=== PATIENT | female | born 1945 | race Caucasian/White ===

== ENCOUNTER 2016-10-26 14:13 | Inpatient (IN) ==
--- NOTE | 2016-10-26 16:13 | Emergency Department Note ---
Disposition Clinical Impression: Fracture of right tibia Qualifiers: Encounter type: initial encounter Tibia location: distal Fracture type: closed Fracture morphology: unspecified fracture morphology Qualified Code(s): S82.301A - Unspecified fracture of lower end of right tibia, initial encounter for closed fracture Disposition: Admitted As Inpatient Condition: Fair Referrals: Krystle Oseguera MD [Primary Care Provider] - Forms: ED Satisfaction Letter Time of Disposition: 16:28 Lower Extremity Injury HPI - General Chief Complaint: ED Extremity Problem,Nontraumatic Stated Complaint: right foot/ankle injury Time Seen by Provider: 10/26/16 16:11 Source: patient, EMS Mode of arrival: wheelchair Limitations: altered mental status Nursing Notes Reviewed: Yes Vital Signs Reviewed: Yes - History of Present Illness HPI Narrative: 71-year-old female brought to the emergency department for evaluation of the right ankle/right lower extremity injury sustained 3 days ago. The patient states that she "just rolled out of bed onto the floor". She complains of pain and swelling that is well localized to the right ankle and right lower extremity. She denies any numbness or tingling distal to the area of injury. She has not taken any [id number] or prescription medications up to this point in an attempt to alleviate her symptoms. She states that she has been unable to bear weight on the affected extremity since the time of injury. Her friend that accompanies her states that she has laid in bed the entire time since the injury occurred. She denies any head injury or loss of consciousness. She denies any other injuries. Pt Subjective Complaint: leg injury, ankle injury Injury location: Right Leg, Right ankle Onset (ago): day(s) (3 days ago) Mechanism of Injury: fall Context: fell out of bed Place: home Pain Severity: severe Improves with: nothing Worsens with: weight bearing, movement, palpation Associated symptoms: Reports: unable to bear weight - Related Data Previous Rx's Medication Instructions Recorded Nicotine Patch [Nicoderm] 1 each TD DAILY #14 patch.td24 11/02/14 Omeprazole [PriLOSEC] 20 mg PO DAILY 30 Days 11/02/14 Potassium Chloride Elixir 20 meq PO DAILY #7 mls 11/02/14 [Potassium Chloride] Albuterol Neb [Proventil Neb] 2.5 mg IH Q4HR #30 vial.neb 06/17/15 Azithromycin [Zithromax] 250 mg PO DAILY #4 tablet 06/17/15 predniSONE [PredniSONE] 40 mg PO DAILY #8 tablet 06/17/15 Ondansetron ODT [Zofran ODT] 1 - 2 tab SL Q4HR #20 tab.rapdis 06/26/15 Doxycycline Hyclate 100 mg PO BID #20 capsule 04/01/16 predniSONE [PredniSONE] 60 mg PO DAILY 5 Days 04/01/16 Allergies Allergy/AdvReac Type Severity Reaction Status Date / Time No Known Allergies Allergy Verified 06/17/15 17:44 All systems ED: reviewed and negative except as stated. Constitutional: Denies: fever, chills, weakness, weight change Eyes: Denies: eye pain, eye discharge, vision change ENT ED: Denies: ear pain, throat pain, dental pain, hearing loss, epistaxis, congestion, dysphagia Cardiovascular: Denies: chest pain, palpitations, dyspnea on exertion, edema, syncope Respiratory: Denies: cough, dyspnea, wheezes, hemoptysis, stridor Gastrointestinal: Denies: abdominal pain, nausea, vomiting, diarrhea, constipation, hematemesis, melena, hematochezia Genitourinary: Denies: dysuria, frequency, hematuria, discharge Musculoskeletal: Reports: as per HPI, arthralgia (Right ankle and right lower extremity injury). Denies: back pain, neck pain, myalgia Integumentary: Denies: rash, abrasion, lesions Neurological: Denies: headache, weakness, numbness, paresthesias, confusion, abnormal gait, vertigo Psychiatric: Denies: anxiety, depression, suicidal thoughts, homicidal thoughts , auditory hallucinations, visual hallucinations Endocrine: Denies: fatigue Hematological/Lymphatic: Denies: easy bleeding, easy bruising Allergic/Immunologic: Denies: facial swelling, urticaria Past Medical History - Past Medical History Attestation: Yes The following information was validated with the patient. Source: patient, nursing notes reviewed Medical history: Reports: COPD, hyperlipidemia, hypertension Surgical history: Reports: hysterectomy, other Psychiatric history: Reports: no psych history - Social History Smoking Status: Current every day smoker Smokeless Tobacco Status: No Alcohol use: Reports: none Drug use: Reports: none, other Physical Exam - General Limitations: altered mental status General appearance: alert - Head Head exam: atraumatic, normocephalic, normal inspection - Eye Eye exam: Present: normal appearance, PERRL, EOMI. Absent: nystagmus - ENT ENT exam: mucous membranes moist - Neck Neck exam: Present: normal inspection, full ROM, trachea midline - Respiratory Respiratory exam: Present: normal lung sounds bilaterally - Cardiovascular Cardiovascular exam: Present: regular rate, normal rhythm, normal heart sounds - Abdominal Exam Abdominal exam: Present: soft, Non-Tender, normal bowel sounds - Expanded Lower Extremity Exam Hip/Pelvis exam: Present: normal inspection, full ROM Upper leg exam: Present: normal inspection, full ROM Knee exam: Present: normal inspection, full ROM. Absent: tenderness Lower leg exam: Present: tenderness (Tenderness along the entire distal half of the right lower leg), swelling (Moderate degree of swelling noted, distal one half of the right lower leg), ecchymosis (Moderate degree of ecchymosis Noted, distal one half of the right lower leg). Absent: erythema Ankle exam: Present: tenderness (Right ankle diffusely tender to palpation), swelling (Extensive diffuse swelling noted of the right ankle), ecchymosis ( Moderate to severe ecchymosis noted, right ankle). Absent: full ROM (Right ankle), abrasion, laceration Foot/toe exam: Present: swelling (Moderate degree of edema noted, dorsal aspect of right foot). Absent: calcaneal tenderness, tenderness at base of 5th metatarsal Neurovascular/Tendon exam: Present: normal capillary refill. Absent: pulse deficit, tendon deficit, extremity cold to touch Gait: unable to bear weight - Neurological Exam Neurological exam: Present: alert, oriented X3 - Psychiatric Psychiatric exam: Present: normal affect, normal mood - Skin Skin exam: Present: warm, dry, intact, normal color Course Course Narrative: I have discussed this patient's case with Dr. Bautista. Dr. Sousa has had a face- to-face evaluation with the patient. 1620: I have discussed this patient's case with Dr. Ulloa, orthopedic surgeon budget controller. Dr. Ulola recommends the application of a posterior splint and states that the patient should be admitted to the hospitalist service. He states that he will consult the patient once she is on the floor. Posterior splint applied by the ED engine emission technician. Neurovascular status intact status post splinting. 1625: The patient has declined my offer for pain medication at this time. I have informed her to please advise me if she changes her mind. 810: I spoke with Dipak Biggs, hospitalist, who has accepted the patient to the hospitalist service. Vital Signs Temperature 98.2 F 10/26/16 14:42 Pulse Rate 95 10/26/16 14:42 Respiratory Rate 18 10/26/16 14:42 Blood Pressure 121/73 10/26/16 14:42 O2 Sat by Pulse Oximetry 96 10/26/16 14:42 Temperature 98.2 F 10/26/16 14:42 Pulse Rate 95 10/26/16 14:42 Respiratory Rate 18 10/26/16 14:42 Blood Pressure 121/73 10/26/16 14:42 O2 Sat by Pulse Oximetry 96 10/26/16 14:42 Oxygen Delivery Oxygen Delivery Room Air Extremity Injury, Lower - Medical Records Medical records reviewed: Yes I reviewed the patient's medical records. - Lab Data Lab results reviewed: Yes I reviewed the patient's lab results. Result diagrams: 10/26/16 16:47 Lab Results 10/26/16 Range/Units 16:47 WBC 12.2 H (4.3-11.1) K/mcL RBC 4.01 (3.82-4.97) M/mcL Hgb 12.2 (11.5-15.4) g/dL Hct 36.0 (35.3-44.9) % MCV 89.8 (83.0-100.0) fL MCH 30.4 (28.0-33.3) pg MCHC 33.9 (31.6-35.5) g/dL RDW 12.3 (11.5-14.5) % Plt Count 298 (140-400) K/mcL MPV 8.5 L (9.4-12.4) fL Immature Gran % 0.4 (0-4) % Seg Neutrophils % 76.9 % Lymphocytes % 13.7 % Monocytes % 8.6 % Eosinophils % 0.2 % Basophils % 0.2 % Neutrophils # 9.4 H (1.6-8.9) K/mcL Lymphocytes # 1.7 (0.6-4.6) K/mcL Monocytes # 1.1 (0.0-1.3) K/mcL Eosinophils # 0.0 (0.0-0.6) K/mcL Basophils # 0.0 (0.0-0.2) K/mcL - Radiology Data Radiology results reviewed: Yes I reviewed the patient's radiology results. Ankle X-Ray 10/26/16 14:46 IMPRESSION: 1. Comminuted fracture involving the distal tibial diaphysis. D/ / 10/26/2016 15:56:42 Javier Joyner MD / bcarter Interpreting Provider: Javier Joyner MD - EKG Data EKG attestation: Yes I reviewed and interpreted this EKG. EKG results narrative: EKG reviewed by Dr. Bautista as well. EKG shows a sinus rhythm with short SD interval and a possible anterolateral LA of indeterminate age at a rate of 97 bpm. SD interval 99, QRS duration 82, QT/QTc interval 316/371. No ectopy noted. No STEMI.
[2016-10-26 16:53] LABS: Basophils % 0.2 %; Eosinophils % 0.2 %; Hemoglobin 12.2 g/dL (11.5-15.4); Immature Granulocytes % 0.4 % (0-4); Lymphocytes # 1.7 K/mcL (0.6-4.6); Lymphocytes % 13.7 %; Mean Corpuscular HGB Conc 33.9 g/dL (31.6-35.5); Mean Corpuscular Hemoglobin 30.4 pg (28.0-33.3); Mean Corpuscular Volume 89.8 fL (83.0-100.0); Mean Platelet Volume 8.5 fL (9.4-12.4); Monocytes # 1.1 K/mcL (0.0-1.3); Monocytes % 8.6 %; Neutrophils # 9.4 K/mcL (1.6-8.9); Platelet Count 298 K/mcL (140-400); Red Blood Count 4.01 M/mcL (3.82-4.97); Red Cell Distribution Width 12.3 % (11.5-14.5); Segmented Neutrophils % 76.9 %
[2016-10-26 17:08] LABS: BUN/Creatinine Ratio 30 (6-26); Blood Urea Nitrogen 18 mg/dL (7-20); Calcium 9.4 mg/dL (8.6-10.8); Carbon Dioxide 30 mEq/L (19-29); Chloride 96 mEq/L (98-109); Glucose 105 mg/dL (70-99); Osmolality,Calculated 272 (280-300); Sodium 130 mEq/L (136-145); eGFR For African Americans > 60 (> 60); eGFR For Non-African Americans > 60 (> 60)
[2016-10-26 17:11] LABS: INR 1.1; Prothrombin Time 11.9 Seconds (9.4-12.1)
[2016-10-26 17:14] LABS: Activated Partial Thrombo Time 23.3 Seconds (26.0-36.0)
--- NOTE | 2016-10-26 19:28 | Orthopedic Consult Note ---
Date of Encounter: 10/26/16 Time of Encounter: 19:23 History of Present Illness Chief complaint: Right ankle pain HPI: Ms. Choi is a 71 year old female who sustained an injury to her right ankle at home up probably 3 days ago. She has been unable to ambulate with any weightbearing on the right lower extremity. She was ultimately brought to the emergency room by squad where x-rays taken revealed evidence of a right tibia fracture. She was admitted for further management. Pertinent orthopedic examination to his time reveals the right lower extremity in a posterior splint. There appears to be intact distal neurosensory exam. I reviewed x-rays of the right ankle. This reveals some generalized osteopenia. There is a nondisplaced fracture of the distal metadiaphyseal region of the tibia. Impression: Nondisplaced fracture right distal tibia (metadiaphyseal) Recommendation: With a true nondisplaced fracture and the patient's rather frail condition with multiple underlying medical conditions, would recommend a conservative management. At this time would continue with a posterior splint until swelling has subsided. We will change to a more definitive immobilization at follow-up as an outpatient. In the meantime will start physical therapy and occupational therapy with social security specialist consultation for discharge planning. Thank you very much for allowing me to seen care for Mrs. Choi. Sincerely, Ochoa Ulloa,DO Past Med Surg Social Fam HX - Past Medical History Medical history: COPD, hyperlipidemia, hypertension Psychiatric history: no psych history - Past Surgical History Surgical History: hysterectomy, other - Social History Smoking Status: Current every day smoker Smokeless Tobacco Status: No Alcohol use: none Drug use: none - Family History Mother Family Member Ethnicity: Non- Living Status: Hx Family Cardiac Disorders: No Hx Family Respiratory Disorders: No Hx Family Cancer: Yes Hx Family GI Disorders: No Hx Family Endocrine Disorder: No Hx Family Neuromuscular Disorders: No Hx Family Neurologic Disorders: No Hx Family HEENT Disorders: No Hx Family Autoimmune Disorders: No Father Living Status: Unknown Medications and Allergies Aclidinium [place] [Tudorza Pressair] 1 puff IH BID 10/26/16 [History] Albuterol Sulfate [Ventolin Hfa] 2 puff IH Q4-6H PRN 10/26/16 [History] Alendronate Sodium [Fosamax] 70 mg PO QWEEK 10/26/16 [History] Benztropine [Cogentin] 1 mg PO HS 10/26/16 [History] Calcium Carbonate/Vitamin D2 [Ra Oyster Shell-Vitamin D Tab] 1 tab PO DAILY [History] Fluticasone/Salmeterol [Advair 250-50 Diskus] 1 puff IH BID 10/26/16 [History] Haloperidol Decanoate [Haldol] 50 mg IM QMONTH 10/26/16 [History] Lisinopril [Zestril] 5 mg PO DAILY 10/26/16 [History] Potassium Chloride [Klor-Con 10] 20 meq PO DAILY 10/26/16 [History] Tramadol HCl [Ultram] 50 mg PO QID PRN 10/26/16 [History] 3 Allergy/AdvReac Type Severity Reaction Status Date / Time No Known Allergies Allergy Verified 06/17/15 17:44 All Systems Reviewed: A 10-system review of systems was performed and is negative for pertinent findings except as documented above in the HPI. Physical Exam - Constitutional Vitals: Temp Pulse Resp BP Pulse Ox 98.0 F 91 16 124/83 99 10/26/16 17:57 10/26/16 17:57 10/26/16 17:57 10/26/16 17:57 10/26/16 17:57 Results - Labs Result Diagrams: 10/26/16 16:47 10/26/16 16:47 Labs: Abnormal lab results WBC 12.2 K/mcL (4.3-11.1) H 10/26/16 16:47 MPV 8.5 fL (9.4-12.4) L 10/26/16 16:47 Neutrophils # 9.4 K/mcL (1.6-8.9) H 10/26/16 16:47 APTT 23.3 Seconds (26.0-36.0) L 10/26/16 16:47 Sodium 130 mEq/L (136-145) L 10/26/16 16:47 Potassium 5.0 mEq/L (3.5-4.5) H 10/26/16 16:47 Chloride 96 mEq/L (98-109) L 10/26/16 16:47 Carbon Dioxide 30 mEq/L (19-29) H 10/26/16 16:47 BUN/Creatinine Ratio 30 (6-26) H 10/26/16 16:47 Glucose 105 mg/dL (70-99) H 10/26/16 16:47 Calculated Osmolality 272 (280-300) L 10/26/16 16:47 All other labs normal. - Diagnostic results Ankle/Foot x-ray: image reviewed Consult Discharge Plan - Plan Referrals: Krystle Oseguera MD [Primary Care Provider] -
[2016-10-26] MEDS ORDERED: Naloxone 0.4 MG/ML INJ IVP PRN (20:35)
[2016-10-26] MEDS ORDERED: Acetaminophen 325 MG TABLET PO PRN (20:35)
[2016-10-26] MEDS ORDERED: *HR* Morphine 2 MG/ML SYRINGE IVP PRN (20:35)
[2016-10-26] MEDS ORDERED: Ondansetron 4 MG/2 ML VIAL IVP PRN (20:35)
--- NOTE | 2016-10-26 21:09 | Internal Med History&Physical ---
<Dipak Biggs - Last Filed: 10/26/16 21:56> Date of Encounter: 10/26/16 Time of Encounter: 20:00 Assessment and Plan (1) Fracture of right tibia Current visit: Yes Status: Acute Patient presents with acute fracture of right tibia sustained from falling from bed three days ago. X-ray right ankle today reveals generalized osteopenia and nondisplaced fracture of the distal metadiaphyseal region of the tibia. Orthopedic consult ordered in the ED and patient was seen by Dr. Ulloa whose plan is conservative management with continuation of posterior splint until swelling has subsided. We will change to more definitive immobilization and follow-up as outpatient. Consults for PT/OT/SW ordered for strength assessment and discharge planning. Patient placed as falls precautions/up with assist/bed rest with bedside commode with assist only. Stair-step pain medications ordered for pain management. Will continue patient's Fosamax. Qualifiers: Encounter type: initial encounter Tibia location: distal Fracture type: closed Fracture morphology: unspecified fracture morphology Qualified Code(s ): S82.301A - Unspecified fracture of lower end of right tibia, initial encounter for closed fracture (2) Leukocytosis Current visit: Yes Status: Acute Patient presents with acute leukocytosis with WBC of 12.2. Patient is asymptomatic currently for signs of infection and CXR today does not indicate pneumonia. Urinalysis with reflex microscopic ordered to determine presence of possible UTI. Will consider adding IV antibiotic coverage for patient based on U /A and culture results. Follow-up labs ordered. Patient to be monitored for signs of increasing infection and/or SIRS criteria. Qualifiers: Leukocytosis type: unspecified Qualified Code(s): D72.829 - Elevated white blood cell count, unspecified (3) Acute hyperkalemia Current visit: Yes Status: Acute Patient presents with acute hyperkalemia with current potassium level of 5.0. Will hold patient's PO potassium and monitor patient's potassium level through follow-up lab work. (4) Tobacco abuse counseling Current visit: Yes Status: Acute Patient counseled regarding tobacco abuse and smoking cessation greater than 10 minutes. Discussed the dangers of continued tobacco abuse, especially since patient reports smoking 2 packs per day. Also covered smoking cessation options and techniques as well as effects of tobacco abuse and patient's bones and vasculature. Patient requested nicotine patch while inpatient. (5) HTN (hypertension) Current visit: Yes Status: Chronic Patient presents with history of chronic hypertension. Will monitor patient and vital signs and continue patient's lisinopril. Qualifiers: Hypertension type: essential hypertension Qualified Code(s): I10 - Essential (primary) hypertension (6) HLD (hyperlipidemia) Current visit: Yes Status: Chronic Patient presents with history of chronic hyperlipidemia. Patient does not currently take any antihyperlipidemic medications. Lipid panel ordered. Will consider adding Lipitor to patient's medications based on lipid panel results. Qualifiers: Hyperlipidemia type: pure hypercholesterolemia Qualified Code(s): E78.00 - Pure hypercholesterolemia, unspecified; E78.0 - Pure hypercholesterolemia (7) Malnutrition of moderate degree Current visit: Yes Status: Chronic Patient presents with chronic malnutrition of moderate degree. Patient appears malnourished on examination and has current BMI of 18.9 and weight of 43.998 kg. Nutrition consult ordered. (8) Mobility impaired Current visit: Yes Status: Chronic Patient presents with report of long-term wheelchair use. Patient was seen in ED today for fall at home sustained three days ago that resulted in a fracture of her right distal tibial diaphysis. Patient to be placed as falls precautions/ up with assist/bed rest with bedside commode with assist only. SW/PT/OT consults ordered to assess patient for strength and post-discharge needs. (9) COPD (chronic obstructive pulmonary disease) Current visit: Yes Status: Chronic Patient presents with history of chronic COPD. Patient reports she currently smokes 2 PPD. Patient counseled on tobacco cessation. Patient to be placed on supplemental O2 with SpO2 monitoring. DuoNebs Q4 scheduled ordered. Qualifiers: COPD type: unspecified COPD Qualified Code(s): J44.9 - Chronic obstructive pulmonary disease, unspecified (10) Osteopenia Current visit: Yes Status: Chronic Patient presents with chronic osteopenia as confirmed by X-ray of patient's ankle today. Will continue patient's Fosamax. Qualifiers: Osteopenia location: ankle Qualified Code(s): M85.871 - Other specified disorders of bone density and structure, right ankle and foot (11) DVT prophylaxis Current visit: Yes Status: Acute Patient to be placed on DVT prophylaxis due to current admission protocol and current bed rest status. Order for bilateral foot pumps and JEISON hose placed by Dr. Ulloa. Internal Medicine - H&P: HPI Chief complaint: Right ankle/foot injury from fall Admitted From: Emergency Dept Plans for Post Hospital Care: Transfer Inp Rehab Fac History of present illness: Ms. Choi is a 71 year old female who presents from the ED with chief complaint of an injury to her right foot and ankle that she sustained from falling out of bed three days ago. She denies hitting her head or blacking out. Patient appears mildly altered in mental status during examination. She states she is not experiencing any pain and she has not taken any pain medications for the injury. She denies any numbness and tingling to the area, chest pain, shortness of breath, recent illness, chills, fever, nausea, vomiting, abdominal pain, headache, lightheadedness, dizziness, pre-syncope, or syncope. She states that she cannot put weight on the right foot at this time. Ankle x-ray today shows comminuted fracture involving the distal tibial diaphysis. Patient has no known allergies at this time. Ms. Choi appears moderately malnourished during this examination. Patient's medical history includes osteopenia, COPD, hyperlipidemia, and hypertension. Orthopedic consult ordered in the ED and patient was seen by Dr. Ulloa with plans for conservative management with continuation of posterior splint until swelling has subsided. More definitive immobilization will be done on swelling is reduced with follow-up as outpatient. Consults for social work, PT, OT, and nutrition ordered. Ms. Choi is at moderate risk for further morbidity due to current fracture, safety concerns, and risk for continued falls due to AMS and will be placed as inpatient status with orders for continuous cardiac telemetry due to patient's current EKG which shows sinus rhythm with short AR interval with possible anterolateral myocardial infarction of indeterminate age, stair-step pain medications for pain management, dysphagia screen due to AMS, cardiac diet once dysphagia screen is passed, and falls/safety precautions. Patient currently has leukocytosis with WBC of 12.2 but currently has no symptoms of infection or fever with temperature of 98.2 and respiratory rate of 18. Urinalysis with reflex microscopic ordered to determine presence of UTI. Patient's 1-view CXR today shows COPD without acute abnormality. Patient will not be NPO due to no planned surgical intervention at this time. Patient to be monitored for signs of increasing pain, infection, cardiac, and/or respiratory distress. Patient is a current smoker reporting she smokes 2 PPD. Patient was counseled for >10 minutes regarding the dangers of smoking, smoking cessation techniques, and the effect of tobacco abuse on her heart and bones. Patient requested nicotine patch while inpatient. Time spent with patient >40 minutes. Past Med Surg Social Fam HX - Past Medical History Source: patient Medical history: COPD, hyperlipidemia, hypertension Psychiatric history: no psych history - Past Surgical History Surgical History: hysterectomy (Total), other - Social History Smoking Status: Current every day smoker Packs per day: 2 PPD Smokeless Tobacco Status: No Alcohol use: none Drug use: none Current living situation: Home Activity Level: Wheelchair bound Recent Out of Country Travel Within the Last 8 Weeks: No Exposure or Possible Exposure to Illness During Travel: No - Family History Mother Race: Family Member Ethnicity: Non- Living Status: Hx Family Cardiac Disorders: Yes (HD) Father History Unknown: Yes Race: Family Member Ethnicity: Non- Living Status: Brother Race: Family Member Ethnicity: Non- Living Status: Still Living Hx Family Medical Disorders: No Sister Race: Family Member Ethnicity: Non- Living Status: Still Living Hx Family Medical Disorders: No Internal Medicine - H&P: Meds Aclidinium [place] [Tudorza Pressair] 1 puff IH BID 10/26/16 [History] Albuterol Sulfate [Ventolin Hfa] 2 puff IH Q4-6H PRN 10/26/16 [History] Alendronate Sodium [Fosamax] 70 mg PO QWEEK 10/26/16 [History] Benztropine [Cogentin] 1 mg PO HS 10/26/16 [History] Calcium Carbonate/Vitamin D2 [Ra Oyster Shell-Vitamin D Tab] 1 tab PO DAILY [History] Fluticasone/Salmeterol [Advair 250-50 Diskus] 1 puff IH BID 10/26/16 [History] Haloperidol Decanoate [Haldol] 50 mg IM QMONTH 10/26/16 [History] Lisinopril [Zestril] 5 mg PO DAILY 10/26/16 [History] Potassium Chloride [Klor-Con 10] 20 meq PO DAILY 10/26/16 [History] Tramadol HCl [Ultram] 50 mg PO QID PRN 10/26/16 [History] 3 Allergy/AdvReac Type Severity Reaction Status Date / Time No Known Allergies Allergy Verified 06/17/15 17:44 All Systems PM: A 10-system review of systems was performed and is negative for pertinent findings except as documented above in the HPI. - Constitutional Constitutional: as per HPI, falls, no chills, no fever(s), no night sweats - EENT Eyes: no change in vision, no discharge, no pain, no photophobia Ears: no ear discharge, no ear pain, no tinnitus Nose, mouth and throat: no dysphagia, no nasal discharge, no neck pain, no sore throat - Breasts Breasts: as per HPI - Cardiovascular Cardiovascular ROS IM: no chest pain, no diaphoresis, no dyspnea, no lightheadedness, no palpitations, no syncope - Respiratory Respiratory: no cough, no dyspnea, no wheezing, no excessive phlegm production - Gastrointestinal Gastrointestinal: no abdominal pain, no diarrhea, no hematemesis, no hematochezia, no melena, no nausea, no vomiting - Genitourinary Genitourinary: no change in urinary stream, no dysuria, no flank pain, no hematuria Menstruation: as per HPI, post hysterectomy - Musculoskeletal Musculoskeletal ROS IM: no numbness, no tingling - Integumentary Integumentary IM: no rash, no unusual bruising - Neurological Neurological ROS: no confusion, no convulsions, no focal weakness, no numbness, no tingling, no tremor(s) - Psychiatric Psychiatric: as per HPI - Endocrine Endocrine IM: as per HPI - Hematologic/Lymphatic Hematologic/Lymphatic: no easy bruising - Allergic/Immunologic Allergic/Immunologic: as per HPI - Constitutional Vitals: Temp Pulse Resp BP Pulse Ox 98.1 F 93 23 155/89 99 10/26/16 20:16 10/26/16 20:16 10/26/16 20:16 10/26/16 20:16 10/26/16 20:16 General appearance: Present: A&O X 2, no acute distress, underweight, answers questions appropriately - Head Head exam: Present: atraumatic, normocephalic - Eye Eye exam: Present: PERRL, conjuntiva pink, sclera anicteric Pupils: Present: PERRL - ENT ENT exam: Present: normal exam, normal external ear exam - Neck Neck exam general surgery: Present: normal inspection, supple, trachea midline. Absent: lymphadenopathy - Respiratory Respiratory exam: Present: CTAB. Absent: accessory muscle use, rales, rhonchi, wheezes - Cardiovascular Cardiovascular exam: Present: RRR, +S1, +S2. Absent: diastolic murmur, gallop, rubs, systolic murmur - GI/Abdominal GI/Abdominal exam: Present: normal bowel sounds, soft, no peritoneal signs. Absent: distended, tenderness - Rectal Rectal exam: Present: deferred - Additional comments: exam deferred. - Extremities Exam Extremities exam: Present: joint swelling (Right foot and ankle), tenderness ( Right foot and ankle), warm, radial pulses palpable and symmetrical - Back Exam Back exam: Present: normal inspection - Neurological Exam Neurological exam: Present: alert, altered - Psychiatric Psychiatric exam: Present: flat affect - Skin Skin exam: Present: dry, intact Internal Med - H&P Results - Labs CBC & Chem 7: 10/26/16 16:47 10/26/16 16:47 - EKG Data EKG shows normal: sinus rhythm - EKG Data Prior EKG available for review: no Interpretation IM: suggestive of ischemia EKG comments: 10/26/16 21:24 EKG dated 10/26/16 shows sinus rhythm with short AR interval and possible anterolateral myocardial infarction of indeterminate age. Abnormal ECG. - Diagnostic Studies Chest x-ray Additional comments: Impressions Chest X-Ray 10/26/16 16:20 IMPRESSION: COPD without acute abnormality. D/ / Ebenezer Hatfield MD / Ebenezer Hatfield MD Interpreting Provider: Ebenezer Hatfield MD Other Images Additional comments: Impressions Ankle X-Ray 10/26/16 14:46 IMPRESSION: 1. Comminuted fracture involving the distal tibial diaphysis. D/ / 10/26/2016 15:56:42 Javier Joyner MD / [email or web address] Interpreting Provider: Javier Joyner MD <Ariana Velásquez Raghu - Last Filed: 10/26/16 22:35> Date of Encounter: 10/26/16 Internal Medicine - H&P: HPI History of present illness: Ms. Choi is a 71 year old female All Systems PM: A 10-system review of systems was performed and is negative for pertinent findings except as documented above in the HPI. - Constitutional Vitals: Temp Pulse Resp BP Pulse Ox 98.1 F 93 23 155/89 99 10/26/16 20:16 10/26/16 20:16 10/26/16 20:16 10/26/16 20:16 10/26/16 20:16 Internal Med - H&P Results - Labs CBC & Chem 7: 10/26/16 16:47 10/26/16 16:47 Labs: Urine 10/26/16 Range/Units 21:44 Urine Color Yellow (Yellow) Urine Clarity Cloudy A (Clear) Urine pH 6.5 (5.0-8.0) pH Units Ur Specific [place] 1.022 (1.010-1.025) Urine Protein Negative (Neg-Trace) mg/dL Urine Glucose (UA) Normal (Normal) mg/dL - Attending Attestation I have personally performed a face to face evaluation on this patient. I have reviewed and agree with the care plan. History and Exam by me shows: Patient is a 71-year-old female who is wheelchair bound at baseline. While transferring out of bed into the wheelchair she fell with resultant pain along her right leg, unable to weight-bear, worse with movement, improved with pain meds and rest. She she lives with a friend. X-ray noted a comminuted mutated fracture in the distal tibial. Orthopedic recommend posterior splint for now - pending further evaluation tomorrow General - AAO x 3 Psych - Appropriate affect/speech. No agitation Eyes - MITCHELL. Eye lids intact. No scleral icterus Heart - Sinus. RRR. S1 and S2 present. No added HS/murmurs appreciated. No elevated JVD appreciated. No calf swellings/erythema Lung - Adequate air entry b/l, No crackes/wheezes appreciated GI - Soft, non-tender. No hepatosplenomegaly/ascites. BS+ - No CVA/suprapubic tenderness or palpable bladder distension MSK - right leg in splint ROS 14 point review of systems reviewed as best as possible given presentation. Pertinent positive or negative as per HPI or otherwise reviewed as negative Assessment and plan - Admitted for fracture of distal tibia. Orthopedic consult for evaluation. Splint for now. PT consult, evaluate for placement for now
[2016-10-26 21:54] LABS: Bilirubin,Urine Negative (Negative); Blood,Urine Negative (Negative); Clarity,Urine Cloudy (Clear); Color,Urine Yellow (Yellow); Glucose,Urine (UA) Normal (Normal); Ketones,Urine Trace mg/dL (Negative); Leukocyte Esterase,Urine Moderate (Negative); Nitrite,Urine Negative (Negative); PH,Urine 6.5 pH Units (5.0-8.0); Protein,Urine Negative (Neg-Trace); Specific Gravity,Urine 1.022 (1.010-1.025); Urobilinogen,Urine Normal (Normal)
[2016-10-26 21:56] LABS: Bacteria,Urine None Seen per hpf (None-Few); Hyaline Casts,Urine None Seen per lpf (None-Few); Squamous Epithelial Cell,Urine Many per lpf (None-Few)
[2016-10-26 22:29] LABS: Amorphous Sediment,Urine Few (Few)
[2016-10-26] MEDS: *HR* HYDROcodone/Acet 5/325 mg TABLET PO PRN (22:48)
[2016-10-26] MEDS: Nicotine 21 MG PATCH.TD24 TD SCH (22:51)
[2016-10-26] MEDS: Ipratropium/Albuterol Neb 3 ML IH SCH (23:23)
[2016-10-27] MEDS: Ipratropium/Albuterol Neb 3 ML IH SCH ×6 (04:15→23:00)
[2016-10-27] MEDS ORDERED: Ringers Solution, Lactated 1,000 ML IVC SCH (05:30)
[2016-10-27 06:40] LABS: Basophils % 0.1 %; Eosinophils % 0.3 %; Hematocrit 32.5 % (35.3-44.9); Hemoglobin 11.5 g/dL (11.5-15.4); Immature Granulocytes % 0.3 % (0-4); Lymphocytes # 1.2 K/mcL (0.6-4.6); Lymphocytes % 17.2 %; Mean Corpuscular HGB Conc 35.4 g/dL (31.6-35.5); Mean Corpuscular Hemoglobin 31.4 pg (28.0-33.3); Mean Corpuscular Volume 88.8 fL (83.0-100.0); Monocytes # 0.7 K/mcL (0.0-1.3); Monocytes % 9.5 %; Neutrophils # 5.2 K/mcL (1.6-8.9); Platelet Count 279 K/mcL (140-400); Red Blood Count 3.66 M/mcL (3.82-4.97); Red Cell Distribution Width 12.3 % (11.5-14.5); Segmented Neutrophils % 72.6 %
[2016-10-27 06:52] LABS: INR 1.2; Prothrombin Time 12.5 Seconds (9.4-12.1)
[2016-10-27 06:54] LABS: BUN/Creatinine Ratio 26 (6-26); Blood Urea Nitrogen 15 mg/dL (7-20); Calcium 8.9 mg/dL (8.6-10.8); Carbon Dioxide 29 mEq/L (19-29); Chloride 94 mEq/L (98-109); Chol/HDL Ratio 2.6 (0-4.9); Cholesterol 129 mg/dL (< 200); Glucose 105 mg/dL (70-99); HDL Cholesterol 49 mg/dL (40-59); LDL Cholesterol,Calculated 68 mg/dL (0-99); Magnesium 1.7 mg/dL (1.6-2.6); Osmolality,Calculated 269 (280-300); Potassium 4.2 mEq/L (3.5-4.5); Sodium 129 mEq/L (136-145); Triglycerides 62 mg/dL (< 150); eGFR For African Americans > 60 (> 60); eGFR For Non-African Americans > 60 (> 60)
[2016-10-27] MEDS: Nicotine 21 MG PATCH.TD24 TD SCH (08:37)
[2016-10-27] MEDS: Pantoprazole 40 MG VIAL IVP SCH (08:37)
--- NOTE | 2016-10-27 14:51 | Electrocardiograph Report ---
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
--- NOTE | 2016-10-27 15:32 | Internal Med Progress Note ---
Date of Encounter: 10/27/16 Time of Encounter: 09:15 - Assessment and plan (1) Fracture of right tibia Current Visit: Yes Status: Acute Assessment and plan: Continue supportive care and conservative management with leg splint. Physical therapy. Patient will most likely need placement to skilled rehabilitation. Qualifiers: Encounter type: initial encounter Tibia location: distal Fracture type: closed Fracture morphology: unspecified fracture morphology Qualified Code(s ): S82.301A - Unspecified fracture of lower end of right tibia, initial encounter for closed fracture (2) Acute hyperkalemia Current Visit: Yes Status: Resolved Assessment and plan: This has now resolved (3) COPD (chronic obstructive pulmonary disease) Current Visit: Yes Status: Chronic Assessment and plan: Chronic. continue bronchodilators Qualifiers: COPD type: unspecified COPD Qualified Code(s): J44.9 - Chronic obstructive pulmonary disease, unspecified (4) DVT prophylaxis Current Visit: Yes Status: Acute Assessment and plan: On SCDs. We will add heparin subcutaneous (5) HLD (hyperlipidemia) Current Visit: Yes Status: Chronic Assessment and plan: Normal lipid profile. No indication for medications at this time Qualifiers: Hyperlipidemia type: pure hypercholesterolemia Qualified Code(s): E78.00 - Pure hypercholesterolemia, unspecified; E78.0 - Pure hypercholesterolemia (6) HTN (hypertension) Current Visit: Yes Status: Chronic Assessment and plan: Blood pressure is well controlled Qualifiers: Hypertension type: essential hypertension Qualified Code(s): I10 - Essential (primary) hypertension (7) Leukocytosis Current Visit: Yes Status: Resolved Assessment and plan: WBC count is 7.2 today. Qualifiers: Leukocytosis type: unspecified Qualified Code(s): D72.829 - Elevated white blood cell count, unspecified (8) Malnutrition of moderate degree Current Visit: Yes Status: Chronic Assessment and plan: Nutrition has been consulted. Patient lacks appetite. We will add Remeron to stimulate appetite. (9) Osteopenia Current Visit: Yes Status: Chronic Assessment and plan: Continue fosamax as outpatient Qualifiers: Osteopenia location: ankle Qualified Code(s): M85.871 - Other specified disorders of bone density and structure, right ankle and foot - Subjective Interval history: Patient is awake and alert. Currently lying in bed. Denies any significant pain. Getting ready to participate in physical therapy. No other new complaints at this time. - Constitutional Vitals: Temp Pulse Resp BP Pulse Ox 98.4 F 93 20 119/67 96 10/27/16 15:06 10/27/16 15:06 10/27/16 15:07 10/27/16 15:06 10/27/16 15:07 General appearance: Present: A&O X 2, no acute distress, underweight, answers questions appropriately - Neck Neck exam general surgery: Present: supple, trachea midline. Absent: lymphadenopathy - Respiratory Respiratory exam: Present: CTAB. Absent: accessory muscle use, rales, rhonchi, wheezes - Cardiovascular Cardiovascular exam: Present: RRR, +S1, +S2. Absent: diastolic murmur, gallop, rubs, systolic murmur - GI/Abdominal GI/Abdominal exam: Present: normal bowel sounds, soft, no peritoneal signs. Absent: distended, tenderness - Extremities Exam Extremities exam: Present: warm, radial pulses palpable and symmetrical. Absent : calf tenderness, cyanotic, pedal edema Additional comments: Right foot and ankle in splint. - Neurological Exam Neurological exam: Present: alert, no focal deficits. Absent: speech deficit Internal Medicine: Result - Labs CBC & Chem 7: 10/27/16 05:49 10/27/16 05:49 Labs: Short CBC 10/27/16 Range/Units 05:49 WBC 7.2 (4.3-11.1) K/mcL Hgb 11.5 (11.5-15.4) g/dL Hct 32.5 L (35.3-44.9) % Plt Count 279 (140-400) K/mcL Neutrophils # 5.2 (1.6-8.9) K/mcL BMP 10/27/16 05:49 Sodium 129 L Potassium 4.2 Chloride 94 L Carbon Dioxide 29 BUN 15 Creatinine 0.57 Glucose 105 H Calcium 8.9 Urine 10/26/16 Range/Units 21:44 Urine Color Yellow (Yellow) Urine Clarity Cloudy A (Clear) Urine pH 6.5 (5.0-8.0) pH Units Ur Specific [place] 1.022 (1.010-1.025) Urine Protein Negative (Neg-Trace) mg/dL Urine Glucose (UA) Normal (Normal) mg/dL - ABG Interpretation ABG results: PT/INR, D-dimer PT 12.5 Seconds (9.4-12.1) H 10/27/16 05:49 - VTE Documentation of Mechanical Device: Graduated compression elastic hosiery Consult Discharge Plan - Plan Referrals: Krystle Oseguera MD [Primary Care Provider] -
[2016-10-27] MEDS ORDERED: 0.9 % Sodium Chloride 1,000 ML IVC SCH (17:15)
[2016-10-27] MEDS: *HR* Heparin 5,000 UNIT/ML VIAL SQ SCH (17:16)
[2016-10-27] MEDS: *HR* HYDROcodone/Acet 5/325 mg TABLET PO PRN (18:45)
[2016-10-28] MEDS: Ipratropium/Albuterol Neb 3 ML IH SCH ×3 (04:39→10:58)
[2016-10-28 06:16] LABS: BUN/Creatinine Ratio 21 (6-26); Blood Urea Nitrogen 10 mg/dL (7-20); Calcium 8.2 mg/dL (8.6-10.8); Carbon Dioxide 27 mEq/L (19-29); Chloride 96 mEq/L (98-109); Glucose 87 mg/dL (70-99); Osmolality,Calculated 266 (280-300); Potassium 3.7 mEq/L (3.5-4.5); Sodium 129 mEq/L (136-145); eGFR For African Americans > 60 (> 60); eGFR For Non-African Americans > 60 (> 60)
[2016-10-28] MEDS: *HR* Heparin 5,000 UNIT/ML VIAL SQ SCH (06:47)
--- NOTE | 2016-10-28 09:01 | Discharge Summary ---
Date of Encounter: 10/28/16 Time of Encounter: 08:15 - Discharge Diagnosis (1) Fracture of right tibia Priority: Primary Status: Acute Qualifiers: Encounter type: initial encounter Tibia location: distal Fracture type: closed Fracture morphology: unspecified fracture morphology Qualified Code(s ): S82.301A - Unspecified fracture of lower end of right tibia, initial encounter for closed fracture (2) Acute hyperkalemia Priority: Secondary Status: Resolved (3) COPD (chronic obstructive pulmonary disease) Priority: Secondary Status: Chronic Qualifiers: COPD type: unspecified COPD Qualified Code(s): J44.9 - Chronic obstructive pulmonary disease, unspecified (4) DVT prophylaxis Priority: Secondary Status: Acute (5) HLD (hyperlipidemia) Priority: Secondary Status: Chronic Qualifiers: Hyperlipidemia type: pure hypercholesterolemia Qualified Code(s): E78.00 - Pure hypercholesterolemia, unspecified; E78.0 - Pure hypercholesterolemia (6) HTN (hypertension) Priority: Secondary Status: Chronic Qualifiers: Hypertension type: essential hypertension Qualified Code(s): I10 - Essential (primary) hypertension (7) Leukocytosis Priority: Secondary Status: Resolved Qualifiers: Leukocytosis type: unspecified Qualified Code(s): D72.829 - Elevated white blood cell count, unspecified (8) Malnutrition of moderate degree Priority: Secondary Status: Chronic (9) Osteopenia Priority: Secondary Status: Chronic Qualifiers: Osteopenia location: ankle Laterality: right Qualified Code(s): M85.871 - Other specified disorders of bone density and structure, right ankle and foot - Discharge Medications Prescriptions: HYDROcodone/Acet 5/325 mg [[place] 5-325 mg] 1 tab PO Q6HR PRN #14 tab PRN Reason: Moderate Pain (4-6) Aspirin [Lo-Dose Aspirin EC] 324 mg PO DAILY 30 Days Tramadol HCl [Ultram] 50 mg PO QID PRN #20 PRN Reason: Pain Home Medications: Aclidinium [place] [Tudorza Pressair] 1 puff IH BID 10/26/16 [History] Albuterol Sulfate [Ventolin Hfa] 2 puff IH Q4-6H PRN 10/26/16 [History] Alendronate Sodium [Fosamax] 70 mg PO QWEEK 10/26/16 [History] Benztropine [Cogentin] 1 mg PO HS 10/26/16 [History] Calcium Carbonate/Vitamin D2 [Ra Oyster Shell-Vitamin D Tab] 1 tab PO DAILY [History] Fluticasone/Salmeterol [Advair 250-50 Diskus] 1 puff IH BID 10/26/16 [History] Haloperidol Decanoate [Haldol] 50 mg IM QMONTH 10/26/16 [History] Lisinopril [Zestril] 5 mg PO DAILY 10/26/16 [History] Acetaminophen [Tylenol] 650 mg PO Q6HR PRN #0 tab 10/28/16 [Rx] Aspirin [Lo-Dose Aspirin EC] 324 mg PO DAILY 30 Days 10/28/16 [Rx] HYDROcodone/Acet 5/325 mg [[place] 5-325 mg] 1 tab PO Q6HR PRN #14 tab 10/28/16 [ Rx] Potassium Chloride [Klor-Con 10] 10 meq PO DAILY #30 10/28/16 [Rx] Tramadol HCl [Ultram] 50 mg PO QID PRN #20 10/28/16 [Rx] Allergies/Adverse Reactions: 3 Allergy/AdvReac Type Severity Reaction Status Date / Time No Known Allergies Allergy Verified 06/17/15 17:44 Date of admission: 10/26/16 20:35 Primary care physician: Krystle Oseguera Consults: 10/26/16 20:54 Consult to Nutrition [CONS] Routine Comment: Consulting Provider: NUTRITION Reason for Dietary Consult: Other Other:: Patient has BMI of 18.9 and appears undernourished Discharging clinician: Johanne Genao Anticipated date of discharge: 10/28/16 - Patient Status Disposition: Transfer SNF Condition: Fair Functional capacity at discharge: uses cane/walker Overall status at discharge: patient is progressing back to baseline - Discharge Instructions Follow Up With: Krystle Oseguera MD [Primary Care Provider] - (in 1-2 weeks) Ochoa Ulloa DO [Non-Partnered Physician] - (1-2 weeks) - Diet and Activity Activity: as per physical therapy Diet: low salt diet Hospital course: Ms. Choi is a 71 year old female patient with a history of COPD, hypertension , hyperlipidemia, schizophrenia, and she was hospitalized here after falling with resulting injury to her right foot and ankle. She was diagnosed with acute fracture of the distal right tibia. She was evaluated by orthopedics and recommended conservative management with posterior splint. On presentation she also had mild leukocytosis but no signs of active infection. This was monitored and improved by next day. She was evaluated by physical therapy and recommended placement to skilled rehabilitation. She will be discharged to skilled rehabilitation today. She will be on aspirin 325 mg for DVT prophylaxis due to decreased mobility and acute fracture. - Time Spent with Patient Total time spent providing and/or coordinating discharge services: Greater than 30 minutes (32 min) - Constitutional Vitals: Temp Pulse Resp BP Pulse Ox 98.0 F 88 18 157/75 98 10/28/16 07:06 10/28/16 07:06 10/28/16 08:09 10/28/16 07:06 10/28/16 08:09 General appearance: Present: A&O X 2, no acute distress, underweight, answers questions appropriately - Respiratory Respiratory exam: Present: CTAB. Absent: accessory muscle use, rales, rhonchi, wheezes - Cardiovascular Cardiovascular exam: Present: RRR, +S1, +S2. Absent: diastolic murmur, gallop, rubs, systolic murmur - Extremities Exam Extremities exam: Present: tenderness (right ankle), warm, radial pulses palpable and symmetrical. Absent: calf tenderness, cyanotic, pedal edema - VTE Documentation of Mechanical Device: Venous foot pump, device
[2016-10-28] MEDS: Pantoprazole 40 MG VIAL IVP SCH (09:03)
[2016-10-28] MEDS: Nicotine 21 MG PATCH.TD24 TD SCH (09:03)
--- NOTE | 2016-10-28 09:05 | Physician Discharge Referral ---
ExtendedCare Referral Info Provider in Charge after Transfer: PCP Institutional Level of Care: Skilled - Diagnosis (1) Fracture of right tibia Priority: Primary Status: Acute (2) Acute hyperkalemia Priority: Secondary Status: Resolved (3) COPD (chronic obstructive pulmonary disease) Priority: Secondary Status: Chronic (4) DVT prophylaxis Priority: Secondary Status: Acute (5) HLD (hyperlipidemia) Priority: Secondary Status: Chronic (6) HTN (hypertension) Priority: Secondary Status: Chronic (7) Leukocytosis Priority: Secondary Status: Resolved (8) Malnutrition of moderate degree Priority: Secondary Status: Chronic (9) Osteopenia Priority: Secondary Status: Chronic Prognosis: Fair Aware of Diagnosis: Patient Aware of Prognosis: Patient - Transfer Medications Prescriptions: HYDROcodone/Acet 5/325 mg [[place] 5-325 mg] 1 tab PO Q6HR PRN #14 tab PRN Reason: Moderate Pain (4-6) Aspirin [Lo-Dose Aspirin EC] 324 mg PO DAILY 30 Days Tramadol HCl [Ultram] 50 mg PO QID PRN #20 PRN Reason: Pain Home Medications: Aclidinium [place] [Tudorza Pressair] 1 puff IH BID 10/26/16 [History] Albuterol Sulfate [Ventolin Hfa] 2 puff IH Q4-6H PRN 10/26/16 [History] Alendronate Sodium [Fosamax] 70 mg PO QWEEK 10/26/16 [History] Benztropine [Cogentin] 1 mg PO HS 10/26/16 [History] Calcium Carbonate/Vitamin D2 [Ra Oyster Shell-Vitamin D Tab] 1 tab PO DAILY [History] Fluticasone/Salmeterol [Advair 250-50 Diskus] 1 puff IH BID 10/26/16 [History] Haloperidol Decanoate [Haldol] 50 mg IM QMONTH 10/26/16 [History] Lisinopril [Zestril] 5 mg PO DAILY 10/26/16 [History] Acetaminophen [Tylenol] 650 mg PO Q6HR PRN #0 tab 10/28/16 [Rx] Aspirin [Lo-Dose Aspirin EC] 324 mg PO DAILY 30 Days 10/28/16 [Rx] HYDROcodone/Acet 5/325 mg [[place] 5-325 mg] 1 tab PO Q6HR PRN #14 tab 10/28/16 [ Rx] Potassium Chloride [Klor-Con 10] 10 meq PO DAILY #30 10/28/16 [Rx] Tramadol HCl [Ultram] 50 mg PO QID PRN #20 10/28/16 [Rx] Allergies/Adverse Reactions: 3 Allergy/AdvReac Type Severity Reaction Status Date / Time No Known Allergies Allergy Verified 06/17/15 17:44 - Respiratory Orders Smoking Cessation: Smoking cessation has been advised. For more information, call the [place] Tobacco Quit Line at 5-653-JGEE-NOW. - Ancillary Orders May consult with Dentist, Car Dryer, Stockroom Associate PRN - Advance Directives Code Status: Full Code - Mobility Orders Ambulate (per PT) - Rehabiliation Orders Rehab Potential: Fair Rehab Orders: Evaluation for Physical Therapy, Evaluation for Occupational Therapy - Diet Orders Cardiac CERTIFICATION: I certify that the transfer of the above named patient to an Extended Care Facility is necessary for the continuing treatment of the diagnosis listed. The above information is true and accurate reflection of patient's current condition. Confidential - Redisclosure prohibited without a patient's written consent.
[2016-10-28 11:45] VITALS: BP 178/83
== END 2016-10-28 12:53 | DRG 563 ==
LOC: 3NENU 14:13 → EMEROO 14:13 → 3NENU 17:51
PROVIDERS: ADMIT Nurse Practitioner Family; ATTEND Internal Medicine

== ENCOUNTER 2017-01-13 08:26 | Inpatient (IN) ==
--- NOTE | 2017-01-13 09:04 | Emergency Department Note ---
Disposition Clinical Impression: Fall Qualifiers: Encounter type: initial encounter Qualified Code(s): W19.XXXA - Unspecified fall, initial encounter C2 cervical fracture Qualifiers: Encounter type: initial encounter Fracture type: closed Fracture morphology: other fracture Fracture alignment: displaced Qualified Code(s): S12.190A - Other displaced fracture of second cervical vertebra, initial encounter for closed fracture Malnutrition Qualifiers: Malnutrition type: protein-calorie malnutrition Protein-calorie malnutrition severity: severe Qualified Code(s): E43 - Unspecified severe protein-calorie malnutrition Disposition: Admitted As Inpatient Time of Disposition: 11:31 Fall HPI - General Chief Complaint: ED Fall Stated Complaint: fall Time Seen by Provider: 01/13/17 08:33 Nursing Notes Reviewed: Yes Vital Signs Reviewed: Yes - History of Present Illness HPI Narrative: Mrs. Choi, a 71yo female, presents from home for evaluation of fall. She rolled out of bed and hit her head. She also has continuing RLE pain from her prior fall; unchanged after todays fall. Patient is a poor historian; she is unable to answer basic questions consistently. Example: She states she has not seen an orthopedic surgeon for her right lower extremity. I reminded her she had an appointment scheduled Tuesday. She then said she did see the orthopedic surgeon. She does not know the decision from that appointment. Patient is unable to inform you of her past medical history; she generally denies everything. PMH (chart check): COPD, hypertension, hyperlipidemia, osteopenia - Related Data Home Medications Medication Instructions Recorded Confirmed Aclidinium [place] [Tudorza 1 puff IH BID 10/26/16 01/13/17 [place]air] Albuterol Sulfate [Ventolin Hfa] 2 puff IH Q4-6H PRN 10/26/16 01/13/17 Alendronate Sodium [Fosamax] 70 mg PO QWEEK 10/26/16 01/13/17 Benztropine [Cogentin] 1 mg PO HS 10/26/16 01/13/17 Calcium Carbonate/Vitamin D2 [Ra 1 tab PO DAILY 10/26/16 01/13/17 Oyster Shell-Vitamin D Tab] Fluticasone/Salmeterol [Advair 1 puff IH BID 10/26/16 01/13/17 250-50 Diskus] Haloperidol Decanoate [Haldol] 50 mg IM QMONTH 10/26/16 01/13/17 Lisinopril [Zestril] 5 mg PO DAILY 10/26/16 01/13/17 Omeprazole [PriLOSEC] 20 mg PO DAILY 01/13/17 01/13/17 Previous Rx's Medication Instructions Recorded Acetaminophen [Tylenol] 650 mg PO Q6HR PRN #0 tab 10/28/16 Aspirin [Lo-Dose Aspirin EC] 324 mg PO DAILY 30 Days tablet. 10/28/16 Potassium Chloride [Klor-Con 10] 10 meq PO DAILY #30 10/28/16 Tramadol HCl [Ultram] 50 mg PO QID PRN #20 10/28/16 HYDROcodone/Acet 5/325 mg [[place] 1 tab PO Q6H PRN #12 tab 01/02/17 5-325 mg] Allergies Allergy/AdvReac Type Severity Reaction Status Date / Time No Known Allergies Allergy Verified 01/13/17 08:27 All systems ED: reviewed and negative except as stated. Fall PMH - Past Medical History Medical history: Reports: COPD, hyperlipidemia, hypertension Surgical history: Reports: hysterectomy (Total), other Psychiatric history: Reports: no psych history - Social History Smoking Status: Current every day smoker Alcohol use: Reports: none Drug use: Reports: none Physical Exam Vital Signs Reviewed General: Patient is alert, oriented to self, location, situation. In no acute distress. HEENT: No facial asymmetry. Head is normocephalic. Ecchymosis surrounding left orbit. Superficial abrasion above left brow. PERRLA, EOMI. oral mucosa tacky. Trachea midline. Cardiovascular: Heart regular rate and rhythm without clicks, rubs, gallops, or murmurs. No JVD. PMI nondisplaced. No pedal edema. Bilateral radial and left posterior tibial pulses 2/4 and equal. Respiratory: Symmetric chest rise with poor respiratory effort. Bilateral breath sounds are clear without wheezing, crackles, or rhonchi. Abdomen: Scaphoid. Bowel sounds present normoactive. Abdomen is soft, nondistended, and nontender. No organomegaly noted. Musculoskeletal: Patient is spontaneously moving all extremities. Right lower extremity in splint which was placed Tuesday. Right toes exposed, pink, warm, dry. Neuro: Cranial nerves II through XII without deficit. Sensation light touch intact. Psych: Patient's affect is appropriate for situation. Course Course Narrative: In reviewing patient's chart from Tuesday, she had an appointment scheduled with orthopedics Tuesday at 10 AM. There is no documented encounter from that appointment inferring the patient did not present orthopedics for next a follow- up. Nursing spoke with the sister who is LEYDA. Patient was in skilled nursing for 50 days for unknown reason, has been home for 2 weeks. Slides herself out of bed; this caused the fall Tuesday and today. Sister refuses to come out to the hospital at this time. The left eye ecchymosis is new. Patient appears confused; she does not remember much of her medical history it is uncertain as to whether she presented to the appointment with [facility] on Tuesday. Her answers in general are , "no" or "I do not know". CT head and facial bones is negative for acute fracture or intracranial pathology. CT cervical spine shows a small chip fracture in the anterior inferior aspect of C2 vertebral body. I discussed this finding with spinal surgeon, Dr. Mcrae , who advises no surgical intervention and no need for any bracing at this time. Repeat x-ray of the patient's right tib-fib and knee show no change in fracture from her previous fall Tuesday. I discussed the patient with on-call orthopedics , Dr. Mckinley, who will see the patient with admission to medicine. 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 Patient has multiple resources available to her however appears to be malnourished, cachectic, and she has missed her outpatient orthopedic follow-up appointment. I discussed the patient with the admitting physician, Dr. Stapleton, who agrees to accept the patient for continued evaluation and management. Vital Signs Pulse Rate 101 01/13/17 08:37 Respiratory Rate 16 01/13/17 08:37 Blood Pressure 110/67 01/13/17 08:37 O2 Sat by Pulse Oximetry 99 01/13/17 08:37 Temperature 97.5 F L 01/14/17 10:27 Pulse Rate 84 01/14/17 10:27 Respiratory Rate 16 01/14/17 10:27 Blood Pressure 138/78 01/14/17 10:27 O2 Sat by Pulse Oximetry 94 01/14/17 10:27 Oxygen Delivery Oxygen Delivery Room Air Procedures - Orthopedic Splinting/Casting Injury #1 Side: right Lower Extremity Injury Location: lower leg Additional Comments: Custom Ortho-Glass long leg posterior splint with sugar tong placed on the right side by ski technician Fall - Medical Records Medical records reviewed: Yes I reviewed the patient's medical records. - Lab Data Lab results reviewed: Yes I reviewed the patient's lab results. Result diagrams: 01/14/17 05:15 01/14/17 05:15 Lab Results 01/13/17 01/13/17 01/13/17 Range/Units 09:08 10:03 10:03 WBC 10.5 (4.3-11.1) K/mcL RBC 4.48 (3.82-4.97) M/mcL Hgb 12.3 (11.5-15.4) g/dL Hct 38.5 (35.3-44.9) % MCV 85.9 (83.0-100.0) fL MCH 27.5 L (28.0-33.3) pg MCHC 31.9 (31.6-35.5) g/dL RDW 13.8 (11.5-14.5) % Plt Count 503 H (140-400) K/mcL MPV 8.3 L (9.4-12.4) fL Immature Gran % 0.4 (0-4) % Seg Neutrophils % 67.4 % Lymphocytes % 23.3 % Monocytes % 7.6 % Eosinophils % 1.0 % Basophils % 0.3 % Neutrophils # 7.1 (1.6-8.9) K/mcL Lymphocytes # 2.5 (0.6-4.6) K/mcL Monocytes # 0.8 (0.0-1.3) K/mcL Eosinophils # 0.1 (0.0-0.6) K/mcL Basophils # 0.0 (0.0-0.2) K/mcL Immature Plt Fraction 1.1 (1.1-6.1) % PT (9.4-12.1) Seconds INR Sodium 135 L (136-145) mEq/L Potassium 4.3 (3.5-4.5) mEq/L Chloride 100 (98-109) mEq/L Carbon Dioxide 26 (19-29) mEq/L BUN 18 (7-20) mg/dL Creatinine 0.59 (0.57-1.11) mg/dL Est GFR ( Amer) > 60 (> 60) Est GFR (Non-Af Amer) > 60 (> 60) BUN/Creatinine Ratio 31 H (6-26) Glucose 105 H (70-99) mg/dL POC Glucose 91 H (58-89) Calculated Osmolality 282 (280-300) Lactic Acid (0.5-2.2) mmol/L Calcium 9.0 (8.6-10.8) mg/dL 01/13/17 01/13/17 Range/Units 10:03 10:03 WBC (4.3-11.1) K/mcL RBC (3.82-4.97) M/mcL Hgb (11.5-15.4) g/dL Hct (35.3-44.9) % MCV (83.0-100.0) fL MCH (28.0-33.3) pg MCHC (31.6-35.5) g/dL RDW (11.5-14.5) % Plt Count (140-400) K/mcL MPV (9.4-12.4) fL Immature Gran % (0-4) % Seg Neutrophils % % Lymphocytes % % Monocytes % % Eosinophils % % Basophils % % Neutrophils # (1.6-8.9) K/mcL Lymphocytes # (0.6-4.6) K/mcL Monocytes # (0.0-1.3) K/mcL Eosinophils # (0.0-0.6) K/mcL Basophils # (0.0-0.2) K/mcL Immature Plt Fraction (1.1-6.1) % PT 12.5 H (9.4-12.1) Seconds INR 1.2 Sodium (136-145) mEq/L Potassium (3.5-4.5) mEq/L Chloride (98-109) mEq/L Carbon Dioxide (19-29) mEq/L BUN (7-20) mg/dL Creatinine (0.57-1.11) mg/dL Est GFR ( Amer) (> 60) Est GFR (Non-Af Amer) (> 60) BUN/Creatinine Ratio (6-26) Glucose (70-99) mg/dL POC Glucose (58-89) Calculated Osmolality (280-300) Lactic Acid 1.1 (0.5-2.2) mmol/L Calcium (8.6-10.8) mg/dL - Radiology Data Radiology results reviewed: Yes I reviewed the patient's radiology results. Chest X-Ray 01/13/17 09:02 IMPRESSION: No acute cardiopulmonary process. Severe emphysematous changes are similar to prior. D/ / 01/13/2017 09:43:47 Vishal Walton MD / Betsy Silverio Interpreting Provider: Vishal Walton MD Head CT 01/13/17 09:02 IMPRESSION: Left forehead scalp subcutaneous soft tissue swelling extending to the left periorbital region. No acute intracranial abnormality. Mild parenchymal volume loss. Mild chronic microvascular disease. D/ / Jose Machuca MD / Jose Machuca MD Interpreting Provider: Jose Machuca MD Cervical Spine CT 01/13/17 09:17 IMPRESSION: Small fracture of C2 as discussed. New right upper lobe pulmonary nodule in a patient with smoking history/emphysema. Recommend further evaluation with a CT of the chest the D/ / Tommy Nobles MD / Tommy Nobles MD Interpreting Provider: Tommy Nobles MD Face CT 01/13/17 09:17 IMPRESSION: No acute traumatic injury of the facial bones. Please refer to CT imaging of the cervical spine for assessment of the anterior inferior margin C2 fracture. D/ / 01/13/2017 11:14:46 Stu Johnson MD / bcapedro Interpreting Provider: Stu Johnson MD Knee X-Ray 01/13/17 09:18 IMPRESSION: Studies of the right knee and right tibia/fibula demonstrate no acute abnormalities. Stable alignment to subacute appearing nondisplaced fractures of the distal femoral metadiaphysis, proximal fibular metadiaphysis and distal tibial metadiaphysis from prior right tibia/fibula x-rays 01/02/2017. Diffuse bone demineralization. D/ /13/2017 09:54:35 El Cartagena MD / martinez Interpreting Provider: El Cartagena MD Tibia/Fibula X-Ray 01/13/17 09:18 IMPRESSION: Studies of the right knee and right tibia/fibula demonstrate no acute abnormalities. Stable alignment to subacute appearing nondisplaced fractures of the distal femoral metadiaphysis, proximal fibular metadiaphysis and distal tibial metadiaphysis from prior right tibia/fibula x-rays 01/02/2017. Diffuse bone demineralization. D/ /13/2017 09:54:35 El Cartagena MD / martinez Interpreting Provider: El Cartagena MD - EKG Data EKG attestation: Yes I reviewed and interpreted this EKG. EKG results narrative: EKG dated 13 January 2017 at 11:40 and interpreted as sinus rhythm with a rate of 99. Short [place] interval 106. Otherwise normal intervals of QRS 65, QT/QTC 313 /370. Normal axis. Nonspecific ST-T changes. No previous EKG for comparison. Attestation Statement - Attestation Attestation: I examined this patient and my medical decision-making was reviewed with the Resident Physician. I agree with the documented findings, disposition and treatment plan as described except to the extent set forth below. Patient to ED after fall. Patient was started on the floor apparently rolled out of bed. Patient lives a home with a friend. She has home health services who apparently have not been coming. She was seen at the end of December for a fall. She was diagnosed with a tib-fib fracture at that time. She is yet to follow up with orthopedics. On examination she is awake alert. Confused. She has a splint to her lower right leg. Lungs clear. She is in no acute distress. Plan. The patient definitely was social concerns. She had another fall. We will image her head and neck and face. We will reimage her leg. We will replace splint. Will discuss with orthopedics. Likely admission as patient is unsafe for discharge home. Patient with fracture of her C2. She has been discussed with spine. Orthopaedics aware of the tib-fib fractures. We will see in consult. Admit to medicine.
[2017-01-13 10:09] LABS: Basophils % 0.3 %; Eosinophils # 0.1 K/mcL (0.0-0.6); Hematocrit 38.5 % (35.3-44.9); Hemoglobin 12.3 g/dL (11.5-15.4); Immature Granulocytes % 0.4 % (0-4); Immature Platelets 1.1 % (1.1-6.1); Lymphocytes # 2.5 K/mcL (0.6-4.6); Lymphocytes % 23.3 %; Mean Corpuscular HGB Conc 31.9 g/dL (31.6-35.5); Mean Corpuscular Hemoglobin 27.5 pg (28.0-33.3); Mean Corpuscular Volume 85.9 fL (83.0-100.0); Mean Platelet Volume 8.3 fL (9.4-12.4); Monocytes # 0.8 K/mcL (0.0-1.3); Monocytes % 7.6 %; Neutrophils # 7.1 K/mcL (1.6-8.9); Platelet Count 503 K/mcL (140-400); Red Blood Count 4.48 M/mcL (3.82-4.97); Red Cell Distribution Width 13.8 % (11.5-14.5); Segmented Neutrophils % 67.4 %
[2017-01-13 10:13] LABS: INR 1.2; Prothrombin Time 12.5 Seconds (9.4-12.1)
[2017-01-13 10:20] LABS: BUN/Creatinine Ratio 31 (6-26); Blood Urea Nitrogen 18 mg/dL (7-20); Carbon Dioxide 26 mEq/L (19-29); Chloride 100 mEq/L (98-109); Glucose 105 mg/dL (70-99); Osmolality,Calculated 282 (280-300); Potassium 4.3 mEq/L (3.5-4.5); Sodium 135 mEq/L (136-145); eGFR For African Americans > 60 (> 60); eGFR For Non-African Americans > 60 (> 60)
[2017-01-13] MEDS ORDERED: Naloxone 0.4 MG/ML INJ IVP PRN (14:35)
[2017-01-13] MEDS ORDERED: Acetaminophen 325 MG TABLET PO PRN (14:35)
[2017-01-13] MEDS ORDERED: Ondansetron ODT 4 MG TAB.RAPDIS SL PRN (14:35)
[2017-01-13] MEDS ORDERED: *HR* HYDROcodone/Acet 5/325 mg TABLET PO PRN (14:42)
[2017-01-13] MEDS ORDERED: 0.9 % Sodium Chloride 1,000 ML IVC SCH (14:45)
--- NOTE | 2017-01-13 14:46 | Internal Med History&Physical ---
<Kat Powell - Last Filed: 01/13/17 18:49> Date of Encounter: 01/13/17 Time of Encounter: 13:00 Assessment and Plan (1) C2 cervical fracture Current visit: Yes Status: Acute The patient sustained C2 fracture from a fall. ER physician did speak with Dr. Mcrae who advised no surgical intervention at this time as well as no splinting needed. Patient does have a soft collar which we will continue Fall precautions Qualifiers: Encounter type: initial encounter Fracture type: closed Fracture morphology: other fracture Fracture alignment: displaced Qualified Code(s): S12.190A - Other displaced fracture of second cervical vertebra, initial encounter for closed fracture (2) Fall Current visit: Yes Status: Acute 1 patient is high risk for falls she has had multiple falls in the past few weeks she sustained a tib-fib fracture as well as C2 fracture. We will continue fall precautions 2 consult PT and OT 3 did consult transition social worker for possible ECF placement-due to safety issues at home-patient lives alone and is immobile Qualifiers: Encounter type: initial encounter Qualified Code(s): W19.XXXA - Unspecified fall, initial encounter (3) Malnutrition Current visit: Yes Status: Chronic 1 patient is presently 32 kg, family reports that she consumes approximately 3 cans of ensure daily despite receiving Meals on Wheels, family does bring her some food 2 we will consult dietary 3 we will give IV fluids Qualifiers: Malnutrition type: protein-calorie malnutrition Protein-calorie malnutrition severity: severe Qualified Code(s): E43 - Unspecified severe protein-calorie malnutrition (4) DVT prophylaxis Current visit: No Status: Acute lovenox subcutaneous (5) Fracture of right tibia Current visit: No Status: Acute 1 orthopedics has been consulted will keep patient nothing by mouth for now until orthopedics sees patient in case they are preparing take to surgery Qualifiers: Encounter type: initial encounter Tibia location: distal Fracture type: closed Fracture morphology: unspecified fracture morphology Qualified Code(s ): S82.301A - Unspecified fracture of lower end of right tibia, initial encounter for closed fracture (6) COPD (chronic obstructive pulmonary disease) Current visit: No Status: Chronic Continue with bronchodilators as well as oxygen Qualifiers: COPD type: unspecified COPD Qualified Code(s): J44.9 - Chronic obstructive pulmonary disease, unspecified (7) HTN (hypertension) Current visit: No Status: Chronic 1 presently stable we will hold lisinopril for now Qualifiers: Hypertension type: essential hypertension Qualified Code(s): I10 - Essential (primary) hypertension (8) Schizophrenia Current visit: Yes Status: Acute 1 presently stable we will continue with home medications Qualifiers: Schizophrenia type: unspecified Qualified Code(s): F20.9 - Schizophrenia, unspecified Internal Medicine - H&P: HPI Chief complaint: fall Admitted From: Emergency Dept Plans for Post Hospital Care: Home History of present illness: Ms. Choi is a 71 year old female past medical history of COPD hypertension hyperlipidemia schizophrenia, Alzheimer's dementia. Information obtained from POA who is at bedside as well as medical records due to patient's cognitive state. Upon review of medical records it appears the patient had a fall was seen in this emergency department diagnosed with fracture of proximal end of right fibula fracture distal end of right tibia. She was to follow-up with Dr. Bae when orthopedics on 01/03/2017 however did not. The patient also had a admission to residential for 50 days, during that time the patient fell 4 times within a residential. The patient was discharged and has been home for 2 weeks and has fallen at least 3-4 times according to her sister who is at bedside. According to the sister the patient is not ambulatory due to a previous hip fracture and that she utilizes a wheelchair at home. The patient lives by herself in transfers herself into the wheelchair. She does have home health and her son who lives in apartment in front of her gives her her medications. She also receives Meals on Wheels however she does not have any appetite and mainly consumes 3 cans of ensure daily. On questioning POA concerning why patient did not go to follow-up appointment she said she does not know when she was not aware of the appointment. Today the patient was attempting to transfer herself out of bed into her wheelchair when she fell. Apparently this is what happened on Tuesday when she sustained a tib-fib fracture. Today she struck her head and was brought to the ER for evaluation. Patient does have ecchymosis to left eye CT of head was obtained which was negative for any intracranial abnormalities to CT cervical spine showed small chip fracture in the anterior inferior aspect of C2 vertebral body. This finding was discussed with Dr. Mcrae per ER physician who advised no surgical intervention and no need for bracing at that time. Repeat x-ray of right tib- fib and knee shows no change in fracture for previous fall. Orthopedics was consulted who will see patient, with admission to medicine. Patient has been admitted for further workup and evaluation. Presently the patient appears very cachectic she is disheveled with feces on her hands. She is oriented to name only has some difficulty following commands. Power of technical sales advisor does admit that the patient has episodes of hallucinations however she has not had any since being discharged from the [facility]. ER physician has consulted transition social worker in the emergency department concerning the patient's malnourished state as well as home safety. Past Med Surg Social Fam HX - Past Medical History Medical history: COPD, hyperlipidemia, hypertension Psychiatric history: no psych history - Past Surgical History Surgical History: hysterectomy, other - Social History Smoking Status: Current every day smoker Smokeless Tobacco Status: No Alcohol use: none Drug use: none - Family History Brother History Unknown: Yes Family Member Ethnicity: Non- Living Status: Still Living Sister History Unknown: Yes Family Member Ethnicity: Non- Living Status: Still Living Mother History Unknown: Yes Family Member Ethnicity: Non- Living Status: Hx Family Cardiac Disorders: Yes (HD) Hx Family Respiratory Disorders: No Hx Family Cancer: Yes Hx Family GI Disorders: No Hx Family Endocrine Disorder: No Hx Family Neuromuscular Disorders: No Hx Family Neurologic Disorders: No Hx Family HEENT Disorders: No Hx Family Autoimmune Disorders: No Father History Unknown: Yes Family Member Ethnicity: Non- Living Status: Internal Medicine - H&P: Meds Aclidinium [place] [Tudorza Pressair] 1 puff IH BID 10/26/16 [History] Albuterol Sulfate [Ventolin Hfa] 2 puff IH Q4-6H PRN 10/26/16 [History] Alendronate Sodium [Fosamax] 70 mg PO QWEEK 10/26/16 [History] Benztropine [Cogentin] 1 mg PO HS 10/26/16 [History] Calcium Carbonate/Vitamin D2 [Ra Oyster Shell-Vitamin D Tab] 1 tab PO DAILY [History] Fluticasone/Salmeterol [Advair 250-50 Diskus] 1 puff IH BID 10/26/16 [History] Haloperidol Decanoate [Haldol] 50 mg IM QMONTH 10/26/16 [History] Lisinopril [Zestril] 5 mg PO DAILY 10/26/16 [History] Acetaminophen [Tylenol] 650 mg PO Q6HR PRN #0 tab 10/28/16 [Rx] Aspirin [Lo-Dose Aspirin EC] 324 mg PO DAILY 30 Days tablet. 10/28/16 [Rx] Potassium Chloride [Klor-Con 10] 10 meq PO DAILY #30 10/28/16 [Rx] Tramadol HCl [Ultram] 50 mg PO QID PRN #20 10/28/16 [Rx] HYDROcodone/Acet 5/325 mg [[place] 5-325 mg] 1 tab PO Q6H PRN #12 tab 01/02/17 [Rx ] Omeprazole [PriLOSEC] 20 mg PO DAILY 01/13/17 [History] 3 Allergy/AdvReac Type Severity Reaction Status Date / Time No Known Allergies Allergy Verified 01/13/17 08:27 ROS unobtainable: due to mental status All Systems PM: A 10-system review of systems was performed and is negative for pertinent findings except as documented above in the HPI. - Constitutional Vitals: Temp Pulse Resp BP Pulse Ox 97.3 F L 91 21 130/77 98 01/13/17 13:56 01/13/17 13:56 01/13/17 13:56 01/13/17 13:56 01/13/17 13:56 General appearance: Present: cachectic, A&O X 1 - Head Head exam: Present: atraumatic, normocephalic - Eye Eye exam: Present: PERRL, conjuntiva pink, sclera anicteric Pupils: Present: PERRL - Neck Neck exam general surgery: Present: supple, trachea midline. Absent: lymphadenopathy - Respiratory Respiratory exam: Present: CTAB. Absent: accessory muscle use, rales, rhonchi, wheezes - Cardiovascular Cardiovascular exam: Present: RRR, +S1, +S2. Absent: diastolic murmur, gallop, rubs, systolic murmur - GI/Abdominal GI/Abdominal exam: Present: normal bowel sounds, soft, no peritoneal signs. Absent: distended, tenderness - Extremities Exam Extremities exam: Present: warm, radial pulses palpable and symmetrical. Absent : calf tenderness, cyanotic, pedal edema - Neurological Exam Neurological exam: Present: CN II-XII intact, no focal deficits. Absent: pronater drift, facial droop, speech deficit - Skin Skin exam: Present: dry, intact Internal Med - H&P Results - Labs CBC & Chem 7: 01/13/17 10:03 01/13/17 10:03 - Diagnostic Studies Other Images Additional comments: Chest X-Ray 01/13/17 09:02 IMPRESSION: No acute cardiopulmonary process. Severe emphysematous changes are similar to prior. D/ / 01/13/2017 09:43:47 Vishal Walton MD / Betsy Silverio Interpreting Provider: Vishal Walton MD Head CT 01/13/17 09:02 IMPRESSION: Left forehead scalp subcutaneous soft tissue swelling extending to the left periorbital region. No acute intracranial abnormality. Mild parenchymal volume loss. Mild chronic microvascular disease. D/ / Jose Machuca MD / Jose Machuca MD Interpreting Provider: Jose Machuca MD Cervical Spine CT 01/13/17 09:17 IMPRESSION: Small fracture of C2 as discussed. New right upper lobe pulmonary nodule in a patient with smoking history/emphysema. Recommend further evaluation with a CT of the chest the D/ / Tommy Nobles MD / Tommy Nobles MD Interpreting Provider: Tommy Nobles MD Face CT 01/13/17 09:17 IMPRESSION: No acute traumatic injury of the facial bones. Please refer to CT imaging of the cervical spine for assessment of the anterior inferior margin C2 fracture. D/ / 01/13/2017 11:14:46 Stu Johnson MD / shubham Interpreting Provider: Stu Johnson MD Knee X-Ray 01/13/17 09:18 IMPRESSION: Studies of the right knee and right tibia/fibula demonstrate no acute abnormalities. Stable alignment to subacute appearing nondisplaced fractures of the distal femoral metadiaphysis, proximal fibular metadiaphysis and distal tibial metadiaphysis from prior right tibia/fibula x-rays 01/02/2017. Diffuse bone demineralization. D/ /13/2017 09:54:35 El Cartagena MD / martinez Interpreting Provider: El Cartagena MD Tibia/Fibula X-Ray 01/13/17 09:18 IMPRESSION: Studies of the right knee and right tibia/fibula demonstrate no acute abnormalities. Stable alignment to subacute appearing nondisplaced fractures of the distal femoral metadiaphysis, proximal fibular metadiaphysis and distal tibial metadiaphysis from prior right tibia/fibula x-rays 01/02/2017. Diffuse bone demineralization. D/ : / 01/13/2017 09:54:35 El Cartagena MD / martinez Interpreting Provider: El Cartagena MD <Mikal Stapleton P - Last Filed: 01/17/17 14:02> Date of Encounter: 01/17/17 Internal Medicine - H&P: HPI History of present illness: Ms. Choi is a 71 year old female All Systems PM: A 10-system review of systems was performed and is negative for pertinent findings except as documented above in the HPI. - Constitutional Vitals: Temp Pulse Resp BP Pulse Ox 98.1 F 86 15 138/84 97 01/17/17 11:00 01/17/17 11:00 01/17/17 11:00 01/17/17 11:00 01/17/17 11:00 Internal Med - H&P Results - Labs CBC & Chem 7: 01/17/17 05:19 01/14/17 05:15 Labs: Short CBC 01/17/17 Range/Units 05:19 WBC 5.8 (4.3-11.1) K/mcL Hgb 10.2 L (11.5-15.4) g/dL Hct 31.1 L (35.3-44.9) % Plt Count 331 (140-400) K/mcL Neutrophils # 3.5 (1.6-8.9) K/mcL - Impressions ITS Impressions Chest CT 01/14/17 12:30 IMPRESSION: The area of nodularity in the right apex seen on neck CT is elongated and likely related to scar. There does appear to be a more spiculated appearing area inferiorly. Although this is likely related to scarring, given the patient's history of emphysema follow-up recommended with dedicated chest CT in 3 months. D/ / Tabatha Hurley MD / Tabatha Hurley MD Interpreting Provider: Tabatha Hurley MD - Attending Attestation I examined this patient and my medical decision-making was reviewed with the Resident Physician/ROOM CLEANER. I agree with the documented findings, disposition and treatment plan as described except to the extent set forth below.
[2017-01-13] MEDS: 0.9 % Sodium Chloride 1,000 ML IVC SCH (18:07)
--- NOTE | 2017-01-13 18:31 | Electrocardiograph Report ---
[place] [id number] Test Date: 2017-01-13 Pat Name: Lauren Choi Department: 103 Room: 3A52 Gender: F Division Order Technician: : 1945 Requested By: Monty Sharp Order Number: [id number] Reading MD: Lindsey Conn Measurements Intervals [place] Rate: 99 P: 84 DE: 106 QRS: 88 QRSD: 65 T: 83 QT: 313 QTc: 370 Interpretive Statements SINUS RHYTHM WITH SHORT DE INTERVAL POSSIBLE RIGHT ATRIAL ENLARGEMENT [0.25mV P WAVE] Electronically Signed On 01-13-2017 18:30:12 EST by Lindsey Conn
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
[2017-01-13] MEDS: Budesonide/Formoterol 80/4.5 MDI IH SCH (20:16)
[2017-01-13] MEDS: (Aclidinium Bromide [Tudorza Pressair] 1 PUFF) IH SCH (21:23)
[2017-01-14] MEDS: 0.9 % Sodium Chloride 1,000 ML IVC SCH ×2 (03:45→13:28)
[2017-01-14 05:25] LABS: Basophils % 0.3 %; Eosinophils # 0.1 K/mcL (0.0-0.6); Eosinophils % 1.3 %; Hematocrit 33.1 % (35.3-44.9); Immature Granulocytes % 0.3 % (0-4); Lymphocytes % 25.9 %; Mean Corpuscular HGB Conc 31.7 g/dL (31.6-35.5); Mean Corpuscular Hemoglobin 27.4 pg (28.0-33.3); Mean Corpuscular Volume 86.4 fL (83.0-100.0); Mean Platelet Volume 8.4 fL (9.4-12.4); Monocytes # 0.6 K/mcL (0.0-1.3); Monocytes % 7.4 %; Neutrophils # 4.9 K/mcL (1.6-8.9); Platelet Count 365 K/mcL (140-400); Red Blood Count 3.83 M/mcL (3.82-4.97); Red Cell Distribution Width 13.8 % (11.5-14.5); Segmented Neutrophils % 64.8 %
[2017-01-14 05:32] LABS: Hemoglobin 10.5 g/dL (11.5-15.4)
[2017-01-14] MEDS: *HR* Enoxaparin 40 MG/0.4 ML SYRINGE SQ SCH (05:43)
[2017-01-14 05:54] LABS: BUN/Creatinine Ratio 30 (6-26); Blood Urea Nitrogen 16 mg/dL (7-20); Calcium 7.7 mg/dL (8.6-10.8); Carbon Dioxide 26 mEq/L (19-29); Chloride 107 mEq/L (98-109); Glucose 109 mg/dL (70-99); Magnesium 1.6 mg/dL (1.6-2.6); Osmolality,Calculated 288 (280-300); Potassium 3.5 mEq/L (3.5-4.5); Sodium 138 mEq/L (136-145); eGFR For African Americans > 60 (> 60); eGFR For Non-African Americans > 60 (> 60)
[2017-01-14] MEDS: Budesonide/Formoterol 80/4.5 MDI IH SCH ×2 (08:21→21:55)
[2017-01-14] MEDS: Aspirin Enteric Coated 325 MG Tablet PO SCH (09:17)
[2017-01-14] MEDS: (Aclidinium Bromide [Tudorza Pressair] 1 PUFF) IH SCH (09:19)
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
[2017-01-14] MEDS: Nicotine 7 MG PATCH.TD24 TD SCH (13:27)
[2017-01-15] MEDS: (Aclidinium Bromide [Tudorza Pressair] 1 PUFF) IH SCH ×2 (00:16→10:15)
[2017-01-15] MEDS: *HR* Enoxaparin 40 MG/0.4 ML SYRINGE SQ SCH (05:42)
[2017-01-15 06:21] LABS: Basophils % 0.3 %; Eosinophils # 0.2 K/mcL (0.0-0.6); Hematocrit 31.2 % (35.3-44.9); Hemoglobin 10.1 g/dL (11.5-15.4); Immature Granulocytes % 0.3 % (0-4); Lymphocytes # 2.2 K/mcL (0.6-4.6); Lymphocytes % 29.4 %; Mean Corpuscular HGB Conc 32.4 g/dL (31.6-35.5); Mean Corpuscular Hemoglobin 27.3 pg (28.0-33.3); Mean Corpuscular Volume 84.3 fL (83.0-100.0); Mean Platelet Volume 8.4 fL (9.4-12.4); Monocytes # 0.6 K/mcL (0.0-1.3); Monocytes % 8.1 %; Neutrophils # 4.5 K/mcL (1.6-8.9); Platelet Count 355 K/mcL (140-400); Red Cell Distribution Width 13.7 % (11.5-14.5); Segmented Neutrophils % 59.9 %
[2017-01-15] MEDS: Budesonide/Formoterol 80/4.5 MDI IH SCH ×2 (07:46→20:16)
[2017-01-15] MEDS: Nicotine 7 MG PATCH.TD24 TD SCH (10:01)
[2017-01-15] MEDS: Aspirin Enteric Coated 325 MG Tablet PO SCH (10:01)
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
[2017-01-15] MEDS: cefTRIAXone 1,000 MG in Water for inj. (sterile) 10 ML IVPB SCH (12:40)
[2017-01-16] MEDS: (Aclidinium Bromide [Tudorza Pressair] 1 PUFF) IH SCH ×3 (04:37→21:03)
[2017-01-16 05:19] LABS: Basophils % 0.2 %; Eosinophils # 0.1 K/mcL (0.0-0.6); Eosinophils % 1.2 %; Hematocrit 30.6 % (35.3-44.9); Hemoglobin 9.9 g/dL (11.5-15.4); Immature Granulocytes % 0.2 % (0-4); Lymphocytes # 1.9 K/mcL (0.6-4.6); Lymphocytes % 33.2 %; Mean Corpuscular HGB Conc 32.4 g/dL (31.6-35.5); Mean Corpuscular Volume 83.4 fL (83.0-100.0); Mean Platelet Volume 8.3 fL (9.4-12.4); Monocytes # 0.5 K/mcL (0.0-1.3); Neutrophils # 3.3 K/mcL (1.6-8.9); Platelet Count 324 K/mcL (140-400); Red Blood Count 3.67 M/mcL (3.82-4.97); Red Cell Distribution Width 13.7 % (11.5-14.5); Segmented Neutrophils % 57.2 %
[2017-01-16] MEDS: *HR* Enoxaparin 40 MG/0.4 ML SYRINGE SQ SCH (05:32)
[2017-01-16] MEDS: Budesonide/Formoterol 80/4.5 MDI IH SCH ×2 (08:10→23:48)
[2017-01-16] MEDS: Nicotine 7 MG PATCH.TD24 TD SCH (08:13)
[2017-01-16] MEDS: Aspirin Enteric Coated 325 MG Tablet PO SCH (08:13)
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
[2017-01-16] MEDS ORDERED: Meropenem 500 MG in 0.9 % Sodium Chloride Mini Bag 100 ML IVPB SCH (16:00)
[2017-01-16] MEDS: Meropenem 500 MG in Water for inj. (sterile) 10 ML IVP SCH (16:23)
[2017-01-16] MEDS: cefTRIAXone 1,000 MG in Water for inj. (sterile) 10 ML IVPB SCH (21:15)
[2017-01-17] MEDS: Meropenem 500 MG in Water for inj. (sterile) 10 ML IVP SCH ×2 (00:05→09:57)
[2017-01-17] MEDS: *HR* Enoxaparin 40 MG/0.4 ML SYRINGE SQ SCH (05:31)
[2017-01-17 05:34] LABS: Basophils % 0.2 %; Eosinophils # 0.1 K/mcL (0.0-0.6); Hematocrit 31.1 % (35.3-44.9); Hemoglobin 10.2 g/dL (11.5-15.4); Immature Granulocytes % 0.3 % (0-4); Lymphocytes # 1.8 K/mcL (0.6-4.6); Mean Corpuscular HGB Conc 32.8 g/dL (31.6-35.5); Mean Corpuscular Hemoglobin 27.4 pg (28.0-33.3); Mean Corpuscular Volume 83.6 fL (83.0-100.0); Mean Platelet Volume 8.4 fL (9.4-12.4); Monocytes # 0.5 K/mcL (0.0-1.3); Monocytes % 7.9 %; Neutrophils # 3.5 K/mcL (1.6-8.9); Platelet Count 331 K/mcL (140-400); Red Blood Count 3.72 M/mcL (3.82-4.97); Red Cell Distribution Width 13.8 % (11.5-14.5); Segmented Neutrophils % 60.6 %
[2017-01-17] MEDS: Aspirin Enteric Coated 325 MG Tablet PO SCH (08:50)
[2017-01-17] MEDS: Nicotine 7 MG PATCH.TD24 TD SCH (08:51)
[2017-01-17] MEDS: (Aclidinium Bromide [Tudorza Pressair] 1 PUFF) IH SCH (08:51)
[2017-01-17] MEDS: Budesonide/Formoterol 80/4.5 MDI IH SCH ×2 (10:43→22:37)
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
[2017-01-17] MEDS: Cholecalciferol (D-3) 1,000 UNIT TABLET PO SCH (12:30)
[2017-01-17] MEDS ORDERED: Ertapenem 1,000 MG in Water for inj. (sterile) 10 ML IVP SCH (14:00)
[2017-01-17] MEDS: Ertapenem 1,000 MG in Water for inj. (sterile) 10 ML IVP SCH (17:16)
[2017-01-17] MEDS ORDERED: Meropenem 1,000 MG in Water for inj. (sterile) 10 ML IVP SCH (18:00)
[2017-01-18] MEDS: *HR* Enoxaparin 40 MG/0.4 ML SYRINGE SQ SCH (06:12)
[2017-01-18 07:23] LABS: Basophils % 0.2 %; Eosinophils # 0.1 K/mcL (0.0-0.6); Eosinophils % 1.6 %; Hemoglobin 10.5 g/dL (11.5-15.4); Immature Granulocytes % 0.2 % (0-4); Lymphocytes # 1.7 K/mcL (0.6-4.6); Lymphocytes % 39.9 %; Mean Corpuscular HGB Conc 31.8 g/dL (31.6-35.5); Mean Corpuscular Hemoglobin 26.9 pg (28.0-33.3); Mean Corpuscular Volume 84.4 fL (83.0-100.0); Mean Platelet Volume 8.8 fL (9.4-12.4); Monocytes # 0.4 K/mcL (0.0-1.3); Monocytes % 8.5 %; Neutrophils # 2.1 K/mcL (1.6-8.9); Platelet Count 327 K/mcL (140-400); Red Blood Count 3.91 M/mcL (3.82-4.97); Segmented Neutrophils % 49.6 %
[2017-01-18] MEDS: Budesonide/Formoterol 80/4.5 MDI IH SCH (07:41)
[2017-01-18] MEDS ORDERED: VITAMIN D2 PO SCH (09:00)
[2017-01-18] MEDS ORDERED: CALCIUM CARBONATE PO SCH (09:00)
[2017-01-18] MEDS ORDERED: [UNRECOGNIZED DRUG - OTHER] PO SCH (09:00)
[2017-01-18] MEDS ORDERED: Aspirin 81 MG TAB.CHEW PO SCH (09:00)
[2017-01-18] MEDS: Nicotine 7 MG PATCH.TD24 TD SCH (09:29)
[2017-01-18] MEDS: Ertapenem 1,000 MG in Water for inj. (sterile) 10 ML IVP SCH (09:30)
[2017-01-18] MEDS: (Aclidinium Bromide [Tudorza Pressair] 1 PUFF) IH SCH (09:30)
[2017-01-18] MEDS: Cholecalciferol (D-3) 1,000 UNIT TABLET PO SCH (09:30)
[2017-01-18] MEDS ORDERED: Megestrol Acetate 400 MG/10 ML UDC PO SCH (12:15)
[2017-01-18] MEDS ORDERED: Tiotropium 18 MCG inhalation IH SCH (12:15)
--- NOTE | 2017-01-18 15:54 | Discharge Summary ---
Date of Encounter: 01/18/17 Time of Encounter: 15:52 - Discharge Diagnosis (1) C2 cervical fracture Priority: Primary Status: Acute Qualifiers: Encounter type: initial encounter Fracture type: closed Fracture morphology: other fracture Fracture alignment: displaced Qualified Code(s): S12.190A - Other displaced fracture of second cervical vertebra, initial encounter for closed fracture (2) Fracture of right tibia Priority: Secondary Status: Acute Qualifiers: Encounter type: initial encounter Tibia location: distal Fracture type: closed Fracture morphology: unspecified fracture morphology Qualified Code(s ): S82.301A - Unspecified fracture of lower end of right tibia, initial encounter for closed fracture (3) Cachexia Priority: Secondary Status: Chronic (4) COPD (chronic obstructive pulmonary disease) Priority: Secondary Status: Chronic Qualifiers: COPD type: unspecified COPD Qualified Code(s): J44.9 - Chronic obstructive pulmonary disease, unspecified (5) DVT prophylaxis Priority: Secondary Status: Acute (6) HTN (hypertension) Priority: Secondary Status: Chronic Qualifiers: Hypertension type: essential hypertension Qualified Code(s): I10 - Essential (primary) hypertension (7) Malnutrition Priority: Secondary Status: Chronic Qualifiers: Malnutrition type: protein-calorie malnutrition Protein-calorie malnutrition severity: severe Qualified Code(s): E43 - Unspecified severe protein-calorie malnutrition (8) Pulmonary nodule Priority: Secondary Status: Acute (9) Schizophrenia Priority: Secondary Status: Chronic Qualifiers: Schizophrenia type: unspecified Qualified Code(s): F20.9 - Schizophrenia, unspecified (10) Tobacco abuse Priority: Secondary Status: Chronic (11) UTI (urinary tract infection) Priority: Secondary Status: Acute Qualifiers: Urinary tract infection type: acute cystitis Hematuria presence: without hematuria Qualified Code(s): N30.00 - Acute cystitis without hematuria - Discharge Medications Prescriptions: Ertapenem [INVanz] 1,000 mg IVPB DAILY #11 vial HYDROcodone/Acet 5/325 mg [Mcdonald 5-325 mg] 1 tab PO Q6H PRN #14 tab PRN Reason: Pain Megestrol Acetate [Megace] 400 mg PO DAILY #30 udc Home Medications: Aclidinium [place] [Tudorza Pressair] 1 puff IH BID 10/26/16 [History] Albuterol Sulfate [Ventolin Hfa] 2 puff IH Q4-6H PRN 10/26/16 [History] Alendronate Sodium [Fosamax] 70 mg PO QWEEK 10/26/16 [History] Benztropine [Cogentin] 1 mg PO HS 10/26/16 [History] Calcium Carbonate/Vitamin D2 [Ra Oyster Shell-Vitamin D Tab] 1 tab PO DAILY [History] Fluticasone/Salmeterol [Advair 250-50 Diskus] 1 puff IH BID 10/26/16 [History] Haloperidol Decanoate [Haldol] 50 mg IM QMONTH 10/26/16 [History] Lisinopril [Zestril] 5 mg PO DAILY 10/26/16 [History] Acetaminophen [Tylenol] 650 mg PO Q6HR PRN #0 tab 10/28/16 [Rx] Aspirin [Lo-Dose Aspirin EC] 324 mg PO DAILY 30 Days tablet. 10/28/16 [Rx] Potassium Chloride [Klor-Con 10] 10 meq PO DAILY #30 10/28/16 [Rx] Omeprazole [PriLOSEC] 20 mg PO DAILY 01/13/17 [History] Ertapenem [INVanz] 1,000 mg IVPB DAILY #11 vial 01/18/17 [Rx] HYDROcodone/Acet 5/325 mg [Mcdonald 5-325 mg] 1 tab PO Q6H PRN #14 tab 01/18/17 [Rx ] Megestrol Acetate [Megace] 400 mg PO DAILY #30 udc 01/18/17 [Rx] Allergies/Adverse Reactions: 3 Allergy/AdvReac Type Severity Reaction Status Date / Time No Known Allergies Allergy Verified 01/13/17 08:27 Date of admission: 01/13/17 14:35 Primary care physician: PCP NONE Consults: 01/13/17 14:41 Consult to Nutrition [CONS] Routine Comment: Consulting Provider: NUTRITION Reason for Dietary Consult: Other Other:: malnourished 01/13/17 14:45 Consult to Senior Marketing Specialist [CONS] Routine Reason for SW Consult: malnourished, frequent falls, bruising on face Discharging clinician: Johanne Genao Anticipated date of discharge: 01/18/17 - Patient Status Disposition: Transfer SNF Condition: Fair Functional capacity at discharge: bed bound Overall status at discharge: patient is not back to baseline - Discharge Instructions Follow Up With: NONE,PCP [Primary Care Provider] - (at SNF) - Diet and Activity Activity: as per physical therapy Diet: advance to your usual diet, low fat, low cholesterol, low salt diet Hospital course: Ms. Choi is a 71 year old female patient with history of essential hypertension, schizophrenia, COPD and Alzheimer's dementia who was hospitalized here after a fall resulting in fracture of the C2 cervical vertebra. She also had recently fractured her right tibia and fibula. She was evaluated by orthopedics and recommended splint for her right lower extremity. Spine surgery was consulted and according to their recommendations, she has been placed in the soft collar around her neck. She does not have any neurologic deficits. During her workup, she was found to have acute urinary tract infection. Urine culture is positive for ESBL Escherichia coli. She has been started on treatment for this with ertapenem and will complete 14 day antibiotic course. She was evaluated by physical therapy and recommended placement to skilled rehabilitation. She will be discharged from the hospital when she has been accepted to a detention facility for further management. Patient does have protein calorie malnutrition and has been placed on Megace to stimulate appetite. - Time Spent with Patient Total time spent providing and/or coordinating discharge services: Greater than 30 minutes (40 min) - Constitutional Vitals: Temp Pulse Resp BP Pulse Ox 97.4 F L 83 16 121/72 96 01/18/17 11:54 01/18/17 11:54 01/18/17 11:54 01/18/17 11:54 01/18/17 11:54 General appearance: Present: cachectic, cooperative, A&O X 2, pleasant, no acute distress, underweight, answers questions appropriately - Neck Neck exam general surgery: Present: supple, trachea midline. Absent: lymphadenopathy - Respiratory Respiratory exam: Present: CTAB. Absent: accessory muscle use, rales, rhonchi, wheezes - Cardiovascular Cardiovascular exam: Present: RRR, +S1, +S2. Absent: diastolic murmur, gallop, rubs, systolic murmur
[2017-01-18 15:57] VITALS: BP 112/69
--- NOTE | 2017-01-18 16:03 | Physician Discharge Referral ---
ExtendedCare Referral Info Provider in Charge after Transfer: PCP Institutional Level of Care: Skilled - Diagnosis (1) C2 cervical fracture Priority: Primary Status: Acute (2) Fracture of right tibia Priority: Secondary Status: Acute (3) Cachexia Priority: Secondary Status: Chronic (4) COPD (chronic obstructive pulmonary disease) Priority: Secondary Status: Chronic (5) DVT prophylaxis Priority: Secondary Status: Acute (6) HTN (hypertension) Priority: Secondary Status: Chronic (7) Malnutrition Priority: Secondary Status: Chronic (8) Pulmonary nodule Priority: Secondary Status: Acute (9) Schizophrenia Priority: Secondary Status: Chronic (10) Tobacco abuse Priority: Secondary Status: Chronic (11) UTI (urinary tract infection) Priority: Secondary Status: Acute Prognosis: Poor Aware of Diagnosis: Patient, Family Aware of Prognosis: Patient, Family - Transfer Medications Prescriptions: Ertapenem [INVanz] 1,000 mg IVPB DAILY #11 vial HYDROcodone/Acet 5/325 mg [Bartlett 5-325 mg] 1 tab PO Q6H PRN #14 tab PRN Reason: Pain Megestrol Acetate [Megace] 400 mg PO DAILY #30 [facility] Home Medications: Aclidinium [place] [Tudorza Pressair] 1 puff IH BID 10/26/16 [History] Albuterol Sulfate [Ventolin Hfa] 2 puff IH Q4-6H PRN 10/26/16 [History] Alendronate Sodium [Fosamax] 70 mg PO QWEEK 10/26/16 [History] Benztropine [Cogentin] 1 mg PO HS 10/26/16 [History] Calcium Carbonate/Vitamin D2 [Ra Oyster Shell-Vitamin D Tab] 1 tab PO DAILY [History] Fluticasone/Salmeterol [Advair 250-50 Diskus] 1 puff IH BID 10/26/16 [History] Haloperidol Decanoate [Haldol] 50 mg IM QMONTH 10/26/16 [History] Lisinopril [Zestril] 5 mg PO DAILY 10/26/16 [History] Acetaminophen [Tylenol] 650 mg PO Q6HR PRN #0 tab 10/28/16 [Rx] Aspirin [Lo-Dose Aspirin EC] 324 mg PO DAILY 30 Days tablet. 10/28/16 [Rx] Potassium Chloride [Klor-Con 10] 10 meq PO DAILY #30 10/28/16 [Rx] Omeprazole [PriLOSEC] 20 mg PO DAILY 01/13/17 [History] Ertapenem [INVanz] 1,000 mg IVPB DAILY #11 vial 01/18/17 [Rx] HYDROcodone/Acet 5/325 mg [Bartlett 5-325 mg] 1 tab PO Q6H PRN #14 tab 01/18/17 [Rx ] Megestrol Acetate [Megace] 400 mg PO DAILY #30 udc 01/18/17 [Rx] Allergies/Adverse Reactions: 3 Allergy/AdvReac Type Severity Reaction Status Date / Time No Known Allergies Allergy Verified 01/13/17 08:27 - Respiratory Orders Smoking Cessation: Smoking cessation has been advised. For more information, call the [employer] Tobacco Quit Line at 1-834-ANUC-NOW. - Lab Orders Lab Orders: Other (include drug levels w/frequency) (Please check CBC, basic panel on 01/21/17) - Ancillary Orders May consult with Dentist, Scoreboard Operator, Cyber Reverse Engineer PRN - Advance Directives Code Status: Full Code - Diet Orders Cardiac (Supplement with Ensure 3 times a day) CERTIFICATION: I certify that the transfer of the above named patient to an Extended Care Facility is necessary for the continuing treatment of the diagnosis listed. The above information is true and accurate reflection of patient's current condition. Confidential - Redisclosure prohibited without a patient's written consent.
== END 2017-01-18 18:39 | DRG 551 ==
LOC: 3ANU 08:26 → EMEROO 08:26 → 3ANU 13:37 → SUATTDRO 14:35
PROVIDERS: ADMIT Nurse Practitioner Acute Care; ATTEND Internal Medicine

== ENCOUNTER 2017-02-08 10:41 | Inpatient (IN) ==
[2017-02-08] MEDS ORDERED: Ipratropium/Albuterol Neb 3 ML IH ONE (10:54)
[2017-02-08] MEDS ORDERED: predniSONE 20 MG TABLET PO ONE (10:55)
--- NOTE | 2017-02-08 11:04 | Emergency Department Note ---
Disposition Clinical Impression: Esophagitis Atrial flutter Qualifiers: Atrial flutter type: unspecified Qualified Code(s): I48.92 - Unspecified atrial flutter Disposition: Admitted As Inpatient Condition: Undetermined Referrals: Krystle Oseguera MD [Primary Care Provider] - Forms: ED Satisfaction Letter, Work/School Release Time of Disposition: 15:58 General Adult HPI - General Chief complaint: ED General Medical Stated complaint: General Time Seen by Provider: 02/08/17 10:51 Source: patient, EMS Mode of arrival: EMS Limitations: no limitations Nursing Notes Reviewed: Yes Vital Signs Reviewed: Yes - History of Present Illness HPI Narrative: 71-year-old female with history of dementia and schizophrenia, COPD arrives [facility] emergency department from the nursing facility where the patient was noted to have been coughing some frothy sputum and be short of breath. The patient had a choking episode where she coughed up some sputum. Patient was noted then to be tachycardic and mildly hypoxic with an O2 saturation 93% on 2 L. The patient was transported subsequently to the emergency department for evaluation. The patient arrives to the emergency department in no respiratory distress with an O2 saturation of 99% on room air and the patient has coarse breath sounds on auscultation. Patient denies any complaints at this time. She is answering person and place and able to follow commands without difficulty. Onset (ago): Just [employer]SEM[employer] Pain Scale: 0 Associated symptoms: Reports: denies other symptoms Treatments Prior to Arrival: none - Related Data Home Medications Medication Instructions Recorded Confirmed Aclidinium [place] [Tudorza 1 puff IH BID 10/26/16 02/08/17 Pressair] Albuterol Sulfate [Ventolin Hfa] 2 puff IH Q4-6H PRN 10/26/16 02/08/17 Alendronate Sodium [Fosamax] 70 mg PO QWEEK 10/26/16 02/08/17 Benztropine [Cogentin] 1 mg PO HS 10/26/16 02/08/17 Calcium Carbonate/Vitamin D2 [Ra 1 tab PO DAILY 10/26/16 02/08/17 Oyster Shell-Vitamin D Tab] Fluticasone/Salmeterol [Advair 1 puff IH BID 10/26/16 02/08/17 250-50 Diskus] Haloperidol Decanoate [Haldol] 50 mg IM QMONTH 10/26/16 02/08/17 Omeprazole [PriLOSEC] 20 mg PO DAILY 01/13/17 02/08/17 Guaifenesin [Mucinex] 600 mg PO Q12H 02/08/17 02/08/17 Lisinopril [Zestril] 10 mg PO DAILY 02/08/17 02/08/17 Previous Rx's Medication Instructions Recorded Acetaminophen [Tylenol] 650 mg PO Q6HR PRN #0 tab 10/28/16 Aspirin [Lo-Dose Aspirin EC] 324 mg PO DAILY 30 Days tablet. 10/28/16 Potassium Chloride [Klor-Con 10] 10 meq PO DAILY #30 10/28/16 Megestrol Acetate [Megace] 400 mg PO DAILY #30 udc 01/18/17 Allergies Allergy/AdvReac Type Severity Reaction Status Date / Time No Known Allergies Allergy Verified 01/13/17 08:27 All systems ED: reviewed and negative except as stated. Constitutional: Denies: fever, chills, weakness Cardiovascular: Denies: chest pain Respiratory: Reports: cough, sputum production. Denies: dyspnea, wheezes, hemoptysis, stridor Gastrointestinal: Denies: abdominal pain, nausea, vomiting Genitourinary: Denies: dysuria Musculoskeletal: Denies: back pain, neck pain, myalgia Neurological: Reports: confusion (Baseline dementia.). Denies: headache Past Medical History - Past Medical History Attestation: Yes The following information was validated with the patient. Source: old records reviewed Medical history: Reports: COPD, dementia, hyperlipidemia, hypertension Surgical history: Reports: hysterectomy (Total), other Psychiatric history: Reports: no psych history - Social History Smoking Status: Current every day smoker Smokeless Tobacco Status: No Alcohol use: Reports: none Drug use: Reports: none Physical Exam - General Limitations: no limitations General appearance: alert, in no apparent distress - Head Head exam: atraumatic, normocephalic, normal inspection - Eye Eye exam: Present: normal appearance, PERRL, EOMI, other (Patient has a small healing ecchymotic region just inferior to the left orbit associated with previous fall and subsequent admission to [facility].) - ENT ENT exam: normal exam, normal oropharynx, mucous membranes moist - Neck Neck exam: Present: normal inspection, full ROM, trachea midline - Chest Chest inspection: Present: normal inspection, symmetric chest wall rise - Respiratory Respiratory exam: Present: other (Coarse breath sounds) - Cardiovascular Cardiovascular exam: Present: regular rate, normal rhythm, normal heart sounds - Abdominal Exam Abdominal exam: Present: soft, Non-Tender. Absent: tenderness, distention, guarding, rebound, rigidity - Extremities Exam Extremities exam: Present: normal inspection, full ROM. Absent: tenderness, pedal edema Course Vital Signs Temperature 98.1 F 02/08/17 10:48 Pulse Rate 89 02/08/17 10:48 Respiratory Rate 14 02/08/17 10:48 Blood Pressure 115/70 02/08/17 10:48 O2 Sat by Pulse Oximetry 98 02/08/17 10:48 Temperature 98.1 F 02/08/17 10:48 Pulse Rate 111 02/08/17 16:17 Respiratory Rate 18 02/08/17 16:17 Blood Pressure 86/62 02/08/17 16:17 O2 Sat by Pulse Oximetry 98 02/08/17 16:17 Oxygen Delivery Oxygen Delivery Room Air Medical Decision Making - [facility] Narrative Medical decision making narrative: His workup here in the emergency department demonstrated an esophagitis on CTA of the chest. In addition the patient was noted to have intermittent A. flutter which is a new diagnosis for her. The patient's heart rate would go into the 170s and then dropped into the 110s. The patient was administered 1 dose of Cardizem which did lower her heart rate into the 110s. It appears to be sinus tachycardia at this time after evaluation. The patient's urinalysis and CTA are otherwise unremarkable. The patient has no abdominal pain. Given the patient's tachycardia and intermittent A. fib flutter I will admit the patient to the hospitalist at this time. The patient received 80 mg IV Protonix. Accepted by Dr. Haile. - Lab Data Lab results reviewed: Yes I reviewed the patient's lab results. Result diagrams: 02/08/17 11:05 02/08/17 11:05 Lab Results 02/08/17 02/08/17 02/08/17 Range/Units 11:04 11:05 11:05 Hgb 10.6 L (11.5-15.4) g/dL Hct 32.9 L (35.3-44.9) % D-Dimer 1261 H (0-500) ng/mLFEU Sodium (136-145) mEq/L Potassium (3.5-4.5) mEq/L Chloride (98-109) mEq/L Carbon Dioxide (19-29) mEq/L BUN (7-20) mg/dL Creatinine (0.57-1.11) mg/dL Est GFR ( Amer) (> 60) Est GFR (Non-Af Amer) (> 60) BUN/Creatinine Ratio (6-26) Glucose (70-99) mg/dL Calculated Osmolality (280-300) Lactic Acid 2.0 (0.5-2.2) mmol/L Calcium (8.6-10.8) mg/dL Urine Color (Yellow) Urine Clarity (Clear) Urine pH (5.0-8.0) pH Units Ur Specific [place] (1.010-1.025) Urine Protein (Neg-Trace) mg/dL Urine Glucose (UA) (Normal) mg/dL Urine Ketones (Negative) mg/dL Urine Blood (Negative) Urine Nitrite (Negative) Urine Bilirubin (Negative) Urine Urobilinogen (Normal) mg/dL Ur Leukocyte Esterase (Negative) Urine Microscopic RBC (0-3) per hpf Urine Microscopic WBC (0-3) per hpf Ur Squamous Epith Cells (None-Few) per lpf Urine Bacteria (None-Few) per hpf Hyaline Casts (None-Few) per lpf Ur Culture Indicated? (NO) 02/08/17 02/08/17 Range/Units 11:05 13:12 Hgb (11.5-15.4) g/dL Hct (35.3-44.9) % D-Dimer (0-500) ng/mLFEU Sodium 133 L (136-145) mEq/L Potassium 3.7 (3.5-4.5) mEq/L Chloride 100 (98-109) mEq/L Carbon Dioxide 26 (19-29) mEq/L BUN 12 (7-20) mg/dL Creatinine 0.55 L (0.57-1.11) mg/dL Est GFR ( Amer) > 60 (> 60) Est GFR (Non-Af Amer) > 60 (> 60) BUN/Creatinine Ratio 22 (6-26) Glucose 132 H (70-99) mg/dL Calculated Osmolality 278 L (280-300) Lactic Acid (0.5-2.2) mmol/L Calcium 8.8 (8.6-10.8) mg/dL Urine Color Yellow (Yellow) Urine Clarity Cloudy A (Clear) Urine pH 6.5 (5.0-8.0) pH Units Ur Specific [place] 1.017 (1.010-1.025) Urine Protein Negative (Neg-Trace) mg/dL Urine Glucose (UA) Normal (Normal) mg/dL Urine Ketones Negative (Negative) mg/dL Urine Blood Trace H (Negative) Urine Nitrite Negative (Negative) Urine Bilirubin Negative (Negative) Urine Urobilinogen Normal (Normal) mg/dL Ur Leukocyte Esterase Negative (Negative) Urine Microscopic RBC 5-15 H (0-3) per hpf Urine Microscopic WBC 0-3 (0-3) per hpf Ur Squamous Epith Cells Many H (None-Few) per lpf Urine Bacteria None Seen (None-Few) per hpf Hyaline Casts Few (None-Few) per lpf Ur Culture Indicated? NO (NO) - Radiology Data Radiology results reviewed: Yes I reviewed the patient's radiology results. - EKG Data EKG #1 EKG attestation: Yes I reviewed and interpreted this EKG. EKG results narrative: Heart rate 96 bpm. NH interval 118 ms. QTC 366 ms. No sinus rhythm. No ST elevation or ST depression noted. EKG #2: Heart rate 1 36 bpm. NH interval 107 ms. QTC 347 ms. What appears to be sinus tachycardia with no ST elevation or ST depression noted. EKG #3: Heart rate 1 22 bpm. NH interval 148 ms. QTC 361 ms. Sinus tachycardia. No ST elevation or ST depression noted. Attestation Statement - Attestation Attestation: I examined this patient and my medical decision-making was reviewed with the Resident Physician. I agree with the documented findings, disposition and treatment plan as described.
[2017-02-08 11:12] LABS: Hematocrit 32.9 % (35.3-44.9); Hemoglobin 10.6 g/dL (11.5-15.4)
[2017-02-08 11:23] LABS: BUN/Creatinine Ratio 22 (6-26); Blood Urea Nitrogen 12 mg/dL (7-20); Calcium 8.8 mg/dL (8.6-10.8); Carbon Dioxide 26 mEq/L (19-29); Chloride 100 mEq/L (98-109); Glucose 132 mg/dL (70-99); Osmolality,Calculated 278 (280-300); Potassium 3.7 mEq/L (3.5-4.5); Sodium 133 mEq/L (136-145); eGFR For African Americans > 60 (> 60); eGFR For Non-African Americans > 60 (> 60)
[2017-02-08] MEDS ORDERED: dilTIAZem HCl 100 MG in D5% in Water 50 ML IVC SCH (12:30)
[2017-02-08 13:28] LABS: Bilirubin,Urine Negative (Negative); Blood,Urine Trace (Negative); Clarity,Urine Cloudy (Clear); Color,Urine Yellow (Yellow); Glucose,Urine (UA) Normal (Normal); Ketones,Urine Negative (Negative); Leukocyte Esterase,Urine Negative (Negative); Nitrite,Urine Negative (Negative); PH,Urine 6.5 pH Units (5.0-8.0); Protein,Urine Negative (Neg-Trace); Specific Gravity,Urine 1.017 (1.010-1.025); Urobilinogen,Urine Normal (Normal)
[2017-02-08 13:29] LABS: Bacteria,Urine None Seen per hpf (None-Few); Hyaline Casts,Urine Few per lpf (None-Few); Squamous Epithelial Cell,Urine Many per lpf (None-Few); WBC,Urine 0-3 per hpf (0-3)
[2017-02-08] MEDS ORDERED: Pantoprazole 80 MG in Water for inj. (sterile) 10 ML IVP ONE (15:35)
[2017-02-08] MEDS ORDERED: 0.9 % Sodium Chloride 500 ML IVC ONE (15:56)
[2017-02-08] MEDS ORDERED: Pantoprazole 80 MG in 0.9 % Sodium Chloride 50 ML IVP ONE (16:30)
[2017-02-08] MEDS ORDERED: Naloxone 0.4 MG/ML INJ IVP PRN (23:11)
[2017-02-08] MEDS ORDERED: Acetaminophen 325 MG TABLET PO PRN (23:11)
[2017-02-08] MEDS ORDERED: Ondansetron 4 MG/2 ML VIAL IVP PRN (23:11)
[2017-02-08] MEDS ORDERED: Albuterol 2.5 MG/3 ML NEBULIZER IH PRN (23:15)
[2017-02-08] MEDS ORDERED: Nitroglycerin 0.4 MG TAB.SUBL SL PRN (23:15)
[2017-02-08] MEDS ORDERED: Aspirin 81 MG TAB.CHEW PO SCH (23:30)
[2017-02-08] MEDS: Ipratropium/Albuterol Neb 3 ML IH SCH (23:43)
[2017-02-09] MEDS ORDERED: methylPREDNISolone 125 MG/2 ML VIAL IVP SCH ×2
[2017-02-09] MEDS: cefTRIAXone 1,000 MG in Water for inj. (sterile) 10 ML IVP SCH ×2 (00:06→22:02)
[2017-02-09 00:41] LABS: Hemoglobin 9.4 g/dL (11.5-15.4); Immature Granulocytes % 0.3 % (0-4); Lymphocytes # 0.8 K/mcL (0.6-4.6); Lymphocytes % 21.7 %; Mean Corpuscular HGB Conc 32.4 g/dL (31.6-35.5); Mean Corpuscular Hemoglobin 26.6 pg (28.0-33.3); Mean Corpuscular Volume 82.2 fL (83.0-100.0); Mean Platelet Volume 8.7 fL (9.4-12.4); Monocytes # 0.2 K/mcL (0.0-1.3); Neutrophils # 2.7 K/mcL (1.6-8.9); Platelet Count 276 K/mcL (140-400); Red Blood Count 3.53 M/mcL (3.82-4.97); Red Cell Distribution Width 14.5 % (11.5-14.5)
[2017-02-09 00:56] LABS: BUN/Creatinine Ratio 22 (6-26); Blood Urea Nitrogen 12 mg/dL (7-20); Calcium 8.5 mg/dL (8.6-10.8); Carbon Dioxide 26 mEq/L (19-29); Chloride 102 mEq/L (98-109); Glucose 122 mg/dL (70-99); Osmolality,Calculated 279 (280-300); Potassium 4.4 mEq/L (3.5-4.5); Sodium 134 mEq/L (136-145); eGFR For African Americans > 60 (> 60); eGFR For Non-African Americans > 60 (> 60)
--- NOTE | 2017-02-09 02:46 | Internal Med History&Physical ---
Date of Encounter: 02/09/17 Time of Encounter: 02:43 Assessment and Plan (1) COPD (chronic obstructive pulmonary disease) Current visit: No Status: Chronic Primary problem seems to be COPD exacerbation for which 2 nebs will be started as well as Mucinex. Probably COPD has triggered atrial flutter however now patient is converted to sinus rhythm Qualifiers: COPD type: COPD with acute exacerbation Qualified Code(s): J44.1 - Chronic obstructive pulmonary disease with (acute) exacerbation (2) Atrial flutter Current visit: Yes Status: Acute Came in with atrial flutter. Started on IV Cardizem and now converted to sinus rhythm. Check cardiac enzymes in the morning. Please consult cardiology in the morning Qualifiers: Atrial flutter type: unspecified Qualified Code(s): I48.92 - Unspecified atrial flutter (3) Esophagitis Current visit: Yes Status: Acute Shown on CT scan. Add PPI Internal Medicine - H&P: HPI Chief complaint: Cough and shortness of breath Admitted From: Home Plans for Post Hospital Care: Home History of present illness: Ms. Choi is a 71 year old female sent from retirement for productive cough and shortness of breath. She has underlying his schizophrenia and dementia due to which she could provide very little information about herself. Essentially she denies any symptoms. She seems quite comfortable though. No further information could be obtained except that in the ER she was noted to be in a flutter and IV Cardizem given. But now I have noted she is in sinus rhythm. She denies any chest pain Past Med Surg Social Fam HX - Past Medical History Medical history: COPD, dementia, hyperlipidemia, hypertension Psychiatric history: no psych history - Past Surgical History Surgical History: hysterectomy, other - Social History Smoking Status: Current every day smoker Smokeless Tobacco Status: No Alcohol use: none Drug use: none - Family History Brother Family Member Ethnicity: Non- Living Status: Still Living Sister Family Member Ethnicity: Non- Living Status: Still Living Mother Family Member Ethnicity: Non- Living Status: Hx Family Cardiac Disorders: Yes (HD) Hx Family Respiratory Disorders: No Hx Family Cancer: Yes Hx Family GI Disorders: No Hx Family Endocrine Disorder: No Hx Family Neuromuscular Disorders: No Hx Family Neurologic Disorders: No Hx Family HEENT Disorders: No Hx Family Autoimmune Disorders: No Father Family Member Ethnicity: Non- Living Status: Internal Medicine - H&P: Meds Aclidinium [place] [Tudorza Pressair] 1 puff IH BID 10/26/16 [History] Albuterol Sulfate [Ventolin Hfa] 2 puff IH Q4-6H PRN 10/26/16 [History] Alendronate Sodium [Fosamax] 70 mg PO QWEEK 10/26/16 [History] Benztropine [Cogentin] 1 mg PO HS 10/26/16 [History] Calcium Carbonate/Vitamin D2 [Ra Oyster Shell-Vitamin D Tab] 1 tab PO DAILY [History] Fluticasone/Salmeterol [Advair 250-50 Diskus] 1 puff IH BID 10/26/16 [History] Haloperidol Decanoate [Haldol] 50 mg IM QMONTH 10/26/16 [History] Acetaminophen [Tylenol] 650 mg PO Q6HR PRN #0 tab 10/28/16 [Rx] Aspirin [Lo-Dose Aspirin EC] 324 mg PO DAILY 30 Days tablet. 10/28/16 [Rx] Potassium Chloride [Klor-Con 10] 10 meq PO DAILY #30 10/28/16 [Rx] Omeprazole [PriLOSEC] 20 mg PO DAILY 01/13/17 [History] Megestrol Acetate [Megace] 400 mg PO DAILY #30 udc 01/18/17 [Rx] Guaifenesin [Mucinex] 600 mg PO Q12H 02/08/17 [History] Lisinopril [Zestril] 10 mg PO DAILY 02/08/17 [History] 3 Allergy/AdvReac Type Severity Reaction Status Date / Time No Known Allergies Allergy Verified 01/13/17 08:27 All Systems PM: A 10-system review of systems was performed and is negative for pertinent findings except as documented above in the HPI. - Constitutional Constitutional: no chills, no fever(s), no night sweats - EENT Eyes: no change in vision, no discharge, no pain, no photophobia Ears: no ear discharge, no ear pain, no tinnitus Nose, mouth and throat: no dysphagia, no nasal discharge, no neck pain, no sore throat - Cardiovascular Cardiovascular ROS IM: no chest pain, no diaphoresis, no dyspnea, no lightheadedness, no palpitations, no syncope - Respiratory Respiratory: no cough, no dyspnea, no wheezing, no excessive phlegm production - Gastrointestinal Gastrointestinal: no abdominal pain, no diarrhea, no hematemesis, no hematochezia, no melena, no nausea, no vomiting - Genitourinary Genitourinary: no change in urinary stream, no dysuria, no flank pain, no hematuria - Musculoskeletal Musculoskeletal ROS IM: no numbness, no tingling - Integumentary Integumentary IM: no rash, no unusual bruising - Neurological Neurological ROS: no confusion, no convulsions, no focal weakness, no numbness, no tingling, no tremor(s) - Hematologic/Lymphatic Hematologic/Lymphatic: no easy bruising - Constitutional Vitals: Temp Pulse Resp BP Pulse Ox 97.8 F 81 20 123/70 100 02/09/17 00:40 02/09/17 00:40 02/09/17 00:40 02/09/17 00:40 02/09/17 00:40 - Head Head exam: Present: atraumatic, normocephalic - Eye Eye exam: Present: PERRL, conjuntiva pink, sclera anicteric Pupils: Present: PERRL - Neck Neck exam general surgery: Present: supple, trachea midline. Absent: lymphadenopathy - Respiratory Respiratory exam: Present: decreased breath sounds, prolonged expiratory phase, wheezes. Absent: accessory muscle use, rales, rhonchi - Cardiovascular Cardiovascular exam: Present: RRR, +S1, +S2. Absent: diastolic murmur, gallop, rubs, systolic murmur - GI/Abdominal GI/Abdominal exam: Present: normal bowel sounds, soft, no peritoneal signs. Absent: distended, tenderness - Extremities Exam Extremities exam: Present: warm, radial pulses palpable and symmetrical. Absent : calf tenderness, cyanotic, pedal edema - Neurological Exam Neurological exam: Present: CN II-XII intact, oriented X3, no focal deficits. Absent: pronater drift, facial droop, speech deficit - Skin Skin exam: Present: dry, intact Internal Med - H&P Results - Labs CBC & Chem 7: 02/09/17 00:08 02/09/17 00:08 Labs: Short CBC 02/09/17 Range/Units 00:08 WBC 3.7 L (4.3-11.1) K/mcL Hgb 9.4 L (11.5-15.4) g/dL Hct 29.0 L (35.3-44.9) % Plt Count 276 (140-400) K/mcL Neutrophils # 2.7 (1.6-8.9) K/mcL BMP 02/09/17 00:08 Sodium 134 L Potassium 4.4 Chloride 102 Carbon Dioxide 26 BUN 12 Creatinine 0.54 L Glucose 122 H Calcium 8.5 L Cardiac Enzymes 02/09/17 Range/Units 00:08 Troponin I 0.02 (0-0.03) ng/mL
[2017-02-09] MEDS: Ipratropium/Albuterol Neb 3 ML IH SCH ×4 (04:25→22:54)
[2017-02-09] MEDS: *HR* Enoxaparin 30 MG/0.3 ML SYRINGE SQ SCH (06:00)
--- NOTE | 2017-02-09 07:23 | Electrocardiograph Report ---
[facility] Test Date: 2017-02-08 Pat Name: Lauren Choi Department: 103 Room: 2NE35 Gender: F Log Marker: PRANAY : 1945 Requested By: Dipak Moore Order Number: [id number] Reading MD: Aneesh Reese DO Measurements Intervals [place] Rate: 136 P: 75 ID: 107 QRS: 81 QRSD: 67 T: 80 QT: 267 QTc: 347 Interpretive Statements SINUS TACHYCARDIA WITH SHORT ID INTERVAL WITH OCCASIONAL VENTRICULAR PREMATURE COMPLEXES MODERATE ST DEPRESSION [0.05+ mV ST DEPRESSION] Electronically Signed On 02-09-2017 7:21:36 EST by Aneesh Reese DO
--- NOTE | 2017-02-09 10:59 | Event Note ---
Date of Encounter: 02/09/17 Time of Encounter: 10:30 Patient is a 71y/o female with PMH of HTN, Schizophrenia, Alzheimer's dementia, COPD who was transferred from [place] for evaluation of shortness of breath and productive cough. Pt seen and examined at bedside. Admitted for COPD exacerbation. Was found to have new onset Aflutter in the ER and received a one time dose of Cardizem 8mg IVP in the ER. Currently in NSR No wheezing noted on physical exam. Pt started on BB and tolerating therapy mental status waxes and wanes at baseline as per reports, currently only oriented to self and place. Saturating well on room air. Will continue Prednisone, bronchodilator support, O2 supplementation as needed f/u sputum and resp viral panel Aflutter resolved, currently in NSR. f/u 2D echo Cardiology f/u requested vitals and labs reviewed restarted patient's home medications
[2017-02-09] MEDS: predniSONE 20 MG TABLET PO SCH ×2 (12:27→16:23)
[2017-02-09] MEDS: Megestrol Acetate 400 MG/10 ML UDC PO SCH ×2 (12:28→16:23)
[2017-02-09] MEDS: Aspirin Enteric Coated 81 MG Tablet PO SCH ×2 (12:28→16:22)
--- NOTE | 2017-02-09 17:12 | Event Note ---
Date of Encounter: 02/09/17 Time of Encounter: 17:08 - Cardiology Event Note 71 YOM with multiple comorbidities presents with likely COPD exacerbation and tachycardia. EKG with a HR 140 bpm sinus tachycardia, currently also in NSR. Reviewed EKGs unable to find atrial flutter, discussed with primary team. Currently unable to find atrial flutter, will be happy to evaluate in consult if any further suspicious EKGs for arrythmia.
--- NOTE | 2017-02-09 19:13 | Electrocardiograph Report ---
[place] [address] Test Date: 2017-02-08 Pat Name: Lauren Choi Department: 103 Room: 2NE35 Gender: F Contact Centre Supervisor: : 1945 Requested By: Mariya Emery Order Number: [id number] Reading MD: Lukas Ramirez DO Measurements Intervals [place] Rate: 122 P: 88 [place]: 148 QRS: 81 QRSD: 68 T: 78 QT: 289 QTc: 361 Interpretive Statements SINUS TACHYCARDIA WITH FREQUENT SUPRAVENTRICULAR PREMATURE COMPLEXES ABNORMAL RHYTHM ECG Electronically Signed On 02-09-2017 19:12:03 EST by Lukas Ramirez DO
[2017-02-10 03:43] LABS: Basophils % 0.1 %; Eosinophils % 0.5 %; Hematocrit 32.1 % (35.3-44.9); Hemoglobin 10.5 g/dL (11.5-15.4); Immature Granulocytes % 0.2 % (0-4); Lymphocytes # 2.6 K/mcL (0.6-4.6); Lymphocytes % 31.9 %; Mean Corpuscular HGB Conc 32.7 g/dL (31.6-35.5); Mean Corpuscular Hemoglobin 26.5 pg (28.0-33.3); Mean Corpuscular Volume 81.1 fL (83.0-100.0); Mean Platelet Volume 8.9 fL (9.4-12.4); Monocytes # 0.7 K/mcL (0.0-1.3); Neutrophils # 4.9 K/mcL (1.6-8.9); Platelet Count 311 K/mcL (140-400); Red Blood Count 3.96 M/mcL (3.82-4.97); Red Cell Distribution Width 14.3 % (11.5-14.5); Segmented Neutrophils % 59.3 %
[2017-02-10 04:03] LABS: BUN/Creatinine Ratio 24 (6-26); Blood Urea Nitrogen 13 mg/dL (7-20); Calcium 7.9 mg/dL (8.6-10.8); Carbon Dioxide 24 mEq/L (19-29); Chloride 100 mEq/L (98-109); Glucose 82 mg/dL (70-99); Magnesium 1.5 mg/dL (1.6-2.6); Osmolality,Calculated 275 (280-300); Phosphorous 2.8 mg/dL (2.3-4.7); Potassium 3.6 mEq/L (3.5-4.5); Sodium 133 mEq/L (136-145); eGFR For African Americans > 60 (> 60); eGFR For Non-African Americans > 60 (> 60)
[2017-02-10] MEDS: Ipratropium/Albuterol Neb 3 ML IH SCH ×3 (04:34→16:20)
[2017-02-10] MEDS: *HR* Enoxaparin 30 MG/0.3 ML SYRINGE SQ SCH (05:58)
[2017-02-10 08:13] LABS: Adenovirus Not Detected (Not Detect); Bordetella Pertussis Not Detected (Not Detect); Chlamydophila pneumoniae Not Detected (Not Detect); Coronavirus 229E Not Detected (Not Detect); Coronavirus HKU1 Not Detected (Not Detect); Coronavirus NL63 Not Detected (Not Detect); Coronavirus OC43 Not Detected (Not Detect); Human Metapneumovirus Not Detected (Not Detect); Human Rhinovirus/Enterovirus Not Detected (Not Detect); Influenza A Subtype 2009 H1 Not Detected (Not Detect); Influenza A Untypeable Not Detected (Not Detect); Influenza B Not Detected (Not Detect); Mycoplasma pneumoniae Not Detected (Not Detect); Parainfluenza Virus 1 Not Detected (Not Detect); Parainfluenza Virus 2 Not Detected (Not Detect); Parainfluenza Virus 3 Not Detected (Not Detect); Parainfluenza Virus 4 Not Detected (Not Detect); Respiratory Syncytial Virus Not Detected (Not Detect)
[2017-02-10] MEDS ORDERED: Magnesium Sulfate 1 GM in D5% in Water 100 ML IVPB ONE (08:33)
[2017-02-10] MEDS: Megestrol Acetate 400 MG/10 ML UDC PO SCH (09:18)
[2017-02-10] MEDS: Aspirin Enteric Coated 81 MG Tablet PO SCH (09:28)
[2017-02-10] MEDS: predniSONE 20 MG TABLET PO SCH (09:28)
--- NOTE | 2017-02-10 14:29 | Discharge Summary ---
Date of Encounter: 02/10/17 Time of Encounter: 14:05 - Discharge Diagnosis (1) COPD exacerbation Priority: Primary Status: Acute (2) C2 cervical fracture Priority: Secondary Status: Chronic Qualifiers: Encounter type: initial encounter Fracture type: closed Fracture morphology: other fracture Fracture alignment: displaced Qualified Code(s): S12.190A - Other displaced fracture of second cervical vertebra, initial encounter for closed fracture (3) DVT prophylaxis Priority: Secondary Status: Acute (4) Esophagitis Priority: Secondary Status: Chronic (5) HLD (hyperlipidemia) Priority: Secondary Status: Chronic Qualifiers: Hyperlipidemia type: pure hypercholesterolemia Qualified Code(s): E78.00 - Pure hypercholesterolemia, unspecified; E78.0 - Pure hypercholesterolemia (6) HTN (hypertension) Priority: Secondary Status: Chronic Qualifiers: Hypertension type: essential hypertension Qualified Code(s): I10 - Essential (primary) hypertension (7) Schizophrenia Priority: Secondary Status: Chronic Qualifiers: Schizophrenia type: unspecified Qualified Code(s): F20.9 - Schizophrenia, unspecified - Discharge Medications Home Medications: Aclidinium [place] [Tudorza Pressair] 1 puff IH BID 10/26/16 [History] Albuterol Sulfate [Ventolin Hfa] 2 puff IH Q4-6H PRN 10/26/16 [History] Alendronate Sodium [Fosamax] 70 mg PO QWEEK 10/26/16 [History] Benztropine [Cogentin] 1 mg PO HS 10/26/16 [History] Calcium Carbonate/Vitamin D2 [Ra Oyster Shell-Vitamin D Tab] 1 tab PO DAILY [History] Fluticasone/Salmeterol [Advair 250-50 Diskus] 1 puff IH BID 10/26/16 [History] Haloperidol Decanoate [Haldol] 50 mg IM QMONTH 10/26/16 [History] Acetaminophen [Tylenol] 650 mg PO Q6HR PRN #0 tab 10/28/16 [Rx] Aspirin [Lo-Dose Aspirin EC] 324 mg PO DAILY 30 Days tablet. 10/28/16 [Rx] Potassium Chloride [Klor-Con 10] 10 meq PO DAILY #30 10/28/16 [Rx] Megestrol Acetate [Megace] 400 mg PO DAILY #30 udc 01/18/17 [Rx] Guaifenesin [Mucinex] 600 mg PO Q12H 02/08/17 [History] Lisinopril [Zestril] 10 mg PO DAILY 02/08/17 [History] Metoprolol [Lopressor] 12.5 mg PO BID tablet 02/10/17 [Rx] Omeprazole [PriLOSEC] 20 mg PO BID #0 02/10/17 [Rx] predniSONE [PredniSONE] 40 mg PO DAILY #2 tablet 02/10/17 [Rx] Allergies/Adverse Reactions: 3 Allergy/AdvReac Type Severity Reaction Status Date / Time No Known Allergies Allergy Verified 01/13/17 08:27 Procedures/tests Complete & Pending: Procedures Performed prior 72 hours Category Date Time Status ECG 12 lead ECG [ECG] Routine Y 02/08/17 12:54 Completed EV echocardiogram Routine Y 02/09/17 07:00 Completed Date of admission: 02/08/17 23:11 Primary care physician: Krystle Oseguera Consults: 02/08/17 23:14 Consult to Nutrition [CONS] Routine Comment: Consulting Provider: NUTRITION Reason for Dietary Consult: MST Score 02/09/17 09:43 Consult to Air Bag Buffer [CONS] Routine Reason for SW Consult: Return to [facility] (bed hold) 02/09/17 12:43 Consult to Speech Therapy [CONS] Stat Comment: Evaluate, develop and implement POC Reason for Consult: patient coughing and vomitting after taking medications Call Completed: No Discharging clinician: Mariya Emery Anticipated date of discharge: 02/10/17 - Patient Status Disposition: Transfer LTC Condition: Undetermined Overall status at discharge: patient is back to baseline - Discharge Instructions Follow Up With: Krystle Oseguera MD [Primary Care Provider] - Additional Instructions: Please follow up with your primary care physician within five days after your discharge from the hospital. Please continue oral Prednisone as prescribed. Please ask your PCP about continuation of Aspirin 325mg once daily Metoprolol has been added to your home medications. Resume all other home medications as prescribed by your primary care physician Please continue with mechanically altered soft and honey thickened liquids - Diet and Activity Activity: increase activity as tolerated, wear oxygen at all times Diet: other ( mechanically altered soft and honey thickened liquids ) Hospital course: Ms. Choi is a 71 year old female from [place] who was sent to the hospital for evaluation of shortness of breath. She was admitted for COPD exacerbation and started on PO Prednisone. She was initially found to have EKG concerning for Aflutter however upon further evaluation, it appeared to be Vtach. Pt responded well to steroids. BB was added for rate control. Pt currently back to baseline and will be returning back to the NH. pt was noted to have a wet cough with feedings due to which speech therapy evaluation was requested. As per speech therapist's recommendations, she was started on mechanically altered soft and honey thickened liquids At baseline patient's mental status waxes and wanes. She is currently AAO x 3. - Time Spent with Patient Total time spent providing and/or coordinating discharge services: Less than 30 minutes - Constitutional Vitals: Temp Pulse Resp BP Pulse Ox 98.1 F 78 14 155/82 99 02/10/17 12:00 02/10/17 12:00 02/10/17 12:00 02/10/17 12:00 02/10/17 12:00 General appearance: Present: A&O X 3, no acute distress, answers questions appropriately - Head Head exam: Present: atraumatic, normocephalic - Eye Eye exam: Present: conjuntiva pink, sclera anicteric - Respiratory Respiratory exam: Present: CTAB. Absent: respiratory distress, wheezes - Cardiovascular Cardiovascular exam: Present: RRR, +S1, +S2. Absent: diastolic murmur, gallop, rubs, systolic murmur - GI/Abdominal GI/Abdominal exam: Present: normal bowel sounds, soft, no peritoneal signs. Absent: distended, tenderness - Extremities Exam Extremities exam: Present: warm, radial pulses palpable and symmetrical. Absent : calf tenderness, cyanotic, pedal edema - Neurological Exam Neurological exam: Present: alert, oriented X3 - VTE Documentation of Mechanical Device: Intermittent pneumatic compression device
--- NOTE | 2017-02-10 15:59 | Physician Discharge Referral ---
[facility] Referral Info Transfer To: f Provider in Charge after Transfer: PCP Institutional Level of Care: Skilled - Diagnosis (1) COPD exacerbation Priority: Primary Status: Acute (2) C2 cervical fracture Priority: Secondary Status: Chronic (3) DVT prophylaxis Priority: Secondary Status: Acute (4) Esophagitis Priority: Secondary Status: Chronic (5) HLD (hyperlipidemia) Priority: Secondary Status: Chronic (6) HTN (hypertension) Priority: Secondary Status: Chronic (7) Schizophrenia Priority: Secondary Status: Chronic - Transfer Medications Home Medications: Aclidinium [place] [Tudorza Pressair] 1 puff IH BID 10/26/16 [History] Albuterol Sulfate [Ventolin Hfa] 2 puff IH Q4-6H PRN 10/26/16 [History] Alendronate Sodium [Fosamax] 70 mg PO QWEEK 10/26/16 [History] Benztropine [Cogentin] 1 mg PO HS 10/26/16 [History] Calcium Carbonate/Vitamin D2 [Ra Oyster Shell-Vitamin D Tab] 1 tab PO DAILY [History] Fluticasone/Salmeterol [Advair 250-50 Diskus] 1 puff IH BID 10/26/16 [History] Haloperidol Decanoate [Haldol] 50 mg IM QMONTH 10/26/16 [History] Acetaminophen [Tylenol] 650 mg PO Q6HR PRN #0 tab 10/28/16 [Rx] Aspirin [Lo-Dose Aspirin EC] 324 mg PO DAILY 30 Days tablet. 10/28/16 [Rx] Potassium Chloride [Klor-Con 10] 10 meq PO DAILY #30 10/28/16 [Rx] Megestrol Acetate [Megace] 400 mg PO DAILY #30 udc 01/18/17 [Rx] Guaifenesin [Mucinex] 600 mg PO Q12H 02/08/17 [History] Lisinopril [Zestril] 10 mg PO DAILY 02/08/17 [History] Metoprolol [Lopressor] 12.5 mg PO BID tablet 02/10/17 [Rx] Omeprazole [PriLOSEC] 20 mg PO BID #0 02/10/17 [Rx] predniSONE [PredniSONE] 40 mg PO DAILY #2 tablet 02/10/17 [Rx] Allergies/Adverse Reactions: 3 Allergy/AdvReac Type Severity Reaction Status Date / Time No Known Allergies Allergy Verified 01/13/17 08:27 - Respiratory Orders Smoking Cessation: Smoking cessation has been advised. For more information, call the [place] Tobacco Quit Line at 5-690-KONS-NOW. - Diet Orders House Supplement per Dietary: Please follow up with your primary care physician within five days after your discharge from the hospital. Please continue oral Prednisone as prescribed. Please ask your PCP about continuation of Aspirin 325mg once daily Metoprolol has been added to your home medications. Resume all other home medications as prescribed by your primary care physician Please continue with mechanically altered soft and honey thickened liquids Please crush medications prior to administration CERTIFICATION: I certify that the transfer of the above named patient to an Extended Care Facility is necessary for the continuing treatment of the diagnosis listed. The above information is true and accurate reflection of patient's current condition. Confidential - Redisclosure prohibited without a patient's written consent.
[2017-02-10 16:00] VITALS: BP 114/57
== END 2017-02-10 17:45 | DRG 191 ==
LOC: 2NENU 10:41 → EMEROO 10:41 → 2NENU 17:57
PROVIDERS: ADMIT Hospitalist; ATTEND Internal Medicine

== ENCOUNTER 2017-08-17 10:03 | Inpatient (IN) ==
[2017-08-17] MEDS ORDERED: 0.9 % Sodium Chloride 1,000 ML IVC ONE (10:11)
--- NOTE | 2017-08-17 10:16 | Emergency Department Note ---
Disposition Clinical Impression: Sepsis Qualifiers: Sepsis type: sepsis due to unspecified organism Qualified Code(s): A41.9 - Sepsis, unspecified organism Pneumonia Qualifiers: Pneumonia type: due to unspecified organism Laterality: left Lung location: lower lobe of lung Qualified Code(s): J18.1 - Lobar pneumonia, unspecified organism Dementia Qualifiers: Dementia type: unspecified type Dementia behavioral disturbance: without behavioral disturbance Qualified Code(s): F03.90 - Unspecified dementia without behavioral disturbance Disposition: Admitted As Inpatient Condition: Undetermined Time of Disposition: 11:58 Fever HPI - General Chief Complaint: ED Fever Stated Complaint: fever/cough Time Seen by Provider: 08/17/17 10:06 Source: patient, EMS Mode of arrival: EMS Limitations: altered mental status Nursing Notes Reviewed: Yes Vital Signs Reviewed: Yes - History of Present Illness HPI Narrative: 72-year-old female who comes from long term facility who is baseline oriented to person, arrives to the emergency department with concern for fevers high as 103 degrees Fahrenheit, cough. The patient is currently being treated for urinary tract infection with antibiotic that is not listed in her paperwork. The patient is more confused than her baseline. She is unable to answer any questions or give history at this time. She has coarse breath sounds on auscultation of the left side. She is very cachectic. Patient according to her paperwork is currently full code. - Related Data Home Medications Medication Instructions Recorded Confirmed RX: Aclidinium [place] [Tudorza 1 puff IH BID 10/26/16 02/08/17 Pressair] RX: Albuterol Sulfate [Ventolin 2 puff IH Q4-6H PRN 10/26/16 02/08/17 Hfa] RX: Alendronate Sodium [Fosamax] 70 mg PO QWEEK 10/26/16 02/08/17 RX: Benztropine [Cogentin] 1 mg PO HS 10/26/16 02/08/17 RX: Calcium Carbonate/Vitamin D2 1 tab PO DAILY 10/26/16 02/08/17 [Ra Oyster Shell-Vitamin D Tab] RX: Fluticasone/Salmeterol [Advair 1 puff IH BID 10/26/16 02/08/17 250-50 Diskus] RX: Haloperidol Decanoate [Haldol] 50 mg IM QMONTH 10/26/16 02/08/17 RX: Guaifenesin [Mucinex] 600 mg PO Q12H 02/08/17 02/08/17 RX: Lisinopril [Zestril] 10 mg PO DAILY 02/08/17 02/08/17 Previous Rx's Medication Instructions Recorded RX: Acetaminophen [Tylenol] 650 mg PO Q6HR PRN #0 tab 10/28/16 RX: Aspirin [Lo-Dose Aspirin EC] 324 mg PO DAILY 30 Days tablet. 10/28/16 RX: Potassium Chloride [Klor-Con 10 meq PO DAILY #30 10/28/16 10] RX: Megestrol Acetate [Megace] 400 mg PO DAILY #30 udc 01/18/17 RX: Metoprolol [Lopressor] 12.5 mg PO BID tablet 02/10/17 RX: Omeprazole [PriLOSEC] 20 mg PO BID #0 02/10/17 RX: predniSONE [PredniSONE] 40 mg PO DAILY #2 tablet 02/10/17 Allergies Allergy/AdvReac Type Severity Reaction Status Date / Time No Known Allergies Allergy Verified 01/13/17 08:27 All systems ED: reviewed and negative except as stated. Constitutional: Reports: fever, weakness ENT ED: Denies: congestion Cardiovascular: Denies: chest pain Respiratory: Reports: cough. Denies: dyspnea, wheezes Gastrointestinal: Denies: abdominal pain, nausea, vomiting, diarrhea, constipation, hematochezia Genitourinary: Denies: urgency, dysuria, frequency Neurological: Reports: confusion Fever PMH - Past Medical History Medical history: Reports: dementia, hyperlipidemia, hypertension, COPD Surgical history: Reports: non-contributory Surgical history: Reports: other, hysterectomy Psychiatric history: Reports: no psych history - Social History Smoking Status: Current every day smoker Alcohol use: Reports: none Drug use: Reports: none Physical Exam - General Limitations: altered mental status General appearance: lethargic, cachectic - Head Head exam: atraumatic, normocephalic, normal inspection - Eye Eye exam: Present: normal appearance - ENT ENT exam: normal exam, normal oropharynx, mucous membranes moist - Neck Neck exam: Present: normal inspection, full ROM, trachea midline - Chest Chest inspection: Present: normal inspection, symmetric chest wall rise - Respiratory Respiratory exam: Present: other (Coarse breath sounds on left) - Cardiovascular Cardiovascular exam: Present: normal rhythm, tachycardia, normal heart sounds - Abdominal Exam Abdominal exam: Present: soft, Non-Tender. Absent: tenderness, distention, guarding, rebound, rigidity - Extremities Exam Extremities exam: Present: normal inspection, full ROM, other (Mild bruising noted on all 4 extremities). Absent: tenderness, pedal edema - Expanded Neurological Exam Patient oriented to: Absent: person, place, time Coma Scale Eye Opening: To Voice Coma Scale Motor Response: Localizes to Pain Coma Scale Verbal Response: None Coma Scale Total: 9 - Skin Skin exam: Present: warm, dry, intact, normal color Course Vital Signs Temperature 99.8 F H 08/17/17 10:05 Pulse Rate 107 08/17/17 10:05 Respiratory Rate 22 08/17/17 10:05 Blood Pressure 122/80 08/17/17 10:05 O2 Sat by Pulse Oximetry 95 08/17/17 10:05 Temperature 99.8 F H 08/17/17 10:05 Pulse Rate 107 08/17/17 10:05 Respiratory Rate 20 08/17/17 12:41 Blood Pressure 124/82 08/17/17 12:41 O2 Sat by Pulse Oximetry 95 08/17/17 10:05 Oxygen Delivery Oxygen Delivery Room Air Fever - MDM Narrative Medical decision making narrative: Patient's workup in the emergency department demonstrates findings consistent with sepsis. The patient appears to have a left lower lobe pneumonia. She was started on cefepime and vancomycin given the long term facility from which she came. The patient was noted be tachycardic without hypotension. The patient is a leukocytosis. Lactic acid is within normal limits. Blood cultures were obtained. The patient was given a 30 more milk per kilo bolus at 1000 mL due to weight. The patient will be admitted to the hospital at this time. The patient's family member was notified and agrees to plan. Patient does note to have an elevated troponin at 0.04. Given the mildly elevation and sepsis, this is likely the etiology. There are no acute changes noted on EKG noted. Accepted by Dr. Zazueta. - Lab Data Lab results reviewed: Yes I reviewed the patient's lab results. Result diagrams: 08/17/17 10:28 08/17/17 10:28 Lab Results 08/17/17 08/17/17 08/17/17 Range/Units 10:28 10:28 10:28 WBC 9.8 (4.3-11.1) K/mcL RBC 3.65 L (3.82-4.97) M/mcL Hgb 8.5 L (11.5-15.4) g/dL Hct 27.9 L (35.3-44.9) % MCV 76.4 L (83.0-100.0) fL MCH 23.3 L (28.0-33.3) pg MCHC 30.5 L (31.6-35.5) g/dL RDW 18.9 H (11.5-14.5) % Plt Count 331 (140-400) K/mcL MPV 8.6 L (9.4-12.4) fL Seg Neutrophils % 62.0 % Band Neutrophils % 32.0 H (0-4) % Lymphocytes % 2.0 % Monocytes % 2.0 % Basophils % 2.0 % Neutrophils # 9.2 H (1.6-8.9) K/mcL Lymphocytes # 0.2 L (0.6-4.6) K/mcL Monocytes # 0.2 (0.0-1.3) K/mcL Basophils # 0.2 (0.0-0.2) K/mcL Toxic Granulation Present A (Not Present) Dohle Bodies Present A (Not Present) Platelet Estimate Normal (Normal) Anisocytosis 1+ A (Not Present) PT 16.0 H (9.4-12.1) Seconds INR 1.5 APTT 24.0 L (26.0-36.0) Seconds Sodium 141 (136-145) mEq/L Potassium 3.6 (3.5-5.1) mEq/L Chloride 106 (98-107) mEq/L Carbon Dioxide 26 (23-29) mEq/L BUN 22 (8-23) mg/dL Creatinine 0.52 L (0.60-1.20) mg/dL Est GFR ( Amer) > 60 (> 60) Est GFR (Non-Af Amer) > 60 (> 60) BUN/Creatinine Ratio 42 H (6-26) Glucose 166 H (70-105) mg/dL Calculated Osmolality 299 (280-300) Lactic Acid (0.5-2.2) mmol/L Calcium 8.6 (8.6-10.3) mg/dL Magnesium 2.1 (1.6-2.6) mg/dL Total Bilirubin 0.5 (0.3-1.0) mg/dL Direct Bilirubin 0.1 (0.0-0.2) mg/dL Indirect Bilirubin 0.4 (0.0-1.2) mg/dL AST 13 (13-39) Units/L ALT 10 (7-52) Units/L Alkaline Phosphatase 72 (34-104) Units/L Troponin I 0.04 H* (< 0.04) ng/mL Serum Total Protein 5.9 L (6.4-8.9) g/dL Albumin 2.9 L (3.5-5.7) g/dL Globulin 3.0 (2.4-3.5) g/dL Albumin/Globulin Ratio 1.0 L (1.1-2.2) Urine Color (Yellow) Urine Clarity (Clear) Urine pH (5.0-8.0) pH Units Ur Specific [place] (1.010-1.025) Urine Protein (Neg-Trace) mg/dL Urine Glucose (UA) (Normal) mg/dL Urine Ketones (Negative) mg/dL Urine Blood (Negative) Urine Nitrite (Negative) Urine Bilirubin (Negative) Urine Urobilinogen (Normal) mg/dL Ur Leukocyte Esterase (Negative) Urine Microscopic RBC (0-3) per hpf Urine Microscopic WBC (0-3) per hpf Ur Squamous Epith Cells (None-Few) per lpf Urine Bacteria (None-Few) per hpf Hyaline Casts (None-Few) per lpf Ur Culture Indicated? (NO) 08/17/17 08/17/17 Range/Units 10:28 10:53 WBC (4.3-11.1) K/mcL RBC (3.82-4.97) M/mcL Hgb (11.5-15.4) g/dL Hct (35.3-44.9) % MCV (83.0-100.0) fL MCH (28.0-33.3) pg MCHC (31.6-35.5) g/dL RDW (11.5-14.5) % Plt Count (140-400) K/mcL MPV (9.4-12.4) fL Seg Neutrophils % % Band Neutrophils % (0-4) % Lymphocytes % % Monocytes % % Basophils % % Neutrophils # (1.6-8.9) K/mcL Lymphocytes # (0.6-4.6) K/mcL Monocytes # (0.0-1.3) K/mcL Basophils # (0.0-0.2) K/mcL Toxic Granulation (Not Present) Dohle Bodies (Not Present) Platelet Estimate (Normal) Anisocytosis (Not Present) PT (9.4-12.1) Seconds INR APTT (26.0-36.0) Seconds Sodium (136-145) mEq/L Potassium (3.5-5.1) mEq/L Chloride (98-107) mEq/L Carbon Dioxide (23-29) mEq/L BUN (8-23) mg/dL Creatinine (0.60-1.20) mg/dL Est GFR ( Amer) (> 60) Est GFR (Non-Af Amer) (> 60) BUN/Creatinine Ratio (6-26) Glucose (70-105) mg/dL Calculated Osmolality (280-300) Lactic Acid 1.2 (0.5-2.2) mmol/L Calcium (8.6-10.3) mg/dL Magnesium (1.6-2.6) mg/dL Total Bilirubin (0.3-1.0) mg/dL Direct Bilirubin (0.0-0.2) mg/dL Indirect Bilirubin (0.0-1.2) mg/dL AST (13-39) Units/L ALT (7-52) Units/L Alkaline Phosphatase (34-104) Units/L Troponin I (< 0.04) ng/mL Serum Total Protein (6.4-8.9) g/dL Albumin (3.5-5.7) g/dL Globulin (2.4-3.5) g/dL Albumin/Globulin Ratio (1.1-2.2) Urine Color Yellow (Yellow) Urine Clarity Hazy A (Clear) Urine pH 5.5 (5.0-8.0) pH Units Ur Specific [place] 1.022 (1.010-1.025) Urine Protein 30 H (Neg-Trace) mg/dL Urine Glucose (UA) Normal (Normal) mg/dL Urine Ketones Trace H (Negative) mg/dL Urine Blood Moderate H (Negative) Urine Nitrite Negative (Negative) Urine Bilirubin Negative (Negative) Urine Urobilinogen Normal (Normal) mg/dL Ur Leukocyte Esterase Moderate H (Negative) Urine Microscopic RBC 0-3 (0-3) per hpf Urine Microscopic WBC 50-100 H (0-3) per hpf Ur Squamous Epith Cells Many H (None-Few) per lpf Urine Bacteria Many H (None-Few) per hpf Hyaline Casts None Seen (None-Few) per lpf Ur Culture Indicated? NO. A (NO) - Radiology Data Radiology results reviewed: Yes I reviewed the patient's radiology results. Chest X-Ray 08/17/17 10:12 IMPRESSION: Possible left lower lobe pneumonia D/ / Joao Mustafa MD / oJao Mustafa MD Interpreting Provider: Joao Mustafa MD - EKG Data EKG attestation: Yes I reviewed and interpreted this EKG. EKG results narrative: Heart rate [address] elevation or ST depression. Normal sinus rhythm.
[2017-08-17] MEDS ORDERED: Acetaminophen 325 MG RECTAL SUPP RC ONE (10:22)
--- NOTE | 2017-08-17 10:23 | Emergency Department Note ---
Disposition Clinical Impression: Sepsis, Pneumonia, Dementia Disposition: Admitted As Inpatient Condition: Undetermined General Adult HPI - General Chief complaint: ED Fever Stated complaint: fever/cough Time Seen by Provider: 08/17/17 10:06 Source: patient, EMS Mode of arrival: EMS Limitations: altered mental status - History of Present Illness Pain Scale: 0 - Related Data Home Medications Medication Instructions Recorded Confirmed Aclidinium [place] [Tudorza 1 puff IH BID 10/26/16 02/08/17 Pressair] Albuterol Sulfate [Ventolin Hfa] 2 puff IH Q4-6H PRN 10/26/16 02/08/17 Alendronate Sodium [Fosamax] 70 mg PO QWEEK 10/26/16 02/08/17 Benztropine [Cogentin] 1 mg PO HS 10/26/16 02/08/17 Calcium Carbonate/Vitamin D2 [Ra 1 tab PO DAILY 10/26/16 02/08/17 Oyster Shell-Vitamin D Tab] Fluticasone/Salmeterol [Advair 1 puff IH BID 10/26/16 02/08/17 250-50 Diskus] Haloperidol Decanoate [Haldol] 50 mg IM QMONTH 10/26/16 02/08/17 Guaifenesin [Mucinex] 600 mg PO Q12H 02/08/17 02/08/17 Lisinopril [Zestril] 10 mg PO DAILY 02/08/17 02/08/17 Previous Rx's Medication Instructions Recorded Acetaminophen [Tylenol] 650 mg PO Q6HR PRN #0 tab 10/28/16 Aspirin [Lo-Dose Aspirin EC] 324 mg PO DAILY 30 Days tablet. 10/28/16 Potassium Chloride [Klor-Con 10] 10 meq PO DAILY #30 10/28/16 Megestrol Acetate [Megace] 400 mg PO DAILY #30 udc 01/18/17 Metoprolol [Lopressor] 12.5 mg PO BID tablet 02/10/17 Omeprazole [PriLOSEC] 20 mg PO BID #0 02/10/17 predniSONE [PredniSONE] 40 mg PO DAILY #2 tablet 02/10/17 Allergies Allergy/AdvReac Type Severity Reaction Status Date / Time No Known Allergies Allergy Verified 01/13/17 08:27 Constitutional: Reports: fever, weakness ENT ED: Denies: congestion Cardiovascular: Denies: chest pain Respiratory: Reports: cough. Denies: dyspnea, wheezes Gastrointestinal: Denies: abdominal pain, nausea, vomiting, diarrhea, constipation, hematochezia Genitourinary: Denies: urgency, dysuria, frequency Neurological: Reports: confusion Past Medical History - Past Medical History Medical history: Reports: dementia, hyperlipidemia, hypertension, COPD Surgical history: Reports: other, hysterectomy Psychiatric history: Reports: no psych history - Social History Smoking Status: Current every day smoker Smokeless Tobacco Status: No Alcohol use: Reports: none Drug use: Reports: none Physical Exam - General Limitations: altered mental status General appearance: lethargic, cachectic Course Vital Signs Temperature 99.8 F H 08/17/17 10:05 Pulse Rate 107 08/17/17 10:05 Respiratory Rate 22 08/17/17 10:05 Blood Pressure 122/80 08/17/17 10:05 O2 Sat by Pulse Oximetry 95 08/17/17 10:05 Temperature 99.8 F H 08/17/17 10:05 Pulse Rate 107 08/17/17 10:05 Respiratory Rate 22 08/17/17 10:05 Blood Pressure 122/80 08/17/17 10:05 O2 Sat by Pulse Oximetry 95 08/17/17 10:05 Oxygen Delivery Oxygen Delivery Nasal Cannula Medical Decision Making - Lab Data Result diagrams: 08/17/17 10:28 08/17/17 10:28 Lab Results 08/17/17 08/17/17 08/17/17 Range/Units 10:28 10:28 10:28 WBC 9.8 (4.3-11.1) K/mcL RBC 3.65 L (3.82-4.97) M/mcL Hgb 8.5 L (11.5-15.4) g/dL Hct 27.9 L (35.3-44.9) % MCV 76.4 L (83.0-100.0) fL MCH 23.3 L (28.0-33.3) pg MCHC 30.5 L (31.6-35.5) g/dL RDW 18.9 H (11.5-14.5) % Plt Count 331 (140-400) K/mcL MPV 8.6 L (9.4-12.4) fL Seg Neutrophils % 62.0 % Band Neutrophils % 32.0 H (0-4) % Lymphocytes % 2.0 % Monocytes % 2.0 % Basophils % 2.0 % Neutrophils # 9.2 H (1.6-8.9) K/mcL Lymphocytes # 0.2 L (0.6-4.6) K/mcL Monocytes # 0.2 (0.0-1.3) K/mcL Basophils # 0.2 (0.0-0.2) K/mcL Toxic Granulation Present A (Not Present) Dohle Bodies Present A (Not Present) Platelet Estimate Normal (Normal) Anisocytosis 1+ A (Not Present) PT 16.0 H (9.4-12.1) Seconds INR 1.5 APTT 24.0 L (26.0-36.0) Seconds Sodium 141 (136-145) mEq/L Potassium 3.6 (3.5-5.1) mEq/L Chloride 106 (98-107) mEq/L Carbon Dioxide 26 (23-29) mEq/L BUN 22 (8-23) mg/dL Creatinine 0.52 L (0.60-1.20) mg/dL Est GFR ( Amer) > 60 (> 60) Est GFR (Non-Af Amer) > 60 (> 60) BUN/Creatinine Ratio 42 H (6-26) Glucose 166 H (70-105) mg/dL Calculated Osmolality 299 (280-300) Lactic Acid (0.5-2.2) mmol/L Calcium 8.6 (8.6-10.3) mg/dL Magnesium 2.1 (1.6-2.6) mg/dL Total Bilirubin 0.5 (0.3-1.0) mg/dL Direct Bilirubin 0.1 (0.0-0.2) mg/dL Indirect Bilirubin 0.4 (0.0-1.2) mg/dL AST 13 (13-39) Units/L ALT 10 (7-52) Units/L Alkaline Phosphatase 72 (34-104) Units/L Troponin I 0.04 H* (< 0.04) ng/mL Serum Total Protein 5.9 L (6.4-8.9) g/dL Albumin 2.9 L (3.5-5.7) g/dL Globulin 3.0 (2.4-3.5) g/dL Albumin/Globulin Ratio 1.0 L (1.1-2.2) Urine Color (Yellow) Urine Clarity (Clear) Urine pH (5.0-8.0) pH Units Ur Specific [place] (1.010-1.025) Urine Protein (Neg-Trace) mg/dL Urine Glucose (UA) (Normal) mg/dL Urine Ketones (Negative) mg/dL Urine Blood (Negative) Urine Nitrite (Negative) Urine Bilirubin (Negative) Urine Urobilinogen (Normal) mg/dL Ur Leukocyte Esterase (Negative) Urine Microscopic RBC (0-3) per hpf Urine Microscopic WBC (0-3) per hpf Ur Squamous Epith Cells (None-Few) per lpf Urine Bacteria (None-Few) per hpf Hyaline Casts (None-Few) per lpf Ur Culture Indicated? (NO) 08/17/17 08/17/17 Range/Units 10:28 10:53 WBC (4.3-11.1) K/mcL RBC (3.82-4.97) M/mcL Hgb (11.5-15.4) g/dL Hct (35.3-44.9) % MCV (83.0-100.0) fL MCH (28.0-33.3) pg MCHC (31.6-35.5) g/dL RDW (11.5-14.5) % Plt Count (140-400) K/mcL MPV (9.4-12.4) fL Seg Neutrophils % % Band Neutrophils % (0-4) % Lymphocytes % % Monocytes % % Basophils % % Neutrophils # (1.6-8.9) K/mcL Lymphocytes # (0.6-4.6) K/mcL Monocytes # (0.0-1.3) K/mcL Basophils # (0.0-0.2) K/mcL Toxic Granulation (Not Present) Dohle Bodies (Not Present) Platelet Estimate (Normal) Anisocytosis (Not Present) PT (9.4-12.1) Seconds INR APTT (26.0-36.0) Seconds Sodium (136-145) mEq/L Potassium (3.5-5.1) mEq/L Chloride (98-107) mEq/L Carbon Dioxide (23-29) mEq/L BUN (8-23) mg/dL Creatinine (0.60-1.20) mg/dL Est GFR ( Amer) (> 60) Est GFR (Non-Af Amer) (> 60) BUN/Creatinine Ratio (6-26) Glucose (70-105) mg/dL Calculated Osmolality (280-300) Lactic Acid 1.2 (0.5-2.2) mmol/L Calcium (8.6-10.3) mg/dL Magnesium (1.6-2.6) mg/dL Total Bilirubin (0.3-1.0) mg/dL Direct Bilirubin (0.0-0.2) mg/dL Indirect Bilirubin (0.0-1.2) mg/dL AST (13-39) Units/L ALT (7-52) Units/L Alkaline Phosphatase (34-104) Units/L Troponin I (< 0.04) ng/mL Serum Total Protein (6.4-8.9) g/dL Albumin (3.5-5.7) g/dL Globulin (2.4-3.5) g/dL Albumin/Globulin Ratio (1.1-2.2) Urine Color Yellow (Yellow) Urine Clarity Hazy A (Clear) Urine pH 5.5 (5.0-8.0) pH Units Ur Specific [place] 1.022 (1.010-1.025) Urine Protein 30 H (Neg-Trace) mg/dL Urine Glucose (UA) Normal (Normal) mg/dL Urine Ketones Trace H (Negative) mg/dL Urine Blood Moderate H (Negative) Urine Nitrite Negative (Negative) Urine Bilirubin Negative (Negative) Urine Urobilinogen Normal (Normal) mg/dL Ur Leukocyte Esterase Moderate H (Negative) Urine Microscopic RBC 0-3 (0-3) per hpf Urine Microscopic WBC 50-100 H (0-3) per hpf Ur Squamous Epith Cells Many H (None-Few) per lpf Urine Bacteria Many H (None-Few) per hpf Hyaline Casts None Seen (None-Few) per lpf Ur Culture Indicated? NO. A (NO) Critical Care Time Critical Care Time: Yes Total Critical Care Time: 40 Attestation: Critical care performed: Time is exclusive of separately billable procedures. Time includes: direct patient care, patient reassessment, coordination of patient care, interpretation of data (laboratory data, radiology data, and respiratory data), review of patient's medical records, medical consultation and documentation of patient care. Procedures included in critical care time: Procedures excluded from critical care time: Attestation Statement - Attestation Attestation: I examined this patient and my medical decision-making was reviewed with the Resident Physician. I agree with the documented findings, disposition and treatment plan as described except to the extent set forth below. Patient to the ED with a chief complaint of fever. Cough. Recently treated for UTI with unknown antibiotic. On examination patient is cachectic. Laying on her side in the bed. Abdomen soft. Lungs coarse left greater than right. Sleeping but arousable. Plan. Septic workup. Patient with UTI. Left lower lobe pneumonia. Starting IV antibiotics. Patient meets sepsis criteria without severe sepsis or shock.
[2017-08-17 10:43] LABS: Hematocrit 27.9 % (35.3-44.9); Hemoglobin 8.5 g/dL (11.5-15.4); Mean Corpuscular HGB Conc 30.5 g/dL (31.6-35.5); Mean Corpuscular Hemoglobin 23.3 pg (28.0-33.3); Mean Corpuscular Volume 76.4 fL (83.0-100.0); Mean Platelet Volume 8.6 fL (9.4-12.4); Platelet Count 331 K/mcL (140-400); Red Blood Count 3.65 M/mcL (3.82-4.97); Red Cell Distribution Width 18.9 % (11.5-14.5)
[2017-08-17 10:57] LABS: INR 1.5
[2017-08-17 11:04] LABS: Bilirubin,Urine Negative (Negative); Blood,Urine Moderate (Negative); Color,Urine Yellow (Yellow); Glucose,Urine (UA) Normal (Normal); Ketones,Urine Trace mg/dL (Negative); Leukocyte Esterase,Urine Moderate (Negative); Nitrite,Urine Negative (Negative); PH,Urine 5.5 pH Units (5.0-8.0); Protein,Urine 30 mg/dL (Neg-Trace); Specific Gravity,Urine 1.022 (1.010-1.025); Urobilinogen,Urine Normal (Normal)
[2017-08-17 11:04] LABS: Alanine Aminotransferase 10 Units/L (7-52); Albumin 2.9 g/dL (3.5-5.7); Alkaline Phosphatase 72 Units/L (34-104); Aspartate Amino Transferase 13 Units/L (13-39); BUN/Creatinine Ratio 42 (6-26); Bilirubin,Direct 0.1 mg/dL (0.0-0.2); Bilirubin,Indirect 0.4 mg/dL (0.0-1.2); Bilirubin,Total 0.5 mg/dL (0.3-1.0); Blood Urea Nitrogen 22 mg/dL (8-23); Calcium 8.6 mg/dL (8.6-10.3); Carbon Dioxide 26 mEq/L (23-29); Chloride 106 mEq/L (98-107); Glucose 166 mg/dL (70-105); Magnesium 2.1 mg/dL (1.6-2.6); Osmolality,Calculated 299 (280-300); Potassium 3.6 mEq/L (3.5-5.1); Sodium 141 mEq/L (136-145); Total Protein 5.9 g/dL (6.4-8.9); eGFR For African Americans > 60 (> 60); eGFR For Non-African Americans > 60 (> 60)
[2017-08-17 11:05] LABS: Bacteria,Urine Many per hpf (None-Few); Hyaline Casts,Urine None Seen per lpf (None-Few); RBC,Urine 0-3 per hpf (0-3); Squamous Epithelial Cell,Urine Many per lpf (None-Few); WBC,Urine 50-100 per hpf (0-3)
[2017-08-17 11:09] LABS: Troponin I 0.04 ng/mL (< 0.04)
[2017-08-17] MEDS ORDERED: Vancomycin 500 MG in 0.9 % Sodium Chloride 250 ML IVPB ONE ×2 (11:21→12:45)
[2017-08-17] MEDS ORDERED: Cefepime HCl 1,000 MG in Water for inj. (sterile) 20 ML 10 ML IVP STA (11:21)
[2017-08-17 11:22] LABS: Clarity,Urine Hazy (Clear)
[2017-08-17 11:43] LABS: Basophils # 0.2 K/mcL (0.0-0.2); Lymphocytes # 0.2 K/mcL (0.6-4.6); Monocytes # 0.2 K/mcL (0.0-1.3); Neutrophils # 9.2 K/mcL (1.6-8.9)
[2017-08-17 11:45] LABS: Anisocytosis 1+ (Not Present); Platelet Estimate Normal (Normal)
[2017-08-17 11:50] LABS: Dohle Bodies Present (Not Present); Toxic Granulation Present (Not Present)
[2017-08-17] MEDS ORDERED: Naloxone 0.4 MG/ML INJ IVP PRN (13:16)
--- NOTE | 2017-08-17 13:22 | Internal Med History&Physical ---
Date of Encounter: 08/17/17 Time of Encounter: 13:20 Internal Medicine - H&P: HPI Chief complaint: Fever 100.3, not eating History of present illness: Ms. Choi is a 72 year old female who presents from a assisted with Fever 100.3, not eating. On possible pneumonia, FTT in the setting of dementia, possible UTI. He has been in assisted for the last one half years at least now. She started to decline after falling 4 years ago and broke her right hip that was managed conservatively. At baseline she is able to communicate but is bed bound immobile and his wheelchair dependent. He is a full code. She was brought into the hospital due to several days history of decreased appetite, not eating, lethargy with a temperature of 100.3 today. In discussion with family at bedside, she appears to exhibit a subacute decline in the last 2 months with decreased by mouth intake and progressive malnutrition. Family reports that the staff at assisted wanted her family to feed her. EKG personally reviewed with rate of 106, sinus tachycardia FINDINGS: The cardiomediastinal silhouette is stable. Airspace disease in the left lower lobe. No other airspace disease. No pulmonary vascular congestion. No pulmonary edema. XR/XR chest 1V portable IMPRESSION: Possible left lower lobe pneumonia Past Med Surg Social Fam HX - Past Medical History Medical history: dementia, hyperlipidemia, hypertension, COPD Psychiatric history: no psych history - Past Surgical History Surgical History: other, hysterectomy Additional surgical history: gallbladder removal - Social History Smoking Status: Current every day smoker Smokeless Tobacco Status: No Alcohol use: none Drug use: none - Family History Brother Family Member Ethnicity: Non- Living Status: Still Living Sister Family Member Ethnicity: Non- Living Status: Still Living Mother Family Member Ethnicity: Non- Living Status: Hx Family Cardiac Disorders: Yes (HD) Hx Family Respiratory Disorders: No Hx Family Cancer: Yes Hx Family GI Disorders: No Hx Family Endocrine Disorder: No Hx Family Neuromuscular Disorders: No Hx Family Neurologic Disorders: No Hx Family HEENT Disorders: No Hx Family Autoimmune Disorders: No Father Family Member Ethnicity: Non- Living Status: Internal Medicine - H&P: Meds Aclidinium Rugby [Tudorza Pressair] 1 puff IH BID 10/26/16 [History] Albuterol Sulfate [Ventolin Hfa] 2 puff IH Q4-6H PRN 10/26/16 [History] Alendronate Sodium [Fosamax] 70 mg PO QWEEK 10/26/16 [History] Benztropine [Cogentin] 1 mg PO HS 10/26/16 [History] Calcium Carbonate/Vitamin D2 [Ra Oyster Shell-Vitamin D Tab] 1 tab PO DAILY [History] Fluticasone/Salmeterol [Advair 250-50 Diskus] 1 puff IH BID 10/26/16 [History] Haloperidol Decanoate [Haldol] 50 mg IM QMONTH 10/26/16 [History] Acetaminophen [Tylenol] 650 mg PO Q6HR PRN #0 tab 10/28/16 [Rx] Aspirin [Lo-Dose Aspirin EC] 324 mg PO DAILY 30 Days tablet. 10/28/16 [Rx] Potassium Chloride [Klor-Con 10] 10 meq PO DAILY #30 10/28/16 [Rx] Megestrol Acetate [Megace] 400 mg PO DAILY #30 udc 01/18/17 [Rx] Guaifenesin [Mucinex] 600 mg PO Q12H 02/08/17 [History] Lisinopril [Zestril] 10 mg PO DAILY 02/08/17 [History] Metoprolol [Lopressor] 12.5 mg PO BID tablet 02/10/17 [Rx] Omeprazole [PriLOSEC] 20 mg PO BID #0 02/10/17 [Rx] predniSONE [PredniSONE] 40 mg PO DAILY #2 tablet 02/10/17 [Rx] 3 Allergy/AdvReac Type Severity Reaction Status Date / Time No Known Allergies Allergy Verified 01/13/17 08:27 All Systems PM: A 10-system review of systems was performed and is negative for pertinent findings except as documented above in the HPI. Review of systems: ROS 14 point review of systems reviewed as best as possible given presentation. Pertinent positive or negative as per HPI or otherwise reviewed as negative - Constitutional Vitals: Temp Pulse Resp BP Pulse Ox 99.8 F H 107 20 124/82 95 08/17/17 10:05 08/17/17 10:05 08/17/17 12:41 08/17/17 12:41 06/13/18 10:05 Exam: General - Alert Psych - Appropriate affect/speech. No agitation Eyes - MITCHELL. Eye lids intact. No scleral icterus Heart - Sinus. RRR. S1 and S2 present. No added HS/murmurs appreciated. No elevated JVD appreciated. Lung - Decrease air entry b/l, bibasal crackles , no wheezes appreciated GI - Soft, non-tender. No hepatosplenomegaly/ascites. BS+ - No CVA/suprapubic tenderness or palpable bladder distension Skin - Intact. Skin scab on haro. Warm extremities Internal Med - H&P Results - Labs CBC & Chem 7: 08/17/17 10:28 08/17/17 10:28 - Assessment and plan (1) Pneumonia Current Visit: Yes Status: Acute Assessment and plan: treat as HAP No overt evidence of sepsis on examination and clinical findings send serologies dysphagia diet , aspiration precautions, speech eval IVF - gentle to avoid overload incentive spirometry IV vanc and cefepime, pharmacy to assist, check van level with dosing Qualifiers: Pneumonia type: due to unspecified organism Laterality: left Lung location: lower lobe of lung Qualified Code(s): J18.1 - Lobar pneumonia, unspecified organism (2) Pyuria Current Visit: Yes Status: Acute Assessment and plan: send urine cx unsure if this is UTI already on empiric IV antibiotics (3) Dementia Current Visit: Yes Status: Acute Assessment and plan: dementia - progressive with FTT - decline consider further goals of care this inpatient Qualifiers: Dementia type: unspecified type Dementia behavioral disturbance: without behavioral disturbance Qualified Code(s): F03.90 - Unspecified dementia without behavioral disturbance (4) COPD (chronic obstructive pulmonary disease) Current Visit: No Status: Chronic Assessment and plan: chronic stable no acute flare on BID 10mg pred - looks like chronic (from SNF home paper work) Qualifiers: COPD type: chronic bronchitis Chronic bronchitis type: simple Qualified Code(s): J41.0 - Simple chronic bronchitis (5) HTN (hypertension) Current Visit: No Status: Chronic Assessment and plan: hold med given normotensive Qualifiers: Hypertension type: essential hypertension Qualified Code(s): I10 - Essential (primary) hypertension (6) Malnutrition Current Visit: No Status: Chronic Assessment and plan: FTT, decrease PO intake , likely related to progressive dementia, consult copper tapper Qualifiers: Malnutrition type: protein-calorie malnutrition Protein-calorie malnutrition severity: severe Qualified Code(s): E43 - Unspecified severe protein-calorie malnutrition (7) Elevated troponin Current Visit: Yes Status: Acute Assessment and plan: no acs. Likely type 2. Trend for now - Time Spent With Patient Total time spent is greater than 50% in coordination of care (as documented) at patient's floor/unit and/or counseling patient:
[2017-08-17] MEDS ORDERED: Ringers Solution, Lactated 1,000 ML ONE (13:37)
[2017-08-17] MEDS: Ringers Solution, Lactated 1,000 ML IVC SCH (14:48)
[2017-08-17] MEDS: Budesonide/Formoterol 80/4.5 MDI IH SCH (19:35)
[2017-08-17] MEDS ORDERED: (Aclidinium Bromide [Tudorza Pressair] 1 PUFF) IH SCH (21:00)
[2017-08-17] MEDS: predniSONE 20 MG TABLET PO SCH (22:26)
[2017-08-17] MEDS: Cefepime HCl 2,000 MG in Water for inj. (sterile) 20 ML 10 ML IVP SCH (22:29)
[2017-08-18 05:51] LABS: Hematocrit 25.6 % (35.3-44.9); Hemoglobin 7.7 g/dL (11.5-15.4); Immature Granulocytes % 0.3 % (0-4); Lymphocytes # 0.7 K/mcL (0.6-4.6); Lymphocytes % 8.3 %; Mean Corpuscular HGB Conc 30.1 g/dL (31.6-35.5); Mean Corpuscular Volume 76.4 fL (83.0-100.0); Mean Platelet Volume 9.2 fL (9.4-12.4); Monocytes # 0.3 K/mcL (0.0-1.3); Monocytes % 3.6 %; Platelet Count 245 K/mcL (140-400); Red Blood Count 3.35 M/mcL (3.82-4.97); Red Cell Distribution Width 18.8 % (11.5-14.5); Segmented Neutrophils % 87.8 %
[2017-08-18] MEDS ORDERED: *HR* Enoxaparin 40 MG/0.4 ML SYRINGE SQ SCH (06:00)
[2017-08-18] MEDS: Cefepime HCl 2,000 MG in Water for inj. (sterile) 20 ML 10 ML IVP SCH ×2 (06:06→16:54)
[2017-08-18 06:20] LABS: BUN/Creatinine Ratio 56 (6-26); Blood Urea Nitrogen 19 mg/dL (8-23); Calcium 7.9 mg/dL (8.6-10.3); Carbon Dioxide 22 mEq/L (23-29); Chloride 109 mEq/L (98-107); Ferritin 97 ng/mL (10-120); Glucose 157 mg/dL (70-105); Iron < 10 mcg/dL (50-170); Magnesium 1.8 mg/dL (1.6-2.6); Osmolality,Calculated 292 (280-300); Potassium 3.5 mEq/L (3.5-5.1); Sodium 138 mEq/L (136-145); Transferrin 199 mg/dL (203-362); eGFR For African Americans > 60 (> 60); eGFR For Non-African Americans > 60 (> 60)
[2017-08-18 06:24] LABS: Folate > 22.3 ng/mL (3.0-16.0); Vitamin B12 583 pg/mL (250-1100)
[2017-08-18 06:35] LABS: Neutrophils # 6.9 K/mcL (1.6-8.9)
[2017-08-18 06:38] LABS: Anisocytosis 1+ (Not Present); Platelet Estimate Normal (Normal)
[2017-08-18 07:56] LABS: Enterococcus by PCR Not Detected (Not Detect); blaKPC Carbapenem-Resist Gene Not Detected (Not Detect); mecA Methicillin-Resist Gene ***DETECTED*** (Not Detect); vanA/B Vancomycin-Resist Genes Not Detected (Not Detect)
[2017-08-18 07:57] LABS: Acinetobacter baumannii by PCR Not Detected (Not Detect); Candida albicans by PCR Not Detected (Not Detect); Candida glabrata by PCR Not Detected (Not Detect); Candida krusei by PCR Not Detected (Not Detect); Candida parapsilosis by PCR Not Detected (Not Detect); Candida tropicalis by PCR Not Detected (Not Detect); Escherichia coli by PCR Not Detected (Not Detect); Klebsiella oxytoca by PCR Not Detected (Not Detect); Klebsiella pneumoniae by PCR Not Detected (Not Detect); Pseudomonas aeruginosa by PCR Not Detected (Not Detect); Serratia marcescens by PCR Not Detected (Not Detect); Staphylococcus aureus by PCR Not Detected (Not Detect); Streptococcus agalactiae(B)PCR Not Detected (Not Detect); Streptococcus by PCR Not Detected (Not Detect); Streptococcus pneumoniae PCR Not Detected (Not Detect); Streptococcus pyogenes (A) PCR Not Detected (Not Detect)
[2017-08-18] MEDS: Budesonide/Formoterol 80/4.5 MDI IH SCH ×2 (07:57→19:22)
[2017-08-18] MEDS ORDERED: CALCIUM CARBONATE PO SCH (09:00)
[2017-08-18] MEDS ORDERED: NON-FORMULARY MEDICATION 1 EACH EACH (Fluticasone/Vilanterol [Breo Ellipta 200-25 Mcg Inh] IH SCH (09:00)
[2017-08-18] MEDS ORDERED: VITAMIN D2 PO SCH (09:00)
[2017-08-18] MEDS: predniSONE 20 MG TABLET PO SCH ×2 (09:06→23:14)
[2017-08-18] MEDS: Vancomycin 500 MG in 0.9 % Sodium Chloride Mini Bag 100 ML IVPB SCH ×2 (11:47→23:15)
[2017-08-18] MEDS ORDERED: Vancomycin 500 MG in 0.9 % Sodium Chloride Mini Bag 100 ML IVPB SCH (13:00)
--- NOTE | 2017-08-18 15:50 | Internal Med Progress Note ---
Date of Encounter: 08/18/17 Time of Encounter: 09:00 - Assessment and plan (1) Pneumonia Current Visit: Yes Status: Acute Assessment and plan: Chest x-ray shows possible left lower lobe pneumonia. Patient is from long- term care facility. Continue broad-spectrum IV antibiotics-vancomycin and cefepime for healthcare associated pneumonia. 2 out of 2 blood cultures grew gram-positive cocci, serology positive for Staphylococcus species, methicillin- resistant gene positive, could be epidermidis/contaminant. Will repeat blood cultures. Urine legionella Ag negative; and strep pneumonia positive; Continue supportive care and supplemental oxygen. Qualifiers: Pneumonia type: due to Pneumococcus Laterality: left Lung location: lower lobe of lung Qualified Code(s): J13 - Pneumonia due to Streptococcus pneumoniae (2) UTI (urinary tract infection) Current Visit: Yes Status: Acute Assessment and plan: Urinalysis with moderate leukocyte esterase, 50-100 WBC and many bacteria. Preliminary urine culture grows gram-negative rods. Continue IV antibiotics as below. Qualifiers: Urinary tract infection type: acute cystitis Hematuria presence: without hematuria Qualified Code(s): N30.00 - Acute cystitis without hematuria (3) COPD (chronic obstructive pulmonary disease) Current Visit: Yes Status: Chronic Assessment and plan: Not in acute exacerbation. Continue when necessary breathing treatments and supplemental oxygen. Qualifiers: COPD type: chronic bronchitis Chronic bronchitis type: simple Qualified Code(s): J41.0 - Simple chronic bronchitis (4) HTN (hypertension) Current Visit: Yes Status: Chronic Assessment and plan: Blood pressure elevated associated with tachycardia. Resume home medications including beta bertha. Monitor closely. Qualifiers: Hypertension type: essential hypertension Qualified Code(s): I10 - Essential (primary) hypertension (5) Malnutrition Current Visit: Yes Status: Chronic Qualifiers: Malnutrition type: protein-calorie malnutrition Protein-calorie malnutrition severity: severe Qualified Code(s): E43 - Unspecified severe protein-calorie malnutrition (6) Dementia Current Visit: Yes Status: Chronic Qualifiers: Dementia type: Alzheimer's disease Alzheimer's disease onset: other onset Dementia behavioral disturbance: without behavioral disturbance Qualified Code(s): G30.8 - Other Alzheimer's disease; F02.80 - Dementia in other diseases classified elsewhere without behavioral disturbance (7) Elevated troponin Current Visit: Yes Status: Acute Assessment and plan: Likely demand ischemia due to underlying infection and hypoxia. Currently normalized. - Time Spent With Patient Total time spent is greater than 50% in coordination of care (as documented) at patient's floor/unit and/or counseling patient: - Subjective Interval history: Patient reports feeling well, cannot provide further history due to dementia. Able to tell me her name but does not know where she is on the reason for admission. - Constitutional Vitals: Temp Pulse Resp BP Pulse Ox 97.7 F 120 18 158/92 95 08/18/17 11:00 08/18/17 11:00 08/18/17 11:00 08/18/17 11:00 08/18/17 11:00 General appearance: Present: cachectic, A&O X 1. Absent: answers questions appropriately - Respiratory Respiratory exam: Present: CTAB (coarse breath sounds B/L). Absent: accessory muscle use, rales, rhonchi, wheezes - Cardiovascular Cardiovascular exam: Present: RRR, +S1, +S2, tachycardia. Absent: diastolic murmur, gallop, rubs, systolic murmur - GI/Abdominal GI/Abdominal exam: Present: normal bowel sounds, soft, no peritoneal signs. Absent: distended, tenderness - Extremities Exam Extremities exam: Present: full ROM, warm, radial pulses palpable and symmetrical. Absent: calf tenderness, cyanotic, pedal edema - Neurological Exam Neurological exam: Present: altered, CN II-XII intact, no focal deficits. Absent: pronater drift, facial droop, speech deficit Internal Medicine: Result - Labs CBC & Chem 7: 08/18/17 05:18 08/18/17 05:18 Labs: Short CBC 08/18/17 Range/Units 05:18 WBC 7.8 (4.3-11.1) K/mcL Hgb 7.7 L (11.5-15.4) g/dL Hct 25.6 L (35.3-44.9) % Plt Count 245 (140-400) K/mcL Neutrophils # 6.9 (1.6-8.9) K/mcL BMP 08/18/17 05:18 Sodium 138 Potassium 3.5 Chloride 109 H Carbon Dioxide 22 L BUN 19 Creatinine 0.34 L Glucose 157 H Calcium 7.9 L Cardiac Enzymes 08/17/17 08/18/17 Range/Units 18:32 00:16 Troponin I 0.05 H* 0.03 (< 0.04) ng/mL - ABG Interpretation ABG results: PT/INR, D-dimer PT 16.0 Seconds (9.4-12.1) H 08/17/17 10:28 Consult Discharge Plan - Plan Referrals: NONE,PCP [Primary Care Provider] - (Patient is from [facility])
[2017-08-18] MEDS ORDERED: Ipratropium/Albuterol Neb 3 ML IH PRN (15:59)
[2017-08-18] MEDS: Ringers Solution, Lactated 1,000 ML IVC SCH (16:55)
[2017-08-19 05:58] LABS: Eosinophils % 0.1 %; Hematocrit 25.3 % (35.3-44.9); Hemoglobin 7.7 g/dL (11.5-15.4); Immature Granulocytes % 0.2 % (0-4); Lymphocytes # 1.1 K/mcL (0.6-4.6); Lymphocytes % 12.2 %; Mean Corpuscular HGB Conc 30.4 g/dL (31.6-35.5); Mean Corpuscular Hemoglobin 22.8 pg (28.0-33.3); Mean Corpuscular Volume 74.9 fL (83.0-100.0); Mean Platelet Volume 8.9 fL (9.4-12.4); Monocytes # 0.3 K/mcL (0.0-1.3); Monocytes % 3.5 %; Neutrophils # 7.5 K/mcL (1.6-8.9); Platelet Count 312 K/mcL (140-400); Red Blood Count 3.38 M/mcL (3.82-4.97); Red Cell Distribution Width 18.3 % (11.5-14.5)
[2017-08-19 06:12] LABS: BUN/Creatinine Ratio 37 (6-26); Blood Urea Nitrogen 11 mg/dL (8-23); Calcium 7.9 mg/dL (8.6-10.3); Carbon Dioxide 26 mEq/L (23-29); Chloride 101 mEq/L (98-107); Glucose 108 mg/dL (70-105); Osmolality,Calculated 280 (280-300); Potassium 3.3 mEq/L (3.5-5.1); Sodium 135 mEq/L (136-145); eGFR For African Americans > 60 (> 60); eGFR For Non-African Americans > 60 (> 60)
[2017-08-19] MEDS: Budesonide/Formoterol 80/4.5 MDI IH SCH ×2 (07:21→23:12)
[2017-08-19] MEDS: Cefepime HCl 2,000 MG in Water for inj. (sterile) 20 ML 10 ML IVP SCH (07:48)
[2017-08-19] MEDS ORDERED: Aminoglycoside Consult 1 EACH MC ONE (08:03)
[2017-08-19] MEDS: predniSONE 20 MG TABLET PO SCH ×2 (08:32→21:21)
[2017-08-19] MEDS: Cholecalciferol (D-3) 1,000 UNIT TABLET PO SCH (08:32)
[2017-08-19] MEDS: Ertapenem 1,000 MG in 0.9 % Sodium Chloride Mini Bag 100 ML IVPB SCH (09:27)
[2017-08-19] MEDS ORDERED: Furosemide 20 MG/2 ML VIAL IVP ONE (11:27)
[2017-08-19] MEDS ORDERED: 0.9 % Sodium Chloride 250 ML ONE (11:41)
[2017-08-19] MEDS: Vancomycin 500 MG in 0.9 % Sodium Chloride Mini Bag 100 ML IVPB SCH (11:51)
--- NOTE | 2017-08-19 15:46 | Internal Med Progress Note ---
Date of Encounter: 08/19/17 Time of Encounter: 10:00 - Assessment and plan (1) Pneumonia Current Visit: Yes Status: Acute Assessment and plan: Chest x-ray shows possible left lower lobe pneumonia. Patient is from long- term care facility. Urine strep pneumonia Ag positive; Antibiotics have been changed to vancomycin and ertapenem today due to positive urine cultures, as mentioned below. 2 out of 2 blood cultures grew gram-positive cocci, serology positive for Staphylococcus species, methicillin-resistant gene positive, could be epidermidis/contaminant. Preliminary repeat blood cultures so far negative . Continue supportive care and supplemental oxygen. Qualifiers: Pneumonia type: due to Pneumococcus Laterality: left Lung location: lower lobe of lung Qualified Code(s): J13 - Pneumonia due to Streptococcus pneumoniae (2) UTI (urinary tract infection) Current Visit: Yes Status: Acute Assessment and plan: Urinalysis with moderate leukocyte esterase, 50-100 WBC and many bacteria. Preliminary urine culture grows ESBL Escherichia coli, gram-positive cocci possibly enterococcus. We will change antibiotics to IV ertapenem and vancomycin. Follow up final urine culture. Qualifiers: Urinary tract infection type: acute cystitis Hematuria presence: without hematuria Qualified Code(s): N30.00 - Acute cystitis without hematuria (3) COPD (chronic obstructive pulmonary disease) Current Visit: Yes Status: Chronic Assessment and plan: Not in acute exacerbation. Continue when necessary breathing treatments and supplemental oxygen. Qualifiers: COPD type: chronic bronchitis Chronic bronchitis type: simple Qualified Code(s): J41.0 - Simple chronic bronchitis (4) HTN (hypertension) Current Visit: Yes Status: Chronic Qualifiers: Hypertension type: essential hypertension Qualified Code(s): I10 - Essential (primary) hypertension (5) Malnutrition Current Visit: Yes Status: Chronic Qualifiers: Malnutrition type: protein-calorie malnutrition Protein-calorie malnutrition severity: severe Qualified Code(s): E43 - Unspecified severe protein-calorie malnutrition (6) Dementia Current Visit: Yes Status: Chronic Qualifiers: Dementia type: Alzheimer's disease Alzheimer's disease onset: other onset Dementia behavioral disturbance: without behavioral disturbance Qualified Code(s): G30.8 - Other Alzheimer's disease; F02.80 - Dementia in other diseases classified elsewhere without behavioral disturbance (7) Elevated troponin Current Visit: Yes Status: Resolved (8) Anemia Current Visit: Yes Status: Chronic Assessment and plan: Acute on chronic microcytic anemia. Iron profile consistent with iron deficiency anemia. Hemoglobin around 7.7, will give 1 unit PRBC with IV Lasix posttransfusion. Continue oral ferrous sulfate supplements. Qualifiers: Anemia type: iron deficiency Iron deficiency anemia type: unspecified iron deficiency Qualified Code(s): D50.9 - Iron deficiency anemia, unspecified - Time Spent With Patient Total time spent is greater than 50% in coordination of care (as documented) at patient's floor/unit and/or counseling patient: - Subjective Interval history: Patient is only able to tell me her name, unable to provide any history due to dementia. - Constitutional Vitals: Temp Pulse Resp BP Pulse Ox 97.7 F 102 18 134/85 95 08/19/17 13:57 08/19/17 13:57 08/19/17 13:57 08/19/17 13:57 08/19/17 13:57 General appearance: Present: cachectic, A&O X 1. Absent: answers questions appropriately - Respiratory Respiratory exam: Present: CTAB (coarse rhonchurous breath sounds), rhonchi. Absent: accessory muscle use, rales, wheezes - Cardiovascular Cardiovascular exam: Present: RRR, +S1, +S2. Absent: diastolic murmur, gallop, rubs, systolic murmur - GI/Abdominal GI/Abdominal exam: Present: normal bowel sounds, soft, no peritoneal signs. Absent: distended, tenderness - Extremities Exam Extremities exam: Present: warm, radial pulses palpable and symmetrical. Absent : calf tenderness, cyanotic, pedal edema - Neurological Exam Neurological exam: Present: altered, no focal deficits. Absent: pronater drift , facial droop, speech deficit Internal Medicine: Result - Labs CBC & Chem 7: 08/19/17 05:22 08/19/17 05:22 Labs: Short CBC 08/19/17 Range/Units 05:22 WBC 9.0 (4.3-11.1) K/mcL Hgb 7.7 L (11.5-15.4) g/dL Hct 25.3 L (35.3-44.9) % Plt Count 312 (140-400) K/mcL Neutrophils # 7.5 (1.6-8.9) K/mcL BMP 08/19/17 05:22 Sodium 135 L Potassium 3.3 L Chloride 101 Carbon Dioxide 26 BUN 11 Creatinine 0.30 L Glucose 108 H Calcium 7.9 L - ABG Interpretation ABG results: PT/INR, D-dimer PT 16.0 Seconds (9.4-12.1) H 08/17/17 10:28 Consult Discharge Plan - Plan Referrals: NONE,PCP [Primary Care Provider] - (Patient is from [facility])
[2017-08-20] MEDS: Vancomycin 500 MG in 0.9 % Sodium Chloride Mini Bag 100 ML IVPB SCH (00:45)
[2017-08-20] MEDS: Budesonide/Formoterol 80/4.5 MDI IH SCH ×2 (07:29→21:15)
[2017-08-20 07:50] LABS: Eosinophils % 0.1 %; Immature Granulocytes % 0.9 % (0-4); Lymphocytes # 1.6 K/mcL (0.6-4.6); Lymphocytes % 23.3 %; Mean Corpuscular HGB Conc 31.9 g/dL (31.6-35.5); Mean Corpuscular Hemoglobin 23.6 pg (28.0-33.3); Mean Corpuscular Volume 73.8 fL (83.0-100.0); Mean Platelet Volume 8.7 fL (9.4-12.4); Monocytes # 0.6 K/mcL (0.0-1.3); Monocytes % 8.4 %; Neutrophils # 4.7 K/mcL (1.6-8.9); Platelet Count 289 K/mcL (140-400); Red Blood Count 4.88 M/mcL (3.82-4.97); Red Cell Distribution Width 17.4 % (11.5-14.5); Segmented Neutrophils % 67.3 %
[2017-08-20 07:54] LABS: BUN/Creatinine Ratio 38 (6-26); Blood Urea Nitrogen 13 mg/dL (8-23); Calcium 8.3 mg/dL (8.6-10.3); Carbon Dioxide 24 mEq/L (23-29); Chloride 95 mEq/L (98-107); Glucose 118 mg/dL (70-105); Osmolality,Calculated 273 (280-300); Potassium 2.8 mEq/L (3.5-5.1); Sodium 131 mEq/L (136-145); eGFR For African Americans > 60 (> 60); eGFR For Non-African Americans > 60 (> 60)
[2017-08-20 08:06] LABS: Hemoglobin 11.5 g/dL (11.5-15.4)
[2017-08-20 08:27] LABS: Anisocytosis 1+ (Not Present); Platelet Estimate Normal (Normal)
[2017-08-20] MEDS: Potassium Chloride Elixir 20 MEQ/15 ML UDC PO SCH ×2 (09:42→14:14)
[2017-08-20] MEDS: Cholecalciferol (D-3) 1,000 UNIT TABLET PO SCH (09:43)
[2017-08-20] MEDS: predniSONE 20 MG TABLET PO SCH ×2 (09:43→22:43)
[2017-08-20] MEDS: Ertapenem 1,000 MG in 0.9 % Sodium Chloride Mini Bag 100 ML IVPB SCH (10:11)
--- NOTE | 2017-08-20 13:42 | Internal Med Progress Note ---
Date of Encounter: 08/20/17 Time of Encounter: 09:40 - Assessment and plan (1) Pneumonia Current Visit: Yes Status: Acute Assessment and plan: Chest x-ray shows possible left lower lobe pneumonia. Patient is from long- term care facility. Urine strep pneumonia Ag positive; continue vancomycin and ertapenem due to positive urine cultures, as mentioned below. 2 out of 2 blood cultures grew gram-positive cocci, serology positive for Staphylococcus species , methicillin-resistant gene positive, could be epidermidis/contaminant. Repeat blood cultures so far negative . Continue supportive care and supplemental oxygen. Qualifiers: Pneumonia type: due to Pneumococcus Laterality: left Lung location: lower lobe of lung Qualified Code(s): J13 - Pneumonia due to Streptococcus pneumoniae (2) UTI (urinary tract infection) Current Visit: Yes Status: Acute Assessment and plan: Urinalysis with moderate leukocyte esterase, 50-100 WBC and many bacteria. Urine culture grows ESBL Escherichia coli, amp sensitive enterococcus fecalis. We will change antibiotics to IV ertapenem and Ampicillin, discontinue Vancomycin. Qualifiers: Urinary tract infection type: acute cystitis Hematuria presence: without hematuria Qualified Code(s): N30.00 - Acute cystitis without hematuria (3) COPD (chronic obstructive pulmonary disease) Current Visit: Yes Status: Chronic Qualifiers: COPD type: chronic bronchitis Chronic bronchitis type: simple Qualified Code(s): J41.0 - Simple chronic bronchitis (4) HTN (hypertension) Current Visit: Yes Status: Chronic Qualifiers: Hypertension type: essential hypertension Qualified Code(s): I10 - Essential (primary) hypertension (5) Malnutrition Current Visit: Yes Status: Chronic Qualifiers: Malnutrition type: protein-calorie malnutrition Protein-calorie malnutrition severity: severe Qualified Code(s): E43 - Unspecified severe protein-calorie malnutrition (6) Dementia Current Visit: Yes Status: Chronic Qualifiers: Dementia type: Alzheimer's disease Alzheimer's disease onset: other onset Dementia behavioral disturbance: without behavioral disturbance Qualified Code(s): G30.8 - Other Alzheimer's disease; F02.80 - Dementia in other diseases classified elsewhere without behavioral disturbance (7) Elevated troponin Current Visit: Yes Status: Resolved (8) Anemia Current Visit: Yes Status: Chronic Assessment and plan: Acute on chronic microcytic anemia. Iron profile consistent with iron deficiency anemia. Hemoglobin improved to 11.5 s/p 1 unit PRBC. Continue oral ferrous sulfate supplements. Qualifiers: Anemia type: iron deficiency Iron deficiency anemia type: unspecified iron deficiency Qualified Code(s): D50.9 - Iron deficiency anemia, unspecified (9) Hypokalemia Current Visit: Yes Status: Acute Assessment and plan: supplement with PO and IV KCl and add MgSO4; - Time Spent With Patient Total time spent is greater than 50% in coordination of care (as documented) at patient's floor/unit and/or counseling patient: - Subjective Interval history: Patient is only able to tell me her name, unable to provide any history due to dementia. Says Yes to everything; - Constitutional Vitals: Temp Pulse Resp BP Pulse Ox 96.9 F L 109 16 159/109 95 08/20/17 11:20 08/20/17 11:20 08/20/17 11:20 08/20/17 11:20 08/20/17 11:20 General appearance: Present: cachectic, A&O X 1. Absent: answers questions appropriately - Respiratory Respiratory exam: Present: CTAB (coarse breath sounds B/L). Absent: accessory muscle use, rales, rhonchi, wheezes - Cardiovascular Cardiovascular exam: Present: RRR, +S1, +S2. Absent: diastolic murmur, gallop, rubs, systolic murmur - Extremities Exam Extremities exam: Present: full ROM, warm, radial pulses palpable and symmetrical. Absent: calf tenderness, cyanotic, pedal edema - Neurological Exam Neurological exam: Present: altered, no focal deficits. Absent: pronater drift , facial droop, speech deficit Internal Medicine: Result - Labs CBC & Chem 7: 08/20/17 06:58 08/20/17 06:58 Labs: Short CBC 08/20/17 Range/Units 06:58 WBC 7.0 (4.3-11.1) K/mcL Hgb 11.5 D (11.5-15.4) g/dL Hct 36.0 (35.3-44.9) % Plt Count 289 (140-400) K/mcL Neutrophils # 4.7 (1.6-8.9) K/mcL BMP 08/20/17 06:58 Sodium 131 L Potassium 2.8 L Chloride 95 L Carbon Dioxide 24 BUN 13 Creatinine 0.34 L Glucose 118 H Calcium 8.3 L - ABG Interpretation ABG results: PT/INR, D-dimer PT 16.0 Seconds (9.4-12.1) H 08/17/17 10:28 Consult Discharge Plan - Plan Referrals: NONE,PCP [Primary Care Provider] - (Patient is from [facility])
[2017-08-20] MEDS: Ampicillin 2 GM in 0.9 % Sodium Chloride Mini Bag 100 ML IVPB SCH ×2 (14:16→17:52)
[2017-08-21] MEDS: Ampicillin 2 GM in 0.9 % Sodium Chloride Mini Bag 100 ML IVPB SCH ×5 (00:04→23:36)
[2017-08-21 05:41] LABS: BUN/Creatinine Ratio 35 (6-26); Blood Urea Nitrogen 13 mg/dL (8-23); Calcium 7.6 mg/dL (8.6-10.3); Carbon Dioxide 27 mEq/L (23-29); Chloride 98 mEq/L (98-107); Glucose 116 mg/dL (70-105); Magnesium 2.1 mg/dL (1.6-2.6); Osmolality,Calculated 271 (280-300); Potassium 3.5 mEq/L (3.5-5.1); Sodium 130 mEq/L (136-145); eGFR For African Americans > 60 (> 60); eGFR For Non-African Americans > 60 (> 60)
[2017-08-21] MEDS: predniSONE 20 MG TABLET PO SCH ×2 (07:41→20:11)
[2017-08-21] MEDS: Cholecalciferol (D-3) 1,000 UNIT TABLET PO SCH (07:41)
[2017-08-21] MEDS: Ertapenem 1,000 MG in 0.9 % Sodium Chloride Mini Bag 100 ML IVPB SCH (07:42)
[2017-08-21 08:49] LABS: Basophils % 0.1 %; Eosinophils % 0.1 %; Hematocrit 32.7 % (35.3-44.9); Hemoglobin 10.3 g/dL (11.5-15.4); Immature Granulocytes % 1.2 % (0-4); Lymphocytes # 2.1 K/mcL (0.6-4.6); Lymphocytes % 24.6 %; Mean Corpuscular HGB Conc 31.5 g/dL (31.6-35.5); Mean Corpuscular Hemoglobin 23.8 pg (28.0-33.3); Mean Corpuscular Volume 75.5 fL (83.0-100.0); Mean Platelet Volume 8.4 fL (9.4-12.4); Monocytes # 0.7 K/mcL (0.0-1.3); Monocytes % 8.7 %; Neutrophils # 5.5 K/mcL (1.6-8.9); Platelet Count 252 K/mcL (140-400); Red Blood Count 4.33 M/mcL (3.82-4.97); Red Cell Distribution Width 17.6 % (11.5-14.5); Segmented Neutrophils % 65.3 %
[2017-08-21] MEDS: Budesonide/Formoterol 80/4.5 MDI IH SCH ×2 (10:00→19:57)
--- NOTE | 2017-08-21 14:43 | Internal Med Progress Note ---
Date of Encounter: 08/21/17 Time of Encounter: 09:30 - Assessment and plan (1) Pneumonia Current Visit: Yes Status: Acute Assessment and plan: Chest x-ray shows possible left lower lobe pneumonia. Urine strep pneumonia Ag positive; continue Ampicillin and ertapenem due to positive urine cultures, as mentioned below. 2 out of 2 blood cultures grew gram-positive cocci, serology positive for Staphylococcus species, methicillin- resistant Staph hominis, likely contaminant. Repeat blood cultures negative . Continue supportive care and supplemental oxygen. Qualifiers: Pneumonia type: due to Pneumococcus Laterality: left Lung location: lower lobe of lung Qualified Code(s): J13 - Pneumonia due to Streptococcus pneumoniae (2) UTI (urinary tract infection) Current Visit: Yes Status: Acute Assessment and plan: Urinalysis with moderate leukocyte esterase, 50-100 WBC and many bacteria. Urine culture grows ESBL Escherichia coli, amp sensitive enterococcus fecalis. Continue IV ertapenem and Ampicillin. Qualifiers: Urinary tract infection type: acute cystitis Hematuria presence: without hematuria Qualified Code(s): N30.00 - Acute cystitis without hematuria (3) COPD (chronic obstructive pulmonary disease) Current Visit: Yes Status: Chronic Qualifiers: COPD type: chronic bronchitis Chronic bronchitis type: simple Qualified Code(s): J41.0 - Simple chronic bronchitis (4) HTN (hypertension) Current Visit: Yes Status: Chronic Assessment and plan: Blood pressure well controlled. Continue increased dose of beta bertha. Monitor closely. Qualifiers: Hypertension type: essential hypertension Qualified Code(s): I10 - Essential (primary) hypertension (5) Malnutrition Current Visit: Yes Status: Chronic Assessment and plan: Due to significant dementia and poor oral intake. Bedside swallow evaluation was completed by TWISTER DOFFER, cleared for mechanical soft diet with thin liquids. Aspiration precautions. Assisted feeding. Qualifiers: Malnutrition type: protein-calorie malnutrition Protein-calorie malnutrition severity: severe Qualified Code(s): E43 - Unspecified severe protein-calorie malnutrition (6) Dementia Current Visit: Yes Status: Chronic Qualifiers: Dementia type: Alzheimer's disease Alzheimer's disease onset: other onset Dementia behavioral disturbance: without behavioral disturbance Qualified Code(s): G30.8 - Other Alzheimer's disease; F02.80 - Dementia in other diseases classified elsewhere without behavioral disturbance (7) Elevated troponin Current Visit: Yes Status: Resolved (8) Anemia Current Visit: Yes Status: Chronic Qualifiers: Anemia type: iron deficiency Iron deficiency anemia type: unspecified iron deficiency Qualified Code(s): D50.9 - Iron deficiency anemia, unspecified (9) Hypokalemia Current Visit: Yes Status: Resolved - Time Spent With Patient Total time spent is greater than 50% in coordination of care (as documented) at patient's floor/unit and/or counseling patient: - Subjective Interval history: Patient is only able to tell me her name, unable to provide any history due to dementia. Says Yes to everything; - Constitutional Vitals: Temp Pulse Resp BP Pulse Ox 99.0 F 80 19 156/87 94 08/21/17 14:29 08/21/17 14:29 08/21/17 14:29 08/21/17 14:29 08/21/17 14:29 General appearance: Present: cachectic, A&O X 1. Absent: answers questions appropriately - Respiratory Respiratory exam: Present: CTAB (coarse breath sounds B/L). Absent: accessory muscle use, rales, rhonchi, wheezes - Cardiovascular Cardiovascular exam: Present: RRR, +S1, +S2. Absent: diastolic murmur, gallop, rubs, systolic murmur Internal Medicine: Result - Labs CBC & Chem 7: 08/21/17 08:38 08/21/17 05:11 Labs: Short CBC 08/21/17 Range/Units 08:38 WBC 8.4 (4.3-11.1) K/mcL Hgb 10.3 L (11.5-15.4) g/dL Hct 32.7 L (35.3-44.9) % Plt Count 252 (140-400) K/mcL Neutrophils # 5.5 (1.6-8.9) K/mcL BMP 08/21/17 05:11 Sodium 130 L Potassium 3.5 Chloride 98 Carbon Dioxide 27 BUN 13 Creatinine 0.37 L Glucose 116 H Calcium 7.6 L - ABG Interpretation ABG results: PT/INR, D-dimer PT 16.0 Seconds (9.4-12.1) H 08/17/17 10:28 Consult Discharge Plan - Plan Referrals: NONE,PCP [Primary Care Provider] - (Patient is from [facility])
--- NOTE | 2017-08-21 20:14 | Electrocardiograph Report ---
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
--- NOTE | 2017-08-21 20:43 | Electrocardiograph Report ---
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
[2017-08-22] MEDS: Ampicillin 2 GM in 0.9 % Sodium Chloride Mini Bag 100 ML IVPB SCH (06:05)
[2017-08-22 07:17] VITALS: BP 139/76
[2017-08-22] MEDS: Budesonide/Formoterol 80/4.5 MDI IH SCH (07:50)
[2017-08-22] MEDS: predniSONE 20 MG TABLET PO SCH (08:02)
[2017-08-22] MEDS: Cholecalciferol (D-3) 1,000 UNIT TABLET PO SCH (08:02)
[2017-08-22] MEDS: Ertapenem 1,000 MG in 0.9 % Sodium Chloride Mini Bag 100 ML IVPB SCH (08:03)
[2017-08-22 09:22] LABS: Mycoplasma pneumoniae IgG 0.14 U/L (<=0.09)
--- NOTE | 2017-08-22 09:23 | Discharge Summary ---
- NOTES TO OUTPATIENT PROVIDER Notes to Outpatient Provider: Enterococcus UTI and PNA; poor oral intake and failure to thrive due to dementia; Orders not resulted at time of discharge: Pending orders 08/18/17 16:16 Culture,Blood [BC] Routine Date of Encounter: 08/22/17 Time of Encounter: 09:20 - Discharge Diagnosis (1) Pneumonia Priority: Primary Status: Acute Qualifiers: Pneumonia type: due to Pneumococcus Laterality: left Lung location: lower lobe of lung Qualified Code(s): J13 - Pneumonia due to Streptococcus pneumoniae (2) UTI (urinary tract infection) Priority: Primary Status: Acute Qualifiers: Urinary tract infection type: acute cystitis Hematuria presence: without hematuria Qualified Code(s): N30.00 - Acute cystitis without hematuria (3) COPD (chronic obstructive pulmonary disease) Priority: Secondary Status: Chronic Qualifiers: COPD type: chronic bronchitis Chronic bronchitis type: simple Qualified Code(s): J41.0 - Simple chronic bronchitis (4) HTN (hypertension) Priority: Secondary Status: Chronic Qualifiers: Hypertension type: essential hypertension Qualified Code(s): I10 - Essential (primary) hypertension (5) Malnutrition Priority: Secondary Status: Chronic Qualifiers: Malnutrition type: protein-calorie malnutrition Protein-calorie malnutrition severity: severe Qualified Code(s): E43 - Unspecified severe protein-calorie malnutrition (6) Dementia Priority: Secondary Status: Chronic Qualifiers: Dementia type: Alzheimer's disease Alzheimer's disease onset: other onset Dementia behavioral disturbance: without behavioral disturbance Qualified Code(s): G30.8 - Other Alzheimer's disease; F02.80 - Dementia in other diseases classified elsewhere without behavioral disturbance (7) Elevated troponin Priority: Primary Status: Resolved (8) Anemia Priority: Secondary Status: Chronic Qualifiers: Anemia type: iron deficiency Iron deficiency anemia type: unspecified iron deficiency Qualified Code(s): D50.9 - Iron deficiency anemia, unspecified (9) Hypokalemia Priority: Primary Status: Resolved Hospital course: Ms. Choi is a 72 year old female with the above medical problems, who is a long-term prison resident. She was admitted with poor oral intake, generalized weakness and shortness of breath. Initial chest x-ray showed possible left lower lobe pneumonia. She was started on broad-spectrum IV antibiotics for possible healthcare associated pneumonia. 2 out of 2 initial blood cultures grew Staphylococcus hominis, likely contamination. Repeat blood cultures were negative. Urine legionella antigen was negative, urine Streptococcus pneumoniae antigen positive. She was also noted to have UTI with urine culture subsequently growing ESBL Escherichia coli, ampicillin sensitive Enterococcus faecalis. Antibiotics were changed to IV ertapenem and ampicillin. Patient was evaluated by BREAKER UNIT ASSEMBLER at bedside, had no dysphagia, cleared for mechanical soft diet and thin liquids. However, patient has very poor oral intake due to advanced dementia and she does require aspiration precautions and assisted feeds. She is otherwise medically stable for [facility] back [facility]. Discharge discussed with: patient, nurse - Time Spent with Patient Total time spent providing and/or coordinating discharge services: Greater than 30 minutes (45 min) - Discharge Medications Prescriptions: Ampicillin Trihydrate 500 mg PO Q6H #20 capsule Ertapenem [INVanz] 1,000 mg IVPB DAILY #6 vial Home Medications: Alendronate Sodium [Fosamax] 70 mg PO RAYMUNDO 10/26/16 [History] Benztropine [Cogentin] 1 mg PO HS 10/26/16 [History] Calcium Carbonate/Vitamin D2 [Ra Oyster Shell-Vitamin D Tab] 1 tab PO DAILY [History] Acetaminophen [Tylenol] 650 mg PO Q6HR PRN #0 tab 10/28/16 [Rx] Potassium Chloride [Klor-Con 10] 10 meq PO DAILY #30 10/28/16 [Rx] Guaifenesin [Mucinex] 600 mg PO Q12H 02/08/17 [History] Lisinopril [Zestril] 10 mg PO DAILY 02/08/17 [History] Aspirin [Lo-Dose Aspirin EC] 81 mg PO DAILY 08/17/17 [History] Diphenoxylate/Atropine [Lomotil 2.5 mg/0.025 mg] 2 tab PO QID PRN 08/17/17 [ History] Ferrous Sulfate [Iron] 325 mg PO DAILY 08/17/17 [History] Fluticasone/Vilanterol [Breo Ellipta 200-25 Mcg INH] 1 puff IH DAILY 08/17/17 [ History] Ipratropium/Albuterol Neb [Duoneb] 3 ml IH Q6HR PRN 08/17/17 [History] Omeprazole [PriLOSEC] 20 mg PO DAILY 08/17/17 [History] predniSONE [PredniSONE] 10 mg PO BID 08/17/17 [History] Ampicillin Trihydrate 500 mg PO Q6H #20 capsule 08/22/17 [Rx] Ertapenem [INVanz] 1,000 mg IVPB DAILY #6 vial 08/22/17 [Rx] Metoprolol [Lopressor] 25 mg PO BID tablet 08/22/17 [Rx] Allergies/Adverse Reactions: 3 Allergy/AdvReac Type Severity Reaction Status Date / Time No Known Allergies Allergy Verified 01/13/17 08:27 Date of admission: 08/17/17 13:16 Primary care physician: PCP NONE Consults: 08/17/17 13:26 consult to purchasing internship [Consult to Nutrition] [CONS] Routine Comment: Consulting Provider: NUTRITION Reason for Dietary Consult: PO Supplementation 08/18/17 07:52 Consult to Hazardous Waste Management Specialist [CONS] Routine Reason for SW Consult: rtn to [facility] Discharging clinician: Divina Ayala Anticipated date of discharge: 08/22/17 - Constitutional Vitals: Temp Pulse Resp BP Pulse Ox 97.9 F 66 16 139/76 94 08/22/17 07:14 08/22/17 07:14 08/22/17 07:14 08/22/17 07:14 08/22/17 07:52 General appearance: Present: cachectic, A&O X 1. Absent: answers questions appropriately - Cardiovascular Cardiovascular exam: Present: RRR, +S1, +S2. Absent: diastolic murmur, gallop, rubs, systolic murmur - Patient Status Disposition: Transfer SNF Condition: Fair Functional capacity at discharge: bed bound Overall status at discharge: patient is progressing back to baseline - Discharge Instructions Follow Up With: NONE,PCP [Primary Care Provider] - (Patient is from [facility]) Additional Instructions: F/up with PCP in 1-2 weeks - Diet and Activity Activity: as per physical therapy, wear oxygen at all times (PRN to maintain O2 sat>90%) Diet: other (mechanical soft diet, thin liquids) - VTE Documentation of Mechanical Device: Venous foot pump, device
--- NOTE | 2017-08-22 09:29 | Physician Discharge Referral ---
ExtendedCare Referral Info Transfer To: [facility] Provider in Charge: Divina Ayala Provider in Charge after Transfer: PCP Institutional Level of Care: Skilled - Diagnosis (1) Pneumonia Priority: Primary Status: Acute (2) UTI (urinary tract infection) Priority: Primary Status: Acute (3) COPD (chronic obstructive pulmonary disease) Priority: Secondary Status: Chronic (4) HTN (hypertension) Priority: Secondary Status: Chronic (5) Malnutrition Priority: Secondary Status: Chronic (6) Dementia Status: Chronic (7) Elevated troponin Priority: Primary Status: Resolved (8) Anemia Priority: Secondary Status: Chronic (9) Hypokalemia Priority: Primary Status: Resolved Expected Duration of Placement: ocean transportation intermediary Prognosis: Poor - Transfer Medications Prescriptions: Amoxicillin [Amoxil] 500 mg PO Q6H #20 capsule Ertapenem [INVanz] 1,000 mg IVPB DAILY #6 vial Home Medications: Alendronate Sodium [Fosamax] 70 mg PO RAYMUNDO 10/26/16 [History] Benztropine [Cogentin] 1 mg PO HS 10/26/16 [History] Calcium Carbonate/Vitamin D2 [Ra Oyster Shell-Vitamin D Tab] 1 tab PO DAILY [History] Acetaminophen [Tylenol] 650 mg PO Q6HR PRN #0 tab 10/28/16 [Rx] Potassium Chloride [Klor-Con 10] 10 meq PO DAILY #30 10/28/16 [Rx] Guaifenesin [Mucinex] 600 mg PO Q12H 02/08/17 [History] Lisinopril [Zestril] 10 mg PO DAILY 02/08/17 [History] Aspirin [Lo-Dose Aspirin EC] 81 mg PO DAILY 08/17/17 [History] Diphenoxylate/Atropine [Lomotil 2.5 mg/0.025 mg] 2 tab PO QID PRN 08/17/17 [ History] Ferrous Sulfate [Iron] 325 mg PO DAILY 08/17/17 [History] Fluticasone/Vilanterol [Breo Ellipta 200-25 Mcg INH] 1 puff IH DAILY 08/17/17 [ History] Ipratropium/Albuterol Neb [Duoneb] 3 ml IH Q6HR PRN 08/17/17 [History] Omeprazole [PriLOSEC] 20 mg PO DAILY 08/17/17 [History] predniSONE [PredniSONE] 10 mg PO BID 08/17/17 [History] Amoxicillin [Amoxil] 500 mg PO Q6H #20 capsule 08/22/17 [Rx] Ertapenem [INVanz] 1,000 mg IVPB DAILY #6 vial 08/22/17 [Rx] Metoprolol [Lopressor] 25 mg PO BID tablet 08/22/17 [Rx] Allergies/Adverse Reactions: 3 Allergy/AdvReac Type Severity Reaction Status Date / Time No Known Allergies Allergy Verified 01/13/17 08:27 - Respiratory Orders Oxygen / L per min (2L/min via NC) Smoking Cessation: Smoking cessation has been advised. For more information, call the [place] Tobacco Quit Line at 9-331-ACZS-NOW. - Advance Directives Code Status: Full Code - Mobility Orders Bedrest - Rehabiliation Orders Rehab Potential: Poor Rehab Orders: Sternal Precautions, ROM Exercises, Evaluation for Physical Therapy, Evaluation for Occupational Therapy, Evaluation for Speech Therapy - Diet Orders Mechanical Soft, Cardiac CERTIFICATION: I certify that the transfer of the above named patient to an Extended Care Facility is necessary for the continuing treatment of the diagnosis listed. The above information is true and accurate reflection of patient's current condition. Confidential - Redisclosure prohibited without a patient's written consent.
[2017-08-22] MEDS ORDERED: Amoxicillin 500 MG CAPSULE PO SCH (10:00)
== END 2017-08-22 12:27 | DRG 177 ==
LOC: 2ANU 10:03 → EMEROO 10:03 → 2ANU 12:42 → SUATTDRO 13:16
PROVIDERS: ADMIT Family Medicine; ATTEND Internal Medicine

== ENCOUNTER 2017-10-18 19:54 | Inpatient (IN) ==
[2017-10-18 20:31] LABS: Bilirubin,Urine Small (Negative); Blood,Urine Negative (Negative); Glucose,Urine (UA) 500 mg/dL (Normal); Ketones,Urine Negative (Negative); Leukocyte Esterase,Urine Negative (Negative); Nitrite,Urine Negative (Negative); PH,Urine 5.5 pH Units (5.0-8.0); Protein,Urine 30 mg/dL (Neg-Trace); Specific Gravity,Urine 1.024 (1.010-1.025); Urobilinogen,Urine Normal (Normal)
[2017-10-18 20:34] LABS: Squamous Epithelial Cell,Urine Many per lpf (None-Few)
[2017-10-18 20:36] LABS: Clarity,Urine Cloudy (Clear); Color,Urine Yellow (Yellow)
[2017-10-18 20:48] LABS: RBC,Urine 0-3 per hpf (0-3)
[2017-10-18 20:50] LABS: Amorphous Sediment,Urine Many (Few); Bacteria,Urine Moderate per hpf (None-Few); Calcium Oxalate Crystals,Urine Present; Hyaline Casts,Urine Few per lpf (None-Few); Mucus,Urine Many (Few)
--- NOTE | 2017-10-18 20:55 | Emergency Department Note ---
Disposition Clinical Impression: Tachycardia, Multifocal atrial tachycardia, Dehydration Disposition: Admitted As Inpatient Condition: Fair Referrals: NONE,PCP [Primary Care Provider] - Forms: ED Satisfaction Letter, Work/School Release Time of Disposition: 01:58 General Adult HPI - General Chief complaint: ED General Medical Stated complaint: Will not eat Time Seen by Provider: 10/18/17 19:56 Source: family, EMS Limitations: other Nursing Notes Reviewed: Yes Vital Signs Reviewed: Yes - History of Present Illness HPI Narrative: This is a 72-year-old female who has lived in a senior living for at least 6 months who is brought in at the family's request because they say that she has lost significant weight since she arrived at the senior living and that they believe she is not being fed. They are concerned about numerous bruises on her legs, and states she has fallen at the senior living at least twice since admission there. Pain Scale: 0 - Related Data Home Medications Medication Instructions Recorded Confirmed Alendronate Sodium [Fosamax] 70 mg PO RAYMUNDO 10/26/16 08/17/17 Benztropine [Cogentin] 1 mg PO HS 10/26/16 08/17/17 Calcium Carbonate/Vitamin D2 [Ra 1 tab PO DAILY 10/26/16 08/17/17 Oyster Shell-Vitamin D Tab] Guaifenesin [Mucinex] 600 mg PO Q12H 02/08/17 08/17/17 Lisinopril [Zestril] 10 mg PO DAILY 02/08/17 08/17/17 Aspirin [Lo-Dose Aspirin EC] 81 mg PO DAILY 08/17/17 08/17/17 Diphenoxylate/Atropine [Lomotil 2 tab PO QID PRN 08/17/17 08/17/17 2.5 mg/0.025 mg] Ferrous Sulfate [Iron] 325 mg PO DAILY 08/17/17 08/17/17 Fluticasone/Vilanterol [Breo 1 puff IH DAILY 08/17/17 08/17/17 Ellipta 200-25 Mcg INH] Ipratropium/Albuterol Neb [Duoneb] 3 ml IH Q6HR PRN 08/17/17 08/17/17 Omeprazole [PriLOSEC] 20 mg PO DAILY 08/17/17 08/17/17 predniSONE [PredniSONE] 10 mg PO BID 08/17/17 08/17/17 Previous Rx's Medication Instructions Recorded Acetaminophen [Tylenol] 650 mg PO Q6HR PRN #0 tab 10/28/16 Potassium Chloride [Klor-Con 10] 10 meq PO DAILY #30 10/28/16 Ampicillin Trihydrate 500 mg PO Q6H #20 capsule 08/22/17 Ertapenem [INVanz] 1,000 mg IVPB DAILY #6 vial 08/22/17 Metoprolol [Lopressor] 25 mg PO BID tablet 08/22/17 Allergies Allergy/AdvReac Type Severity Reaction Status Date / Time No Known Allergies Allergy Verified 01/13/17 08:27 Limitations: ROS unobtainable due to patients medical condition (Patient is either unwilling or unable to discuss much with me or staff, but) Past Medical History - Past Medical History Medical history: Reports: dementia, hyperlipidemia, hypertension, COPD Surgical history: Reports: other, hysterectomy Psychiatric history: Reports: no psych history - Social History Smoking Status: Former smoker Smokeless Tobacco Status: No Alcohol use: Reports: none Drug use: Reports: none Physical Exam - General Limitations: other (This is a chronically ill-appearing female who appears to have severe dementia, making evaluation more difficult) General appearance: alert (She opens eyes on request will answer simple questions), cachectic - Eye Eye exam: Present: normal appearance, PERRL - Chest Chest inspection: Present: normal inspection, symmetric chest wall rise. Absent : tenderness, rash - Respiratory Respiratory exam: Present: normal lung sounds bilaterally. Absent: respiratory distress, wheezes - Cardiovascular Cardiovascular exam: Present: regular rate, tachycardia, normal heart sounds - Abdominal Exam Abdominal exam: Present: soft, Non-Tender, other (She has dark colored emesis consistent with upper GI bleed) - Extremities Exam Extremities exam: Present: other (Extremities are very thin with very little muscle mass, small scattered areas of ecchymosis) - Neurological Exam Neurological exam: Present: alert, CN II-XII intact - Skin Skin exam: Present: warm, dry Course Course Narrative: This is a very old appearing 72-year-old female who is emaciated and has not been eating. Vital Signs Temperature 98.2 F 10/18/17 20:13 Pulse Rate 134 10/18/17 20:13 Respiratory Rate 16 10/18/17 20:13 Blood Pressure 93/77 10/18/17 20:13 O2 Sat by Pulse Oximetry 100 10/18/17 20:13 Temperature 98.2 F 10/18/17 20:13 Pulse Rate 137 10/19/17 01:37 Respiratory Rate 22 10/19/17 01:37 Blood Pressure 109/79 10/19/17 01:37 O2 Sat by Pulse Oximetry 96 10/19/17 01:37 Oxygen Delivery Oxygen Delivery Nasal Cannula Medical Decision Making - MDM Narrative Medical decision making narrative: This is a 72-year-old female who has an upper GI bleed based on hematemesis. She also has leukocytosis, and elevated BUN him a normal creatinine is probably because of very low body muscle mass, and an unremarkable UA. Zosyn and an IV PPI were given. I discussed her case with the on-call hospitalist, who accepted her for admission - Lab Data Lab results narrative: CBC shows leukocytosis of 20.9 BMP showed BUN elevated at 43 LFT was unremarkable UA was unremarkable Gastroccult was positive Result diagrams: 10/18/17 21:38 10/18/17 21:38 Lab Results 10/18/17 10/18/17 10/18/17 Range/Units 20:19 20:19 21:38 WBC 20.9 H (4.3-11.1) K/mcL RBC 4.57 (3.82-4.97) M/mcL Hgb 11.8 (11.5-15.4) g/dL Hct 35.7 (35.3-44.9) % MCV 78.1 L (83.0-100.0) fL MCH 25.8 L (28.0-33.3) pg MCHC 33.1 (31.6-35.5) g/dL RDW 17.0 H (11.5-14.5) % Plt Count 397 (140-400) K/mcL MPV 9.1 L (9.4-12.4) fL Immature Gran % 1.6 (0-4) % Seg Neutrophils % 83.9 % Lymphocytes % 7.7 % Monocytes % 6.6 % Eosinophils % 0.0 % Basophils % 0.2 % Neutrophils # 17.5 H (1.6-8.9) K/mcL Lymphocytes # 1.6 (0.6-4.6) K/mcL Monocytes # 1.4 H (0.0-1.3) K/mcL Eosinophils # 0.0 (0.0-0.6) K/mcL Basophils # 0.0 (0.0-0.2) K/mcL Sodium (136-145) mEq/L Potassium (3.5-5.1) mEq/L Chloride (98-107) mEq/L Carbon Dioxide (23-29) mEq/L BUN (8-23) mg/dL Creatinine (0.60-1.20) mg/dL Est GFR ( Amer) (> 60) Est GFR (Non-Af Amer) (> 60) BUN/Creatinine Ratio (6-26) Glucose (70-105) mg/dL Calculated Osmolality (280-300) Calcium (8.6-10.3) mg/dL Total Bilirubin (0.3-1.0) mg/dL Direct Bilirubin (0.0-0.2) mg/dL Indirect Bilirubin (0.0-1.2) mg/dL AST (13-39) Units/L ALT (7-52) Units/L Alkaline Phosphatase (34-104) Units/L Serum Total Protein (6.4-8.9) g/dL Albumin (3.5-5.7) g/dL Globulin (2.4-3.5) g/dL Albumin/Globulin Ratio (1.1-2.2) Urine Color Yellow (Yellow) Urine Clarity Cloudy A (Clear) Urine pH 5.5 (5.0-8.0) pH Units Ur Specific [place] 1.024 (1.010-1.025) Urine Protein 30 H (Neg-Trace) mg/dL Urine Glucose (UA) 500 H (Normal) mg/dL Urine Ketones Negative (Negative) mg/dL Urine Blood Negative (Negative) Urine Nitrite Negative (Negative) Urine Bilirubin Small H (Negative) Urine Urobilinogen Normal (Normal) mg/dL Ur Leukocyte Esterase Negative (Negative) Urine Microscopic RBC 0-3 (0-3) per hpf Urine Microscopic WBC 3-5 H (0-3) per hpf Ur Squamous Epith Cells Many H (None-Few) per lpf Calcium Oxalate Crystal Present Amorphous Sediment Many H (Few) Urine Bacteria Moderate H (None-Few) per hpf Hyaline Casts Few (None-Few) per lpf Urine Mucus Many H (Few) Ur Culture Indicated? NO (NO) Stool Occult Bld Scrn Positive A (Negative) 08/14/18 Range/Units 21:38 WBC (4.3-11.1) K/mcL RBC (3.82-4.97) M/mcL Hgb (11.5-15.4) g/dL Hct (35.3-44.9) % MCV (83.0-100.0) fL MCH (28.0-33.3) pg MCHC (31.6-35.5) g/dL RDW (11.5-14.5) % Plt Count (140-400) K/mcL MPV (9.4-12.4) fL Immature Gran % (0-4) % Seg Neutrophils % % Lymphocytes % % Monocytes % % Eosinophils % % Basophils % % Neutrophils # (1.6-8.9) K/mcL Lymphocytes # (0.6-4.6) K/mcL Monocytes # (0.0-1.3) K/mcL Eosinophils # (0.0-0.6) K/mcL Basophils # (0.0-0.2) K/mcL Sodium 138 (136-145) mEq/L Potassium 3.9 (3.5-5.1) mEq/L Chloride 97 L (98-107) mEq/L Carbon Dioxide 30 H (23-29) mEq/L BUN 43 H (8-23) mg/dL Creatinine 0.67 (0.60-1.20) mg/dL Est GFR ( Amer) > 60 (> 60) Est GFR (Non-Af Amer) > 60 (> 60) BUN/Creatinine Ratio 64 H (6-26) Glucose 202 H (70-105) mg/dL Calculated Osmolality 303 H (280-300) Calcium 9.4 (8.6-10.3) mg/dL Total Bilirubin 0.4 (0.3-1.0) mg/dL Direct Bilirubin 0.0 (0.0-0.2) mg/dL Indirect Bilirubin 0.4 (0.0-1.2) mg/dL AST 17 (13-39) Units/L ALT 11 (7-52) Units/L Alkaline Phosphatase 68 (34-104) Units/L Serum Total Protein 6.4 (6.4-8.9) g/dL Albumin 3.2 L (3.5-5.7) g/dL Globulin 3.2 (2.4-3.5) g/dL Albumin/Globulin Ratio 1.0 L (1.1-2.2) Urine Color (Yellow) Urine Clarity (Clear) Urine pH (5.0-8.0) pH Units Ur Specific [place] (1.010-1.025) Urine Protein (Neg-Trace) mg/dL Urine Glucose (UA) (Normal) mg/dL Urine Ketones (Negative) mg/dL Urine Blood (Negative) Urine Nitrite (Negative) Urine Bilirubin (Negative) Urine Urobilinogen (Normal) mg/dL Ur Leukocyte Esterase (Negative) Urine Microscopic RBC (0-3) per hpf Urine Microscopic WBC (0-3) per hpf Ur Squamous Epith Cells (None-Few) per lpf Calcium Oxalate Crystal Amorphous Sediment (Few) Urine Bacteria (None-Few) per hpf Hyaline Casts (None-Few) per lpf Urine Mucus (Few) Ur Culture Indicated? (NO) Stool Occult Bld Scrn (Negative) - EKG Data EKG #1 EKG attestation: Yes I reviewed and interpreted this EKG. EKG results narrative: EKG shows what appears to be multifocal atrial tachycardia at a rate of 1 42 bpm , normal intervals, MA appears to be constant, P-wave morphologies do change, no ST or T-wave abnormalities
[2017-10-18 21:57] LABS: Basophils % 0.2 %; Hematocrit 35.7 % (35.3-44.9); Hemoglobin 11.8 g/dL (11.5-15.4); Immature Granulocytes % 1.6 % (0-4); Lymphocytes # 1.6 K/mcL (0.6-4.6); Lymphocytes % 7.7 %; Mean Corpuscular HGB Conc 33.1 g/dL (31.6-35.5); Mean Corpuscular Hemoglobin 25.8 pg (28.0-33.3); Mean Corpuscular Volume 78.1 fL (83.0-100.0); Mean Platelet Volume 9.1 fL (9.4-12.4); Monocytes # 1.4 K/mcL (0.0-1.3); Monocytes % 6.6 %; Neutrophils # 17.5 K/mcL (1.6-8.9); Platelet Count 397 K/mcL (140-400); Red Blood Count 4.57 M/mcL (3.82-4.97); Segmented Neutrophils % 83.9 %
[2017-10-18 22:07] LABS: Alanine Aminotransferase 11 Units/L (7-52); Albumin 3.2 g/dL (3.5-5.7); Alkaline Phosphatase 68 Units/L (34-104); Aspartate Amino Transferase 17 Units/L (13-39); BUN/Creatinine Ratio 64 (6-26); Bilirubin,Indirect 0.4 mg/dL (0.0-1.2); Bilirubin,Total 0.4 mg/dL (0.3-1.0); Blood Urea Nitrogen 43 mg/dL (8-23); Calcium 9.4 mg/dL (8.6-10.3); Carbon Dioxide 30 mEq/L (23-29); Chloride 97 mEq/L (98-107); Globulin 3.2 g/dL (2.4-3.5); Glucose 202 mg/dL (70-105); Osmolality,Calculated 303 (280-300); Potassium 3.9 mEq/L (3.5-5.1); Sodium 138 mEq/L (136-145); Total Protein 6.4 g/dL (6.4-8.9); eGFR For Non-African Americans > 60 (> 60)
[2017-10-18] MEDS ORDERED: Ondansetron 4 MG/2 ML VIAL IVP ONE (23:14)
[2017-10-19] MEDS ORDERED: 0.9 % Sodium Chloride 1,000 ML ONE (00:21)
[2017-10-19] MEDS ORDERED: 0.9 % Sodium Chloride 1,000 ML IVC ONE ×2 (00:24→01:35)
[2017-10-19] MEDS ORDERED: Piperacillin/Tazobactam 3.375 GM in 0.9 % Sodium Chloride Mini Bag 100 ML IVPB ONE (01:03)
[2017-10-19] MEDS ORDERED: Pantoprazole 40 MG VIAL IVP ONE (01:05)
[2017-10-19] MEDS: 0.9 % Sodium Chloride 1,000 ML IVC SCH ×3 (04:06→22:18)
[2017-10-19] MEDS ORDERED: Naloxone 0.4 MG/ML INJ IVP PRN (04:55)
--- NOTE | 2017-10-19 05:26 | Internal Med History&Physical ---
Date of Encounter: 10/19/17 Time of Encounter: 04:20 Internal Medicine - H&P: HPI Chief complaint: GI bleed Admitted From: Home Plans for Post Hospital Care: Home History of present illness: Ms. Choi is a 72 year old female Patient presented from a senior living with her 2 sisters, as they were concerned that she was not eating or drinking and loosing lots of weight. She has been at the senior living since last january, but only recently have they noticed these changes with her. She also has had a few episodes of coffee ground emesis as well, most recently down in the ER prior to her arrival to the medical floor. She has not had this in the past. The patient's sisters state that the nursing staff are not feeding her, not spending enough time with her and that is why she is loosing weight. They had last visited her 2 weeks ago and she was noted to be normal at that time. Of note, as per family the patient has a chronic hip fracture that can not be repaired due to patient's history of COPD. She is wheelchair bound for this reason. In the ER Patient was occult blood positive, lungs showed hyperinflation but no acute disease. UA was negative for infection. He labs showed an H/H of 11.8/ 35.7. Her serum protein was normal but her albumin was slighty low at 3.2. Her kidney function was wnl. Upon my assessment patient is responsive to name, and answers questions but she is somnolent. She was unable to answer review of system questions. Past Med Surg Social Fam HX - Past Medical History Medical history: dementia, hyperlipidemia, hypertension, COPD Additional medical history: contractures Psychiatric history: no psych history - Past Surgical History Surgical History: other, hysterectomy Additional surgical history: gallbladder removal - Social History Smoking Status: Former smoker Smokeless Tobacco Status: No Alcohol use: none Drug use: none - Family History Brother Family Member Ethnicity: Non- Living Status: Still Living Sister Family Member Ethnicity: Non- Living Status: Still Living Mother Family Member Ethnicity: Non- Living Status: Hx Family Cardiac Disorders: Yes (HD) Hx Family Respiratory Disorders: No Hx Family Cancer: Yes Hx Family GI Disorders: No Hx Family Endocrine Disorder: No Hx Family Neuromuscular Disorders: No Hx Family Neurologic Disorders: No Hx Family HEENT Disorders: No Hx Family Autoimmune Disorders: No Father Family Member Ethnicity: Non- Living Status: Internal Medicine - H&P: Meds Alendronate Sodium [Fosamax] 70 mg PO RAYMUNDO 10/26/16 [History] Benztropine [Cogentin] 1 mg PO HS 10/26/16 [History] Calcium Carbonate/Vitamin D2 [Ra Oyster Shell-Vitamin D Tab] 1 tab PO DAILY [History] Acetaminophen [Tylenol] 650 mg PO Q6HR PRN #0 tab 10/28/16 [Rx] Potassium Chloride [Klor-Con 10] 10 meq PO DAILY #30 10/28/16 [Rx] Guaifenesin [Mucinex] 600 mg PO Q12H 02/08/17 [History] Lisinopril [Zestril] 10 mg PO DAILY 02/08/17 [History] Aspirin [Lo-Dose Aspirin EC] 81 mg PO DAILY 08/17/17 [History] Diphenoxylate/Atropine [Lomotil 2.5 mg/0.025 mg] 2 tab PO QID PRN 08/17/17 [ History] Ferrous Sulfate [Iron] 325 mg PO DAILY 08/17/17 [History] Fluticasone/Vilanterol [Breo Ellipta 200-25 Mcg INH] 1 puff IH DAILY 08/17/17 [ History] Ipratropium/Albuterol Neb [Duoneb] 3 ml IH Q6HR PRN 08/17/17 [History] Omeprazole [PriLOSEC] 20 mg PO DAILY 08/17/17 [History] Metoprolol [Lopressor] 25 mg PO BID tablet 08/22/17 [Rx] 3 Allergy/AdvReac Type Severity Reaction Status Date / Time No Known Allergies Allergy Verified 01/13/17 08:27 All Systems PM: A 10-system review of systems was performed and is negative for pertinent findings except as documented above in the HPI. - Constitutional Vitals: Temp Pulse Resp BP Pulse Ox 97.7 F 116 14 92/63 85 10/19/17 04:25 10/19/17 04:25 10/19/17 04:25 10/19/17 04:25 10/19/17 04:25 General appearance: Present: cachectic, disheveled, underweight - Head Head exam: Present: normal inspection - Respiratory Respiratory exam: Present: CTAB. Absent: wheezes - Cardiovascular Cardiovascular exam: Present: RRR. Absent: diastolic murmur, systolic murmur - GI/Abdominal GI/Abdominal exam: Present: normal bowel sounds, soft. Absent: tenderness - Extremities Exam Additional comments: Thin, legs have multiple abrasions and healing wounds of various age. - Neurological Exam Additional comments: Could not assess due to patient's position - Skin Skin exam: Present: abrasion Additional comments: Multiple abrasions to legs and arms of various age Internal Med - H&P Results - Labs CBC & Chem 7: 10/19/17 06:21 10/19/17 05:55 - Assessment and plan (1) GI bleed Current Visit: Yes Status: Acute Assessment and plan: Patient has had multiple occurrences of coffee ground emesis. Hemoglobin initially 11.8 in the ER. Occult blood positive. Patient is malnourished, but will need to keep NPO until source of bleeding found. Continue to monitor Type and screen Protonix given in the ER, continue IV protonix GI consult today Qualifiers: Qualified Code(s): K92.2 - Gastrointestinal hemorrhage, unspecified (2) Failure to thrive in adult Current Visit: Yes Status: Acute Assessment and plan: Patient has been losing weight over the last few weeks at least according to family. States that she has not been wanting to eat lately. Has been prescribed protein shakes to help with her nutrition. Patient was given a dose of zosyn in the ER because at the time it was felt that she may have an infection, however this was later felt to be not necessary. Nutrition consult Consider possible G-tube for feedings if not able to eat (3) COPD (chronic obstructive pulmonary disease) Current Visit: No Status: Chronic Assessment and plan: Chronic, not wheezy on exam. Continue oxygen as needed. Continuous pulse ox at bed side. Qualifiers: COPD type: chronic bronchitis Chronic bronchitis type: simple Qualified Code(s): J41.0 - Simple chronic bronchitis (4) Mobility impaired Current Visit: No Status: Chronic Assessment and plan: Secondary to chronic fractures, apparent dementia as well Continue to monitor. - Time Spent With Patient Total time spent is greater than 50% in coordination of care (as documented) at patient's floor/unit and/or counseling patient: Greater than 35 minutes
[2017-10-19 06:21] LABS: BUN/Creatinine Ratio 85 (6-26); Blood Urea Nitrogen 40 mg/dL (8-23); Calcium 7.1 mg/dL (8.6-10.3); Carbon Dioxide 23 mEq/L (23-29); Chloride 110 mEq/L (98-107); Glucose 145 mg/dL (70-105); Osmolality,Calculated 304 (280-300); Potassium 4.2 mEq/L (3.5-5.1); Sodium 141 mEq/L (136-145); eGFR For Non-African Americans > 60 (> 60)
[2017-10-19 07:18] LABS: Hemoglobin 8.4 g/dL (11.5-15.4); Mean Corpuscular HGB Conc 32.3 g/dL (31.6-35.5); Mean Corpuscular Hemoglobin 26.3 pg (28.0-33.3); Mean Corpuscular Volume 81.3 fL (83.0-100.0); Mean Platelet Volume 9.3 fL (9.4-12.4); Platelet Count 256 K/mcL (140-400)
--- NOTE | 2017-10-19 11:50 | Electrocardiograph Report ---
[address] [address] Test Date: 2017-10-18 Pat Name: Lauren Choi Department: Room: 2A35 Gender: F [employer]: : 1945 Requested By: Dipak Piedra Order Number: [id number] Reading MD: Martha Garcia Measurements Intervals [place] Rate: 142 P: 80 WA: 107 QRS: 85 QRSD: 93 T: 89 QT: 305 QTc: 469 Interpretive Statements Sinus tachycardia Borderline right axis deviation Abnormal R-wave progression, early transition Minimal ST depression, inferior leads Respiratory variation Electronically Signed On 10-19-2017 11:48:50 EDT by Martha Garcia
--- NOTE | 2017-10-19 13:52 | Gastroenterology Consult Note ---
<MendezJoao Carr - Last Filed: 10/19/17 13:53> Date of Encounter: 10/19/17 Time of Encounter: 10:25 - Assessment and plan (1) Anemia Current Visit: No Status: Chronic Assessment and plan: Hgb on admission was 11.8 and Hgb this AM 8.4. Continue to monitor CBC and transfuse PRBC as needed. Plan for EGD and colonoscopy tomorrow. Clear liquid diet today, no red or purple. NPO at midnight. If not clear by 6 AM, give 2 tap water enemas. I spoke with her sister Hui Galarza (POA) who agreed to procedures. Qualifiers: Anemia type: iron deficiency Iron deficiency anemia type: unspecified iron deficiency Qualified Code(s): D50.9 - Iron deficiency anemia, unspecified (2) GI bleed Current Visit: Yes Status: Acute Assessment and plan: Plan for EGD and colonoscopy tomorrow. Clear liquid diet today, no red or purple. NPO at midnight. If not clear by 6 AM, give 2 tap water enemas. I spoke with her sister Hui Galarza (POA) who agreed to procedures. Qualifiers: Qualified Code(s): K92.2 - Gastrointestinal hemorrhage, unspecified - Time Spent With Patient Total time spent is greater than 50% in coordination of care (as documented) at patient's floor/unit and/or counseling patient: GI History of Present Illness - Data of Consult Patient: known to practice within the last 3 years Consult date: 10/19/17 Requesting Physician: Parish Montes De Oca - Consult Narrative Reason for consult: GI bleed History of present illness: Ms. Choi is a 72 year old female with PMHx of dementia, HLD, HTN, COPD who has lived in a senior care since January, who was brought in at the family's request because they say that she has lost significant weight since she arrived at the senior care and that they believe she is not being fed. She also has had a few episodes of coffee ground emesis as well, most recently down in the ER prior to her arrival to the medical floor. Occult blood positive in the ED. Hgb on admission was 11.8 and Hgb this AM 8.4. Information obtained from chart review. Patient responded to name, but was unable to answer questions. Procedures: ERCP 10/31/2014 Dr. 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 EGD 01/01/2009 Dr. Lorenzana: Esophagitis Colonoscopy 01/01/2009 Dr. Lorenzana: Hyperplastic polyp Past Med Surg Social Fam HX - Past Medical History Medical history: dementia, hyperlipidemia, hypertension, COPD Additional medical history: contractures Psychiatric history: no psych history - Past Surgical History Surgical History: other, hysterectomy Additional surgical history: gallbladder removal - Social History Smoking Status: Former smoker Smokeless Tobacco Status: No Alcohol use: none Drug use: none - Family History Brother Family Member Ethnicity: Non- Living Status: Still Living Sister Family Member Ethnicity: Non- Living Status: Still Living Mother Family Member Ethnicity: Non- Living Status: Hx Family Cardiac Disorders: Yes (HD) Hx Family Respiratory Disorders: No Hx Family Cancer: Yes Hx Family GI Disorders: No Hx Family Endocrine Disorder: No Hx Family Neuromuscular Disorders: No Hx Family Neurologic Disorders: No Hx Family HEENT Disorders: No Hx Family Autoimmune Disorders: No Father Family Member Ethnicity: Non- Living Status: ROS unobtainable: due to mental status - Constitutional Vitals: Temp Pulse Resp BP Pulse Ox 98.4 F 120 17 91/65 99 10/19/17 11:19 10/19/17 11:19 10/19/17 11:19 10/19/17 11:19 10/19/17 11:19 General appearance: Present: cachectic, cooperative, no acute distress. Absent : answers questions appropriately - Head Head exam: Present: atraumatic, normocephalic - Eye Eye exam: Present: normal appearance, sclera anicteric - ENT ENT exam: Present: mucous membranes dry - Neck Neck exam general surgery: Present: normal inspection, trachea midline - Respiratory Respiratory exam: Present: decreased breath sounds, CTAB - Cardiovascular Cardiovascular exam: Present: RRR, +S1, +S2 - GI/Abdominal GI/Abdominal exam: Present: soft, no peritoneal signs. Absent: distended, firm , guarding, tenderness - Rectal Rectal exam: Present: deferred - Extremities Exam Extremities exam: Present: warm - Neurological Exam Additional comments: Responds to name, unable to answer questions - Psychiatric Psychiatric exam: Present: normal affect, normal mood - Skin Skin exam: Present: dry, intact, normal color, warm Results - Labs CBC & Chem 7: 10/19/17 06:21 10/19/17 05:55 Labs: Last Result Calcium 7.1 mg/dL (8.6-10.3) L 10/19/17 05:55 Entire Visit Hgb 8.4 g/dL (11.5-15.4) L D 10/19/17 06:21 Hct 26.0 % (35.3-44.9) L 10/19/17 06:21 Total Bilirubin 0.4 mg/dL (0.3-1.0) 10/18/17 21:38 AST 17 Units/L (13-39) 10/18/17 21:38 ALT 11 Units/L (7-52) 10/18/17 21:38 Consult Discharge Plan - Plan Referrals: NONE,PCP [Primary Care Provider] - <Elvi Bowen - Last Filed: 10/19/17 17:34> Date of Encounter: 10/19/17 Time of Encounter: 14:00 - Time Spent With Patient Total time spent is greater than 50% in coordination of care (as documented) at patient's floor/unit and/or counseling patient: GI History of Present Illness - Data of Consult Requesting Physician: Parish Montes De Oca - Consult Narrative History of present illness: Ms. Choi is a 72 year old female - Constitutional Vitals: Temp Pulse Resp BP Pulse Ox 97.6 F 108 16 99/64 98 10/19/17 16:02 10/19/17 16:02 10/19/17 16:02 10/19/17 16:02 10/19/17 16:02 Results - Labs CBC & Chem 7: 10/19/17 15:16 10/19/17 05:55 Labs: Last Result Calcium 7.1 mg/dL (8.6-10.3) L 10/19/17 05:55 Entire Visit Hgb 7.8 g/dL (11.5-15.4) L 10/19/17 15:16 Hct 23.9 % (35.3-44.9) L 10/19/17 15:16 Total Bilirubin 0.4 mg/dL (0.3-1.0) 10/18/17 21:38 AST 17 Units/L (13-39) 10/18/17 21:38 ALT 11 Units/L (7-52) 10/18/17 21:38 - Attending Attestation I have personally performed a face to face evaluation on this patient. I have reviewed and agree with the care plan. History and Exam by me shows: Patient seen at the bedside. Patient with underlying dementia and no information can be obtained from the patient. Assessment: Patient with the iron deficiency anemia with weight loss. Rule out GI blood loss causes. Recommendation: EGD and colonoscopy in the morning
[2017-10-19 15:51] LABS: Eosinophils % 0.1 %
[2017-10-19 15:58] LABS: Hematocrit 23.9 % (35.3-44.9); Hemoglobin 7.8 g/dL (11.5-15.4); Immature Granulocytes % 0.7 % (0-4); Lymphocytes # 2.1 K/mcL (0.6-4.6); Lymphocytes % 21.8 %; Mean Corpuscular HGB Conc 32.6 g/dL (31.6-35.5); Mean Corpuscular Hemoglobin 26.8 pg (28.0-33.3); Mean Corpuscular Volume 82.1 fL (83.0-100.0); Mean Platelet Volume 9.3 fL (9.4-12.4); Monocytes # 0.6 K/mcL (0.0-1.3); Monocytes % 6.4 %; Platelet Count 245 K/mcL (140-400); Red Blood Count 2.91 M/mcL (3.82-4.97); Red Cell Distribution Width 17.2 % (11.5-14.5)
[2017-10-19] MEDS ORDERED: Polyethylene Glycol 3350 255 GM POWDER PO ONE (17:00)
[2017-10-19] MEDS: Pantoprazole 40 MG VIAL IVP SCH (17:13)
[2017-10-20] MEDS: Pantoprazole 40 MG VIAL IVP SCH ×2 (06:08→18:51)
[2017-10-20] MEDS: 0.9 % Sodium Chloride 1,000 ML IVC SCH ×2 (09:53→12:52)
[2017-10-20 11:57] LABS: Eosinophils % 0.3 %; Hemoglobin 6.9 g/dL (11.5-15.4); Immature Granulocytes % 0.5 % (0-4); Lymphocytes # 1.7 K/mcL (0.6-4.6); Lymphocytes % 17.2 %; Mean Corpuscular HGB Conc 31.4 g/dL (31.6-35.5); Mean Corpuscular Hemoglobin 25.6 pg (28.0-33.3); Mean Corpuscular Volume 81.5 fL (83.0-100.0); Monocytes # 0.6 K/mcL (0.0-1.3); Monocytes % 6.3 %; Neutrophils # 7.5 K/mcL (1.6-8.9); Platelet Count 247 K/mcL (140-400); Red Cell Distribution Width 16.9 % (11.5-14.5); Segmented Neutrophils % 75.7 %
[2017-10-20 12:31] LABS: BUN/Creatinine Ratio 53 (6-26); Blood Urea Nitrogen 17 mg/dL (8-23); Calcium 7.2 mg/dL (8.6-10.3); Carbon Dioxide 27 mEq/L (23-29); Chloride 111 mEq/L (98-107); Glucose 93 mg/dL (70-105); Magnesium 1.4 mg/dL (1.6-2.6); Osmolality,Calculated 295 (280-300); Sodium 142 mEq/L (136-145); eGFR For Non-African Americans > 60 (> 60)
[2017-10-20] MEDS ORDERED: Calcium Gluconate 2,000 MG in 0.9 % Sodium Chloride 100 ML IVPB ONE (15:15)
[2017-10-20] MEDS: 0.9 % Sodium Chloride w KCl 40 MEQ/1,000 ML MLS IVC SCH (16:23)
[2017-10-20] MEDS ORDERED: *HR* Midazolam HCl 5 MG/5 ML VIAL IVP ONE ×2 (16:42→17:11)
[2017-10-20] MEDS ORDERED: *HR* FentaNYL (PF) 100 MCG/2 ML VIAL ONE (16:42)
[2017-10-20] MEDS ORDERED: Simethicone 40 MG/0.6 ML MLS IR ONE (17:11)
[2017-10-20] MEDS ORDERED: Tetracaine/Benzocaine/Butamben 200MG/SPRAY (100SPY/BOT) MM ONE (17:11)
[2017-10-20] MEDS ORDERED: *HR* FentaNYL (PF) 100 MCG/2 ML VIAL IVP ONE (17:11)
--- NOTE | 2017-10-20 17:12 | Pre-Sedation Evaluation ---
Pre-sedation evaluation - Pre-sedation checklist Date of procedure: 10/20/17 Recent Vitals: Last Vital Signs Temp 97.7 F 10/20/17 17:03 Pulse 98 10/20/17 17:10 Resp 16 10/20/17 17:10 BP 151/70 10/20/17 17:10 Pulse Ox 100 10/20/17 17:10 ASA Classification *see protocol: CLASS III-Severe systemic disease Plan of Care: Pt appropriate candidate for procedure/moderate/conscious sedation Cardiac Registry (Cardio Only) - Functional Capacity - Clincal Frailty Scale
[2017-10-20] MEDS ORDERED: 0.9 % Sodium Chloride 250 ML ONE (20:49)
[2017-10-21] MEDS: Pantoprazole 40 MG VIAL IVP SCH ×2 (06:00→18:39)
[2017-10-21 06:42] LABS: Basophils % 0.1 %; Eosinophils # 0.1 K/mcL (0.0-0.6); Eosinophils % 0.6 %; Hematocrit 36.7 % (35.3-44.9); Immature Granulocytes % 0.7 % (0-4); Lymphocytes # 1.8 K/mcL (0.6-4.6); Lymphocytes % 20.8 %; Mean Corpuscular HGB Conc 34.1 g/dL (31.6-35.5); Mean Corpuscular Volume 85.2 fL (83.0-100.0); Mean Platelet Volume 9.3 fL (9.4-12.4); Monocytes # 0.6 K/mcL (0.0-1.3); Monocytes % 6.9 %; Neutrophils # 6.1 K/mcL (1.6-8.9); Platelet Count 216 K/mcL (140-400); Red Blood Count 4.31 M/mcL (3.82-4.97); Red Cell Distribution Width 15.3 % (11.5-14.5); Segmented Neutrophils % 70.9 %
[2017-10-21 06:43] LABS: Hemoglobin 12.5 g/dL (11.5-15.4)
[2017-10-21 07:05] LABS: BUN/Creatinine Ratio 20 (6-26); Blood Urea Nitrogen 7 mg/dL (8-23); Calcium 7.2 mg/dL (8.6-10.3); Carbon Dioxide 24 mEq/L (23-29); Chloride 111 mEq/L (98-107); Glucose 80 mg/dL (70-105); Osmolality,Calculated 285 (280-300); Potassium 3.2 mEq/L (3.5-5.1); Sodium 139 mEq/L (136-145); eGFR For Non-African Americans > 60 (> 60)
[2017-10-21] MEDS: 0.9 % Sodium Chloride w KCl 40 MEQ/1,000 ML MLS IVC SCH ×2 (09:17→10:13)
--- NOTE | 2017-10-21 20:46 | Internal Med Progress Note ---
Hospitalist Progress Note - Encounter Date of Encounter: 10/19/17 Time of Encounter: 19:00 - Exam Vitals: Temp Pulse Resp BP Pulse Ox 97.8 F 134 18 101/63 91 10/21/17 20:04 10/21/17 20:04 10/21/17 20:04 10/21/17 20:04 10/21/17 20:04 Exam: xxx - Assessment and Plan (1) UGIB (upper gastrointestinal bleed) Current Visit: Yes Status: Acute (2) Acute blood loss anemia Current Visit: Yes Status: Acute (3) Altered mental state Current Visit: Yes Status: Acute (4) Failure to thrive in adult Current Visit: Yes Status: Acute (5) COPD (chronic obstructive pulmonary disease) Current Visit: Yes Status: Acute (6) Dementia with psychosis Current Visit: Yes Status: Chronic - Summary of Assessment and Plan Summary of Assessment and Plan: SUBJECTIVE: The patient is very drowsy/somnolent. She opens her eyes to my loud voice. She does not answer my questions. She does not her follow my commands. We have not observed any upper GI bleeding see his admitting her to the floor. No respiratory or pain distress is seen. The patient is kept nothing by mouth; gets IV fluids. GI consult is requested. OBJECTIVE: Skin: Free of rash and discoloration. ENMT: Oral/pharyngeal mucosa is normal in appearance. Eyes: Sclera is white. There is no discharge from eyes. Respiratory: Normal breath sounds; no crackles or wheezes. CV: Heart is regular; no gallop or murmur. GI: Abdomen is soft and not tender. There is no palpable mass or visceromegaly. Neuro: She is moving all 4 extremities. She has normal sized pupils responding to light. ASSESSMENT AND PLAN: Upper GI bleeding (coffee-ground vomiting before this admission) with acute blood loss anemia. Her hemoglobin at admission was 11.8; it is 7.8 at 3:16 PM. GI is consulted. They are planning to do upper/lower endoscopy. She is on IV Protonix. Failure to thrive in an adult. She has lost several pounds recently. She would benefit from upper/lower endoscopy. She has underlying COPD. This may be the only reason for her losing weight. Dementia with psychosis. This is likely cause of her taking haloperidol and Cogentin. We will keep those 2 medications on hold at this time. This may help her altered mental status. DISPOSITION: xxx - Time Spent with Patient Total time spent is greater than 50% in coordination of care (as documented) at patient's floor/unit and/or counseling patient: 25 - 35 minutes Internal Medicine: Result - Labs CBC & Chem 7: 10/21/17 06:26 10/21/17 06:26 Labs: Short CBC 10/21/17 Range/Units 06:26 WBC 8.6 (4.3-11.1) K/mcL Hgb 12.5 D (11.5-15.4) g/dL Hct 36.7 (35.3-44.9) % Plt Count 216 (140-400) K/mcL Neutrophils # 6.1 (1.6-8.9) K/mcL BMP 10/21/17 06:26 Sodium 139 Potassium 3.2 L Chloride 111 H Carbon Dioxide 24 BUN 7 L Creatinine 0.35 L Glucose 80 Calcium 7.2 L - Impressions Impressions KUB X-Ray 10/19/17 19:05 IMPRESSION: Nasogastric tube side port projects over the distal esophagus. Recommend advancing 6 to 7 cm. D/ / 10/19/2017 20:46:36 Vishal Walton MD / [email or web address] Interpreting Provider: Vishal Walton MD Consult Discharge Plan - Plan Referrals: NONE,PCP [Primary Care Provider] - (3) Altered mental state Qualifiers: Altered mental status type: somnolence Qualified Code(s): R40.0 - Somnolence (5) COPD (chronic obstructive pulmonary disease) Qualifiers: COPD type: unspecified COPD Qualified Code(s): J44.9 - Chronic obstructive pulmonary disease, unspecified
--- NOTE | 2017-10-21 21:00 | Internal Med Progress Note ---
Hospitalist Progress Note - Encounter Date of Encounter: 10/20/17 Time of Encounter: 19:00 - Exam Vitals: Temp Pulse Resp BP Pulse Ox 97.8 F 134 18 101/63 91 10/21/17 20:04 10/21/17 20:04 10/21/17 20:04 10/21/17 20:04 10/21/17 20:04 Exam: xxx - Assessment and Plan (1) UGIB (upper gastrointestinal bleed) Current Visit: Yes Status: Acute (2) Acute blood loss anemia Current Visit: Yes Status: Acute (3) Acute hypokalemia Current Visit: Yes Status: Acute (4) Hypomagnesemia Current Visit: Yes Status: Acute (5) Altered mental state Current Visit: Yes Status: Acute (6) Failure to thrive in adult Current Visit: Yes Status: Acute (7) COPD (chronic obstructive pulmonary disease) Current Visit: Yes Status: Acute (8) Dementia with psychosis Current Visit: Yes Status: Chronic DVT Prophylaxis: gi bleed - Summary of Assessment and Plan Summary of Assessment and Plan: SUBJECTIVE: The patient is more alert today. Her eyes are open. She told me her first name and last name; otherwise she is disoriented. NG tube is seen. It started draining normal color gastric contents. We have not observed any upper GI bleeding since admitting her to the floor. No respiratory or pain distress is seen. The patient is kept nothing by mouth; gets IV fluids. GI consult is requested. OBJECTIVE: Skin: Free of rash and discoloration. ENMT: Oral/pharyngeal mucosa is normal in appearance. Eyes: Sclera is white. There is no discharge from eyes. Respiratory: Normal breath sounds; no crackles or wheezes. CV: Heart is regular; no gallop or murmur. GI: Abdomen is soft and not tender. There is no palpable mass or visceromegaly. Neuro: She is moving all 4 extremities. She has normal sized pupils responding to light. ASSESSMENT AND PLAN: Upper GI bleeding (coffee-ground vomiting before this admission) with acute blood loss anemia. Her hemoglobin at admission was 11.8; it is 6.9 today morning. She is on nothing by mouth diet/IV fluids. She gets IV Protonix. GI service is planning to do an upper/lower endoscopy. Will transfuse her with 2 units of packed red blood cells. Hypokalemia/hypomagnesemia/hypocalcemia. Likely secondary to IV fluids in a malnourished old woman. Will give her 2 g of IV magnesium sulfate. I will add potassium chloride to her IV fluids. She will get 2 g of calcium gluconateIV. We will check her electrolytes tomorrow. Failure to thrive in an adult. She has lost several pounds recently. She would benefit from upper/lower endoscopy. She has underlying COPD. This may be the only reason for her losing weight. Dementia with psychosis. Likely secondary to haloperidol/Cogentin. We will keep those 2 medications on hold at this time. Her altered mental status got somewhat better today. DISPOSITION: xxx - Time Spent with Patient Total time spent is greater than 50% in coordination of care (as documented) at patient's floor/unit and/or counseling patient: 25 - 35 minutes Plan of Care Discussed with: nurse Internal Medicine: Result - Labs CBC & Chem 7: 10/21/17 06:26 10/21/17 06:26 Labs: Short CBC 10/21/17 Range/Units 06:26 WBC 8.6 (4.3-11.1) K/mcL Hgb 12.5 D (11.5-15.4) g/dL Hct 36.7 (35.3-44.9) % Plt Count 216 (140-400) K/mcL Neutrophils # 6.1 (1.6-8.9) K/mcL BMP 10/21/17 06:26 Sodium 139 Potassium 3.2 L Chloride 111 H Carbon Dioxide 24 BUN 7 L Creatinine 0.35 L Glucose 80 Calcium 7.2 L - Impressions Impressions KUB X-Ray 10/19/17 19:05 IMPRESSION: Nasogastric tube side port projects over the distal esophagus. Recommend advancing 6 to 7 cm. D/ / 10/19/2017 20:46:36 Vishal Walton MD / [email or web address] Interpreting Provider: Vishal Walton MD Consult Discharge Plan - Plan Referrals: NONE,PCP [Primary Care Provider] - (5) Altered mental state Qualifiers: Altered mental status type: somnolence Qualified Code(s): R40.0 - Somnolence (7) COPD (chronic obstructive pulmonary disease) Qualifiers: COPD type: unspecified COPD Qualified Code(s): J44.9 - Chronic obstructive pulmonary disease, unspecified
--- NOTE | 2017-10-21 21:17 | Internal Med Progress Note ---
Hospitalist Progress Note - Encounter Date of Encounter: 10/21/17 Time of Encounter: 19:00 - Exam Vitals: Temp Pulse Resp BP Pulse Ox 97.8 F 134 18 101/63 91 10/21/17 20:04 10/21/17 20:04 10/21/17 20:04 10/21/17 20:04 10/21/17 20:04 Exam: xxx - Assessment and Plan (1) UGIB (upper gastrointestinal bleed) Current Visit: Yes Status: Acute (2) Acute blood loss anemia Current Visit: Yes Status: Acute (3) Acute hypokalemia Current Visit: Yes Status: Acute (4) Hypomagnesemia Current Visit: Yes Status: Acute (5) Altered mental state Current Visit: Yes Status: Acute (6) Failure to thrive in adult Current Visit: Yes Status: Acute (7) COPD (chronic obstructive pulmonary disease) Current Visit: Yes Status: Acute (8) Dementia with psychosis Current Visit: Yes Status: Chronic DVT Prophylaxis: gi bleed - Summary of Assessment and Plan Summary of Assessment and Plan: SUBJECTIVE: I found this patient with her eyes open. She does not show any respiratory or pain distress. NG tube is gone. She has not had any upper GI bleeding since admitting her to the floor. She knows her first name and last name. Otherwise , she is disoriented. OBJECTIVE: Skin: Free of rash and discoloration. ENMT: Oral/pharyngeal mucosa is normal in appearance. Eyes: Sclera is white. There is no discharge from eyes. Respiratory: Normal breath sounds; no crackles or wheezes. CV: Heart is regular; no gallop or murmur. GI: Abdomen is soft and not tender. There is no palpable mass or visceromegaly. Neuro: She is moving all 4 extremities. She has normal sized pupils responding to light. ASSESSMENT AND PLAN: Upper GI bleeding (coffee-ground vomiting before this admission) with acute blood loss anemia. Her hemoglobin at admission was 11.8; it was 6.9 yesterday; 12.5 daily after blood transfusion. She is on clear liquids. She gets IV Protonix. GI service is planning to do an upper/lower endoscopy. Hypokalemia/hypomagnesemia/hypocalcemia. Likely secondary to IV fluids in a malnourished old woman. Better. She got supplemental IV magnesium sulfate and IV calcium gluconate. We added potassium chloride to her IV fluids. Today's potassium is 3.2 (3.0 yesterday) with a magnesium of 1.9 and calcium of 7.2. Failure to thrive in an adult. She has lost several pounds recently. She would benefit from upper/lower endoscopy. She has underlying COPD. This may be the only reason for her losing weight. Dementia with psychosis. Likely secondary to haloperidol/Cogentin. We will keep those 2 medications on hold at this time. Her mental status got significantly better in the last 2 days. - Time Spent with Patient Total time spent is greater than 50% in coordination of care (as documented) at patient's floor/unit and/or counseling patient: 25 - 35 minutes Plan of Care Discussed with: nurse Internal Medicine: Result - Labs CBC & Chem 7: 10/21/17 06:26 10/21/17 06:26 Labs: Short CBC 10/21/17 Range/Units 06:26 WBC 8.6 (4.3-11.1) K/mcL Hgb 12.5 D (11.5-15.4) g/dL Hct 36.7 (35.3-44.9) % Plt Count 216 (140-400) K/mcL Neutrophils # 6.1 (1.6-8.9) K/mcL BMP 10/21/17 06:26 Sodium 139 Potassium 3.2 L Chloride 111 H Carbon Dioxide 24 BUN 7 L Creatinine 0.35 L Glucose 80 Calcium 7.2 L - Impressions Impressions KUB X-Ray 10/19/17 19:05 IMPRESSION: Nasogastric tube side port projects over the distal esophagus. Recommend advancing 6 to 7 cm. D/ / 10/19/2017 20:46:36 Vishal Walton MD / [email or web address] Interpreting Provider: Vishal Walton MD Consult Discharge Plan - Plan Referrals: NONE,PCP [Primary Care Provider] - (5) Altered mental state Qualifiers: Altered mental status type: somnolence Qualified Code(s): R40.0 - Somnolence (7) COPD (chronic obstructive pulmonary disease) Qualifiers: COPD type: unspecified COPD Qualified Code(s): J44.9 - Chronic obstructive pulmonary disease, unspecified
[2017-10-22] MEDS: Pantoprazole 40 MG VIAL IVP SCH ×2 (05:34→18:14)
[2017-10-22] MEDS: 0.9 % Sodium Chloride w KCl 40 MEQ/1,000 ML MLS IVC SCH (05:34)
[2017-10-22 06:49] LABS: Basophils % 0.2 %; Eosinophils % 0.2 %; Hematocrit 40.9 % (35.3-44.9); Immature Granulocytes % 0.8 % (0-4); Immature Platelets 3.7 % (1.1-6.1); Lymphocytes # 2.8 K/mcL (0.6-4.6); Lymphocytes % 21.5 %; Mean Corpuscular HGB Conc 34.2 g/dL (31.6-35.5); Mean Corpuscular Hemoglobin 28.3 pg (28.0-33.3); Mean Corpuscular Volume 82.8 fL (83.0-100.0); Mean Platelet Volume 9.3 fL (9.4-12.4); Monocytes # 0.9 K/mcL (0.0-1.3); Neutrophils # 9.1 K/mcL (1.6-8.9); Platelet Count 225 K/mcL (140-400); Red Blood Count 4.94 M/mcL (3.82-4.97); Segmented Neutrophils % 70.3 %
[2017-10-22 07:12] LABS: BUN/Creatinine Ratio 19 (6-26); Blood Urea Nitrogen 6 mg/dL (8-23); Calcium 7.3 mg/dL (8.6-10.3); Carbon Dioxide 14 mEq/L (23-29); Chloride 109 mEq/L (98-107); Glucose 51 mg/dL (70-105); Magnesium 1.7 mg/dL (1.6-2.6); Osmolality,Calculated 279 (280-300); Potassium 3.8 mEq/L (3.5-5.1); Sodium 137 mEq/L (136-145); eGFR For Non-African Americans > 60 (> 60)
[2017-10-22] MEDS ORDERED: Ipratropium/Albuterol Neb 3 ML IH PRN (21:01)
[2017-10-23] MEDS: Pantoprazole 40 MG VIAL IVP SCH ×2 (05:50→16:12)
[2017-10-23 07:19] LABS: Basophils % 0.2 %; Eosinophils # 0.1 K/mcL (0.0-0.6); Eosinophils % 0.5 %; Hematocrit 37.6 % (35.3-44.9); Hemoglobin 12.9 g/dL (11.5-15.4); Immature Granulocytes % 0.5 % (0-4); Immature Platelets 1.7 % (1.1-6.1); Lymphocytes # 1.6 K/mcL (0.6-4.6); Lymphocytes % 16.9 %; Mean Corpuscular HGB Conc 34.3 g/dL (31.6-35.5); Mean Corpuscular Hemoglobin 28.4 pg (28.0-33.3); Mean Corpuscular Volume 82.8 fL (83.0-100.0); Mean Platelet Volume 8.8 fL (9.4-12.4); Monocytes # 0.9 K/mcL (0.0-1.3); Monocytes % 9.3 %; Neutrophils # 6.9 K/mcL (1.6-8.9); Platelet Count 243 K/mcL (140-400); Red Blood Count 4.54 M/mcL (3.82-4.97); Red Cell Distribution Width 15.9 % (11.5-14.5); Segmented Neutrophils % 72.6 %
[2017-10-23 07:59] LABS: BUN/Creatinine Ratio 11 (6-26); Blood Urea Nitrogen 4 mg/dL (8-23); Calcium 7.6 mg/dL (8.6-10.3); Carbon Dioxide 24 mEq/L (23-29); Chloride 105 mEq/L (98-107); Glucose 78 mg/dL (70-105); Magnesium 1.5 mg/dL (1.6-2.6); Osmolality,Calculated 284 (280-300); Potassium 2.7 mEq/L (3.5-5.1); Sodium 139 mEq/L (136-145); eGFR For Non-African Americans > 60 (> 60)
--- NOTE | 2017-10-23 17:13 | Internal Med Progress Note ---
Hospitalist Progress Note - Encounter Date of Encounter: 10/23/17 Time of Encounter: 14:00 - Exam Vitals: Temp Pulse Resp BP Pulse Ox 98.7 F 87 17 163/91 96 10/23/17 15:57 10/23/17 15:57 10/23/17 15:57 10/23/17 15:57 10/23/17 15:57 Exam: xxx - Assessment and Plan (1) UGIB (upper gastrointestinal bleed) Current Visit: Yes Status: Acute (2) Acute blood loss anemia Current Visit: Yes Status: Acute (3) Acute hypokalemia Current Visit: Yes Status: Acute (4) Hypomagnesemia Current Visit: Yes Status: Acute (5) Altered mental state Current Visit: Yes Status: Acute (6) Failure to thrive in adult Current Visit: Yes Status: Acute (7) COPD (chronic obstructive pulmonary disease) Current Visit: Yes Status: Acute (8) Dementia with psychosis Current Visit: Yes Status: Chronic DVT Prophylaxis: gi bleed - Summary of Assessment and Plan Summary of Assessment and Plan: SUBJECTIVE: I found this patient with her eyes open. She does not answer my questions. She does not follow my commands. She does not show any respiratory or pain distress. She has not had any upper GI bleeding since admitting her to the floor. OBJECTIVE: Skin: Free of rash and discoloration. ENMT: Oral/pharyngeal mucosa is normal in appearance. Eyes: Sclera is white. There is no discharge from eyes. Respiratory: Normal breath sounds; no crackles or wheezes. CV: Heart is regular; no gallop or murmur. GI: Abdomen is soft and not tender. There is no palpable mass or visceromegaly. Neuro: She is moving all 4 extremities. She has normal sized pupils responding to light. ASSESSMENT AND PLAN: Upper GI bleeding (coffee-ground vomiting before this admission) with acute blood loss anemia. Her hemoglobin at admission was 7.8; 6.9 on 10/20; 12.9 today (had blood transfusion on 10/20. Hypokalemia/hypomagnesemia/hypocalcemia. Likely secondary to IV fluids in a malnourished old woman. Today's potassium is 2.7. Today's magnesium is 1.5. He We will continue IV and by mouth potassium chloride. We will continue when necessary IV magnesium sulfate. Failure to thrive in an adult. She has lost several pounds recently. She had upper and lower endoscopy. See notes from GI service. She has underlying COPD. This may be the only reason for her losing weight. Dementia with psychosis. She gets injectable psychiatric medication on monthly basis. We will keep Haldol and Cogentin on hold at this time. Her mental status got significantly better in the last few days. - Time Spent with Patient Total time spent is greater than 50% in coordination of care (as documented) at patient's floor/unit and/or counseling patient: 25 - 35 minutes Plan of Care Discussed with: family Internal Medicine: Result - Labs CBC & Chem 7: 10/23/17 06:41 10/23/17 06:41 Labs: Short CBC 10/23/17 Range/Units 06:41 WBC 9.5 (4.3-11.1) K/mcL Hgb 12.9 (11.5-15.4) g/dL Hct 37.6 (35.3-44.9) % Plt Count 243 (140-400) K/mcL Neutrophils # 6.9 (1.6-8.9) K/mcL BMP 10/23/17 06:41 Sodium 139 Potassium 2.7 L Chloride 105 Carbon Dioxide 24 BUN 4 L Creatinine 0.37 L Glucose 78 Calcium 7.6 L Consult Discharge Plan - Plan Referrals: NONE,PCP [Primary Care Provider] - (5) Altered mental state Qualifiers: Altered mental status type: somnolence Qualified Code(s): R40.0 - Somnolence (7) COPD (chronic obstructive pulmonary disease) Qualifiers: COPD type: unspecified COPD Qualified Code(s): J44.9 - Chronic obstructive pulmonary disease, unspecified
--- NOTE | 2017-10-23 17:18 | Internal Med Progress Note ---
Hospitalist Progress Note - Encounter Date of Encounter: 10/22/17 Time of Encounter: 19:00 - Exam Vitals: Temp Pulse Resp BP Pulse Ox 98.7 F 87 17 163/91 96 10/23/17 15:57 10/23/17 15:57 10/23/17 15:57 10/23/17 15:57 10/23/17 15:57 Exam: xxx - Assessment and Plan (1) UGIB (upper gastrointestinal bleed) Current Visit: Yes Status: Acute (2) Acute blood loss anemia Current Visit: Yes Status: Acute (3) Acute hypokalemia Current Visit: Yes Status: Acute (4) Hypomagnesemia Current Visit: Yes Status: Acute (5) Altered mental state Current Visit: Yes Status: Acute (6) Failure to thrive in adult Current Visit: Yes Status: Acute (7) COPD (chronic obstructive pulmonary disease) Current Visit: Yes Status: Acute (8) Dementia with psychosis Current Visit: Yes Status: Chronic DVT Prophylaxis: gi bleed - Summary of Assessment and Plan Summary of Assessment and Plan: SUBJECTIVE: I found the patient and her sister in the same room. The patient takes changed a few words with her sister. It had limited sense. The sister is the patient' s medical power of personal injury attorney. The patient does not show any respiratory or pain distress. She has not had any coffee-ground vomiting in the hospital. We have not seen her having any bowel movements in the hospital. OBJECTIVE: Skin: Free of rash and discoloration. ENMT: Oral/pharyngeal mucosa is normal in appearance. Eyes: Sclera is white. There is no discharge from eyes. Respiratory: Normal breath sounds; no crackles or wheezes. CV: Heart is regular; no gallop or murmur. GI: Abdomen is soft and not tender. There is no palpable mass or visceromegaly. Neuro: She is moving all 4 extremities. She has normal sized pupils responding to light. ASSESSMENT AND PLAN: Upper GI bleeding (coffee-ground vomiting before this admission) with acute blood loss anemia. Her hemoglobin at admission was 11.8; it was 6.9 2 days ago ; 14.0 today (after blood transfusion). She is on clear liquids. She gets IV Protonix. She had upper and lower endoscopy done by GI service. The results are pending. Hypokalemia/hypomagnesemia/hypocalcemia. Better. Potassium is 3.8 with magnesium of 1.7 and calcium of 7.3. Failure to thrive in an adult. She has lost several pounds recently. She has underlying COPD. This may be the only reason for her losing weight. Additionally, her psychiatric illness/psychiatric medications do interfere with her appetite. Dementia with psychosis. She gets a psychiatric medication once a month. We will keep haloperidol and Cogentin on hold. Her mental status got significantly better in the last 2 days. I talked to the patient's sister about the patient's medical conditions. The patient will remain full code. This is what she wanted a year ago, before her psychiatric illness started. - Time Spent with Patient Total time spent is greater than 50% in coordination of care (as documented) at patient's floor/unit and/or counseling patient: 25 - 35 minutes Plan of Care Discussed with: family Internal Medicine: Result - Labs CBC & Chem 7: 10/23/17 06:41 10/23/17 06:41 Labs: Short CBC 10/23/17 Range/Units 06:41 WBC 9.5 (4.3-11.1) K/mcL Hgb 12.9 (11.5-15.4) g/dL Hct 37.6 (35.3-44.9) % Plt Count 243 (140-400) K/mcL Neutrophils # 6.9 (1.6-8.9) K/mcL BMP 10/23/17 06:41 Sodium 139 Potassium 2.7 L Chloride 105 Carbon Dioxide 24 BUN 4 L Creatinine 0.37 L Glucose 78 Calcium 7.6 L Consult Discharge Plan - Plan Referrals: NONE,PCP [Primary Care Provider] - (5) Altered mental state Qualifiers: Altered mental status type: somnolence Qualified Code(s): R40.0 - Somnolence (7) COPD (chronic obstructive pulmonary disease) Qualifiers: COPD type: unspecified COPD Qualified Code(s): J44.9 - Chronic obstructive pulmonary disease, unspecified
[2017-10-24] MEDS: Pantoprazole 40 MG VIAL IVP SCH ×2 (05:47→17:11)
--- NOTE | 2017-10-25 05:48 | Internal Med Progress Note ---
Hospitalist Progress Note - Encounter Date of Encounter: 10/24/17 Time of Encounter: 19:00 - Exam Vitals: Temp Pulse Resp BP Pulse Ox 97.5 F L 69 15 119/80 100 10/25/17 04:11 10/25/17 04:11 10/25/17 04:11 10/25/17 04:11 10/25/17 04:11 Exam: xxx - Assessment and Plan (1) UGIB (upper gastrointestinal bleed) Current Visit: Yes Status: Acute (2) Acute blood loss anemia Current Visit: Yes Status: Acute (3) Acute hypokalemia Current Visit: Yes Status: Acute (4) Hypomagnesemia Current Visit: Yes Status: Acute (5) Altered mental state Current Visit: Yes Status: Acute (6) Failure to thrive in adult Current Visit: Yes Status: Acute (7) COPD (chronic obstructive pulmonary disease) Current Visit: Yes Status: Acute (8) Dementia with psychosis Current Visit: Yes Status: Chronic DVT Prophylaxis: gi bleed - Summary of Assessment and Plan Summary of Assessment and Plan: SUBJECTIVE: The patient is alert but not talking to me. She is not following my commands. She is moving all 4 extremities. She eats very small amounts of foods and drinks relatively small amounts of fluidsonly to some people; when they feed her. OBJECTIVE: Skin: Free of rash and discoloration. ENMT: Oral/pharyngeal mucosa is normal in appearance. Eyes: Sclera is white. There is no discharge from eyes. Respiratory: Normal breath sounds; no crackles or wheezes. CV: Heart is regular; no gallop or murmur. GI: Abdomen is soft and not tender. There is no palpable mass or visceromegaly. Neuro: She is moving all 4 extremities. She has normal sized pupils responding to light. ASSESSMENT AND PLAN: Upper GI bleeding (coffee-ground vomiting before this admission) with acute blood loss anemia. Her hemoglobin at admission was 7.8; 6.9 on 10/20; 12.9 yesterday (had blood transfusion on 10/20). Hypokalemia/hypomagnesemia/hypocalcemia. Likely secondary to IV fluids in a malnourished old woman. Yesterday potassium is 2.7. Today's magnesium is 1.5. He We will continue IV and by mouth potassium chloride. We will continue when necessary IV magnesium sulfate. Failure to thrive in an adult. She has lost several pounds recently. She had upper and lower endoscopy. See notes from GI service. She has underlying COPD. This may be the only reason for her losing weight. Dementia with psychosis. She gets injectable psychiatric medication on monthly basis. We will keep Haldol and Cogentin on hold at this time. Her mental status got significantly better in the last few days. Severe protein calorie malnutrition. This is secondary to very poor intake of calories. It seems like the only solution to this problem would be to insert a feeding tube. We are trying to bring her sister (medical power of attorney recruiter) to talk to her about the patient's nutrition. - Time Spent with Patient Total time spent is greater than 50% in coordination of care (as documented) at patient's floor/unit and/or counseling patient: 25 - 35 minutes Plan of Care Discussed with: nurse Internal Medicine: Result - Labs CBC & Chem 7: 10/23/17 06:41 10/23/17 06:41 - Impressions Impressions Videofluoroscopic Swallow 10/24/17 00:01 IMPRESSION: No penetration or aspiration of thin liquids or applesauce consistency observed. Please see separate speech pathology report for full discussion of findings and recommendations. D/ / Saúl Akers MD / Saúl Akers MD Interpreting Provider: Saúl Akers MD Consult Discharge Plan - Plan Referrals: NONE,PCP [Primary Care Provider] - (5) Altered mental state Qualifiers: Altered mental status type: somnolence Qualified Code(s): R40.0 - Somnolence (7) COPD (chronic obstructive pulmonary disease) Qualifiers: COPD type: unspecified COPD Qualified Code(s): J44.9 - Chronic obstructive pulmonary disease, unspecified
[2017-10-25 06:29] LABS: Basophils % 0.1 %; Eosinophils # 0.1 K/mcL (0.0-0.6); Eosinophils % 0.6 %; Hemoglobin 13.1 g/dL (11.5-15.4); Immature Granulocytes % 0.5 % (0-4); Lymphocytes % 19.1 %; Mean Corpuscular HGB Conc 33.6 g/dL (31.6-35.5); Mean Corpuscular Hemoglobin 28.8 pg (28.0-33.3); Mean Corpuscular Volume 85.7 fL (83.0-100.0); Mean Platelet Volume 8.9 fL (9.4-12.4); Monocytes # 0.9 K/mcL (0.0-1.3); Monocytes % 8.7 %; Neutrophils # 7.3 K/mcL (1.6-8.9); Platelet Count 210 K/mcL (140-400); Red Blood Count 4.55 M/mcL (3.82-4.97); Red Cell Distribution Width 16.4 % (11.5-14.5)
[2017-10-25] MEDS: Pantoprazole 40 MG VIAL IVP SCH (06:34)
[2017-10-25 06:45] LABS: BUN/Creatinine Ratio 26 (6-26); Blood Urea Nitrogen 10 mg/dL (8-23); Carbon Dioxide 32 mEq/L (23-29); Chloride 104 mEq/L (98-107); Glucose 110 mg/dL (70-105); Magnesium 1.6 mg/dL (1.6-2.6); Osmolality,Calculated 290 (280-300); Potassium 4.1 mEq/L (3.5-5.1); Sodium 140 mEq/L (136-145); eGFR For Non-African Americans > 60 (> 60)
[2017-10-25] MEDS: Aspirin Enteric Coated 81 MG Tablet PO SCH (08:47)
[2017-10-25] MEDS: Megestrol Acetate 400 MG/10 ML UDC PO SCH (09:55)
[2017-10-25] MEDS: Budesonide/Formoterol 160/4.5 1 PUFF INH IH SCH ×2 (10:01→21:44)
--- NOTE | 2017-10-25 15:54 | Internal Med Progress Note ---
Hospitalist Progress Note - Encounter Date of Encounter: 10/25/17 Time of Encounter: 09:00 - Subjective Interval History: Patient is nonverbal due to dementia, able to tell me her name but would not answer any other questions. Unable to provide history. Poor appetite. - Exam Vitals: Temp Pulse Resp BP Pulse Ox 98.2 F 88 16 113/70 100 10/25/17 12:12 10/25/17 12:12 10/25/17 12:12 10/25/17 12:12 10/25/17 12:12 Exam: General: cachectic frail elderly female lying in bed, in contracted position Chest: Normal thoracic expansion. Normal breath sounds. Clear to auscultation anterolaterally. Heart: Normal S1 & S2; rhythmic. No rubs or murmurs. Abdomen: Non-distended, soft and nontender Extremities: no pedal edema. contracted lower extremities; non-ambulatory; Neurological: Awake, not alert enough; cannot answer questions, follows a few commands - Assessment and Plan (1) UGIB (upper gastrointestinal bleed) Current Visit: Yes Status: Acute Assessment and Plan: Admitted with reported coffee ground emesis. GI was consulted, patient underwent EGD and colonoscopy. EGD showed reflux esophagitis, hiatal hernia, gastric mucosal atrophy with no active bleeding. Colonoscopy showed diverticulosis with no active bleeding. No further bleeding episodes, hemoglobin is currently stable. (2) Acute blood loss anemia Current Visit: Yes Status: Acute Assessment and Plan: Received 2 units PRBC transfusion during this admission. Hemoglobin is currently stable around 13. (3) Failure to thrive in adult Current Visit: Yes Status: Chronic Assessment and Plan: Patient has poor appetite and poor oral intake, which is a chronic problem. This is likely due to underlying dementia and possibly depression. Discussed at length with patient's power of logging crew foreman is-her sisters at bedside- after explaining the risks and benefits of feeding tube placement, they decided to Defer PEG placement at this time, CODE STATUS has been changed to DNR comfort care arrest/DNI. CREW CAR DRIVER evaluation recommends pureed diet and thin liquids. Modified barium swallow study showed no penetration or aspiration. (4) COPD (chronic obstructive pulmonary disease) Current Visit: Yes Status: Chronic (5) Dementia with psychosis Current Visit: Yes Status: Chronic Assessment and Plan: continue Haldol with Cogentin per home med rec; (6) Acute hypokalemia Current Visit: Yes Status: Resolved (7) Hypomagnesemia Current Visit: Yes Status: Resolved DVT Prophylaxis: not on medical anticoagulation due to anemia; start EPCDs as tolerated; - Time Spent with Patient Total time spent is greater than 50% in coordination of care (as documented) at patient's floor/unit and/or counseling patient: Plan of Care Discussed with: family Internal Medicine: Result - Labs CBC & Chem 7: 10/25/17 06:10 10/25/17 06:10 Labs: Short CBC 10/25/17 Range/Units 06:10 WBC 10.3 (4.3-11.1) K/mcL Hgb 13.1 (11.5-15.4) g/dL Hct 39.0 (35.3-44.9) % Plt Count 210 (140-400) K/mcL Neutrophils # 7.3 (1.6-8.9) K/mcL BMP 10/25/17 06:10 Sodium 140 Potassium 4.1 Chloride 104 Carbon Dioxide 32 H BUN 10 Creatinine 0.39 L Glucose 110 H Calcium 8.0 L Consult Discharge Plan - Plan Referrals: NONE,PCP [Primary Care Provider] - (4) COPD (chronic obstructive pulmonary disease) Qualifiers: COPD type: unspecified COPD Qualified Code(s): J44.9 - Chronic obstructive pulmonary disease, unspecified
[2017-10-26] MEDS: Megestrol Acetate 400 MG/10 ML UDC PO SCH (09:12)
[2017-10-26] MEDS: Aspirin Enteric Coated 81 MG Tablet PO SCH (09:12)
[2017-10-26] MEDS: Budesonide/Formoterol 160/4.5 1 PUFF INH IH SCH (09:43)
--- NOTE | 2017-10-26 10:15 | Discharge Summary ---
- NOTES TO OUTPATIENT PROVIDER Notes to Outpatient Provider: Admitted with concerns for failure to thrive, which is chronic; family declined feeding tube at this time; GI bleed was suspected, but EGD/colonoscopy showed no active bleeding; Date of Encounter: 10/26/17 Time of Encounter: 10:13 - Discharge Diagnosis (1) UGIB (upper gastrointestinal bleed) Priority: Primary Status: Acute (2) Acute blood loss anemia Priority: Primary Status: Acute (3) Failure to thrive in adult Priority: Primary Status: Chronic (4) COPD (chronic obstructive pulmonary disease) Priority: Secondary Status: Chronic Qualifiers: COPD type: unspecified COPD Qualified Code(s): J44.9 - Chronic obstructive pulmonary disease, unspecified (5) Dementia with psychosis Priority: Secondary Status: Chronic (6) Acute hypokalemia Priority: Primary Status: Resolved (7) Hypomagnesemia Priority: Primary Status: Resolved Hospital course: Ms. Choi is a 72 year old female with the above medical problems including dementia and failure to thrive, who was [facility] in by family from [facility] due to concerns of not eating or drinking along with weight loss and intermittent episodes of coffee-ground emesis. Patient is known to me from previous admission and she does have confusion and underlying dementia resulting in poor oral intake. She has been evaluated by speech therapy during both admissions, not noted to have dysphagia or aspiration, cleared for pureed diet and thin liquids. GI was consulted, patient underwent EGD and colonoscopy. EGD showed reflux esophagitis, hiatal hernia, gastric mucosal atrophy with no active bleeding. Colonoscopy showed diverticulosis with no active bleeding. She was noted to have hemoglobin as low as 6.9 during this admission, received 2 units PRBC transfusion and hemoglobin is currently stable around 13. Long discussion was held with patient's sisters, who are her power of ventilation mechanic- after explaining risks and benefits of feeding tube placement, her current functional status, diagnosis of dementia, types of CODE STATUS, they have made a decision to make her DNR comfort care arrest/DNI and declined feeding tube placement at this time. They are also concerned she may pull out the feeding tube due to confusion. They would like to follow-up with the [facility] about her assisted feeding, and will then discuss with her primary care provider about the utility of a feeding tube. Patient has otherwise remained medically and hemodynamically stable, will be discharged back to [facility] today. Metoprolol dose is increased to 50mg BID and potassium chloride is increased to 20mEq daily. Discharge discussed with: family, nurse, social work - Time Spent with Patient Total time spent providing and/or coordinating discharge services: Greater than 30 minutes (45 min) - Discharge Medications Home Medications: Alendronate Sodium [Fosamax] 70 mg PO [id number] 10/26/16 [History] Benztropine [Cogentin] 1 mg PO HS 10/26/16 [History] Acetaminophen [Tylenol] 650 mg PO Q6HR PRN #0 tab 10/28/16 [Rx] Guaifenesin [Mucinex] 600 mg PO Q12H 02/08/17 [History] Aspirin [Lo-Dose Aspirin EC] 81 mg PO DAILY 08/17/17 [History] Diphenoxylate/Atropine [Lomotil 2.5 mg/0.025 mg] 2 tab PO QID PRN 08/17/17 [ History] Ferrous Sulfate [Iron] 325 mg PO DAILY 08/17/17 [History] Fluticasone/Vilanterol [Breo Ellipta 200-25 Mcg INH] 1 puff IH DAILY 08/17/17 [ History] Ipratropium/Albuterol Neb [Duoneb] 3 ml IH Q6HR PRN 08/17/17 [History] Omeprazole [PriLOSEC] 20 mg PO DAILY 08/17/17 [History] Calcium Carbonate/Vitamin D3 [Oyster Shell Calcium-Vit D Tab] 1 tab PO DAILY [History] Dronabinol [Marinol] 2.5 mg PO BID 10/19/17 [History] Haloperidol [Haldol] 1 mg PO BID 10/19/17 [History] Megestrol Acetate [Megace] 800 mg PO DAILY 10/19/17 [History] predniSONE [PredniSONE] 10 mg PO BID 10/19/17 [History] Metoprolol [Lopressor] 50 mg PO BID tablet 10/26/17 [Rx] Potassium Chloride [Klor-Con 10] 20 meq PO DAILY #30 10/26/17 [Rx] Allergies/Adverse Reactions: 3 Allergy/AdvReac Type Severity Reaction Status Date / Time No Known Allergies Allergy Verified 01/13/17 08:27 Date of admission: 10/23/17 17:33 Primary care physician: PCP NONE Consults: 10/24/17 09:12 Consult to Speech Therapy [CONS] Routine Comment: Evaluate, develop and implement POC Reason for Consult: Difficulty swallowing Call Completed: Yes Discharging clinician: Divina Ayala Anticipated date of discharge: 10/26/17 - Constitutional Vitals: Temp Pulse Resp BP Pulse Ox 97.8 F 80 15 133/80 100 10/26/17 07:38 10/26/17 07:38 10/26/17 07:38 10/26/17 07:38 10/26/17 09:44 General appearance: Present: cachectic, A&O X 1, underweight. Absent: answers questions appropriately Exam: . - Cardiovascular Cardiovascular exam: Present: RRR, +S1, +S2. Absent: diastolic murmur, gallop, rubs, systolic murmur - Patient Status Disposition: Transfer SNF Condition: Fair Functional capacity at discharge: bed bound Overall status at discharge: patient is back to baseline - Discharge Instructions Follow Up With: NONE,PCP [Primary Care Provider] - Additional Instructions: F/up with PCP in 1-2 weeks - Diet and Activity Activity: as per physical therapy Diet: advance to your usual diet, other (pureed diet, thin liquids) - VTE Documentation of Mechanical Device: Intermittent pneumatic compression device
--- NOTE | 2017-10-26 10:33 | Physician Discharge Referral ---
ExtendedCare Referral Info Transfer To: [facility] Provider in Charge: Divina Ayala Provider in Charge after Transfer: PCP Institutional Level of Care: Skilled - Diagnosis (1) UGIB (upper gastrointestinal bleed) Priority: Primary Status: Acute (2) Acute blood loss anemia Priority: Primary Status: Acute (3) Failure to thrive in adult Priority: Primary Status: Chronic (4) COPD (chronic obstructive pulmonary disease) Priority: Secondary Status: Chronic (5) Dementia with psychosis Priority: Secondary Status: Chronic (6) Acute hypokalemia Priority: Primary Status: Resolved (7) Hypomagnesemia Priority: Primary Status: Resolved Expected Duration of Placement: [facility] Prognosis: Fair Aware of Diagnosis: Family Aware of Prognosis: Family - Transfer Medications Home Medications: Alendronate Sodium [Fosamax] 70 mg PO RAYMUNDO 10/26/16 [History] Benztropine [Cogentin] 1 mg PO HS 10/26/16 [History] Acetaminophen [Tylenol] 650 mg PO Q6HR PRN #0 tab 10/28/16 [Rx] Guaifenesin [Mucinex] 600 mg PO Q12H 02/08/17 [History] Aspirin [Lo-Dose Aspirin EC] 81 mg PO DAILY 08/17/17 [History] Diphenoxylate/Atropine [Lomotil 2.5 mg/0.025 mg] 2 tab PO QID PRN 08/17/17 [ History] Ferrous Sulfate [Iron] 325 mg PO DAILY 08/17/17 [History] Fluticasone/Vilanterol [Breo Ellipta 200-25 Mcg INH] 1 puff IH DAILY 08/17/17 [ History] Ipratropium/Albuterol Neb [Duoneb] 3 ml IH Q6HR PRN 08/17/17 [History] Omeprazole [PriLOSEC] 20 mg PO DAILY 08/17/17 [History] Calcium Carbonate/Vitamin D3 [Oyster Shell Calcium-Vit D Tab] 1 tab PO DAILY [History] Dronabinol [Marinol] 2.5 mg PO BID 10/19/17 [History] Haloperidol [Haldol] 1 mg PO BID 10/19/17 [History] Megestrol Acetate [Megace] 800 mg PO DAILY 10/19/17 [History] predniSONE [PredniSONE] 10 mg PO BID 10/19/17 [History] Metoprolol [Lopressor] 50 mg PO BID tablet 10/26/17 [Rx] Potassium Chloride [Klor-Con 10] 20 meq PO DAILY #30 10/26/17 [Rx] Allergies/Adverse Reactions: 3 Allergy/AdvReac Type Severity Reaction Status Date / Time No Known Allergies Allergy Verified 01/13/17 08:27 - Respiratory Orders Oxygen / L per min (1-2L/min via NC PRN to keep O2 sat>90%) Smoking Cessation: Smoking cessation has been advised. For more information, call the [place] Tobacco Quit Line at 7-795-AWTD-NOW. - Advance Directives Power of Croze Cutter Helper: Yes (sisters) Code Status: DNR-Arrest/Don't Intubate - Mobility Orders Bedrest - Rehabiliation Orders Rehab Potential: Fair Rehab Orders: Sternal Precautions, ROM Exercises, Evaluation for Physical Therapy, Evaluation for Occupational Therapy - Diet Orders Pureed CERTIFICATION: I certify that the transfer of the above named patient to an Extended Care Facility is necessary for the continuing treatment of the diagnosis listed. The above information is true and accurate reflection of patient's current condition. Confidential - Redisclosure prohibited without a patient's written consent.
[2017-10-26 12:10] VITALS: BP 100/68
== END 2017-10-26 14:22 | DRG 377 ==
LOC: 2ANU 19:54 → EMEROOARM 19:54 → SUATTDRO 10-19 02:28 → 2ANU 10-19 03:20 → SUATTDRO 10-23 17:33
PROVIDERS: ADMIT Family Medicine; ATTEND Internal Medicine
PROC: ENDOEBX (2017-10-20 13:30)